=== PATIENT | male | born 1970 | race Caucasian/White ===

== ENCOUNTER 2018-03-23 19:41 | Emergency (ER) | payer OTHER ==
[~2018-03-23] VITALS: Ht 157.5 cm; Wt 49.9 kg
[2018-03-23 19:44] VITALS: BP 151/110
--- NOTE | 2018-03-23 20:01 | NUR ---
PT BIB WHEELCHAIR TO ER BED 9
--- NOTE | 2018-03-23 20:27 | NUR ---
PT TAKEN TO CT SCAN VIA WHEELCHAIR.
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
--- NOTE | 2018-03-23 20:48 | NUR ---
PT BACK FROM CT SCAN AT THIS TIME W/O INCIDENT.
--- NOTE | 2018-03-23 20:57 | NUR ---
PT TAKEN TO THE RESTROOM W/C ACCOMPANIED BY MYSELF, LUPE HUSSEIN. URINE SAMPLE COLLECTED. PT TAKEN BACK TO BED AT THIS TIME VIA W/C W/O INCIDENT. SAFETY PRECAUTIONS IN PLACE. VSS. PT NEEDS MET. WILL CONTINUE TO MONITOR.
--- NOTE | 2018-03-23 21:17 | NUR ---
PT RESTING COMFORTABLY IN [facility] AT THIS TIME WITH VSS. MOTHER AT BEDSIDE. RR EVEN AND UNLABORED. PT NEEDS MET. SAFETY PRECAUTIONS IN PLACE. WILL CONTINUE TO MONITOR.
[2018-03-23] MEDS ORDERED: BACITRACIN OINT 500 UNITS/GM PKT TP ONE (22:12)
--- NOTE | 2018-03-23 22:40 | NUR ---
PT TAKEN TO BATHROOM VIA WHEELCHAIR, PT ABLE TO WALK AND STAND TO TOILET BY HIMSELF.
[2018-03-23] MEDS ORDERED: ONDANSETRON 4 MG ODT PO ONE (23:10)
[2018-03-23 23:35] VITALS: BP 195/109
--- NOTE | 2018-03-23 23:35 | NUR ---
dr. pate made aware of patients bp on discharge.
--- NOTE | 2018-03-23 23:35 | NUR ---
Patient discharged with v/s stable. Written and verbal after care instructions given and explained. Patient verbalized understanding. Wheel Chair Assisted with to car. All questions addressed prior to discharge. Advised to follow up with PMD.
== END 2018-03-23 23:35 | disposition home or self-care (01) ==
LOC: MED 19:41
DX: S01.01XA Laceration without foreign body of scalp, initial encounter (principal); I10 Essential (primary) hypertension; W18.09XA Striking against other object with subsequent fall, initial encounter; Y93.89 Activity, other specified; Y92.89 Other specified places as the place of occurrence of the external cause; Y99.8 Other external cause status
CPT/HCPCS: 12002; 70450; 72125; 99284; S0119

== ENCOUNTER 2018-06-16 12:06 | Emergency (ER) | payer OTHER ==
[~2018-06-16] VITALS: Ht 157.5 cm; Wt 47.8 kg
[2018-06-16 12:17] VITALS: BP 132/93
--- NOTE | 2018-06-16 12:27 | NUR ---
PT AMB TO BED 3. REPORT GIVEN TO VI ANDRADE. Addendum: 06/16/18 at 1229 by [email or web address] AMB WITH WALKER
--- NOTE | 2018-06-16 12:30 | NUR ---
PT. CAME INTO THE ED DUE TO HEAD LAC X THIS MORNING. PT. STATES " THIS MORNING I WAS ABOUT TO WASH UP AND MY LEGS GAVE OUT AND I FELL AND HIT MY HEAD IN THE BOTTOM OF THE SHOWER". PT. IS AAOX4 , RR EVEN AND UNLABORED. PERLLA BILT. 3MM BRISK. PT. DENIES ANY N/V/D. DENIES ANY VISION CHANGES OR DIZZYNESS. 5/10 SHARP PAIN IN BACK OF HEAD. 1 INCH LACERATION NOTED TO BACK OF HEAD, BLEEDING CONTROLLED AT THIS TIME. ER MD NOTIFIED. WILL CONTINUE TO MONITOR. SAFETY PRECAUTIONS IMPLEMENTED.
[2018-06-16] MEDS ORDERED: NEOMYCIN/POLYMYXIN/BACITRACIN 0.9 GM/1 PKT TP ONE (13:15)
--- NOTE | 2018-06-16 14:00 | NUR ---
Patient discharged with v/s stable. Written and verbal after care instructions given and explained. Patient verbalized understanding. Ambulatory with steady gait. All questions addressed prior to discharge. Advised to follow up with PMD.
[2018-06-16 14:18] VITALS: BP 130/86
== END 2018-06-16 14:00 | disposition home or self-care (01) ==
LOC: MED 12:06
DX: S01.01XA Laceration without foreign body of scalp, initial encounter (principal); G71.0 Muscular dystrophy; R26.2 Difficulty in walking, not elsewhere classified; I10 Essential (primary) hypertension; W19.XXXA Unspecified fall, initial encounter; Y93.89 Activity, other specified; Y92.89 Other specified places as the place of occurrence of the external cause; Y99.8 Other external cause status
CPT/HCPCS: 99283

== ENCOUNTER 2019-04-09 12:00 | Emergency (ER) | payer OTHER ==
[~2019-04-09] VITALS: Ht 157.5 cm; Wt 48.5 kg
--- NOTE | 2019-04-09 12:20 | NUR ---
Patient ambulated to bed 8. RN evaluating patient at bedside.
[2019-04-09 12:24] VITALS: BP 155/110
--- NOTE | 2019-04-09 12:30 | NUR ---
Pt presents to ED with complaints of right rib pain s/p fall a week ago. Pt was seen at urgent care and was sent here for further evaluation. Patient states he was not evaluated s/p fall. Patient also c/o abdominal distention. Abdomen soft, tender with palpation, active bowel sounds x4 quadrants. AOX4, ambulates with front wheel walker, hx of muscular dystrophy.
--- NOTE | 2019-04-09 12:33 | NUR ---
Dr. Shahid evaluating patient at bedside.
[2019-04-09] MEDS ORDERED: HYDROcodone/APAP 5/325 MG 1 TAB TAB PO ONE (12:40)
[2019-04-09] MEDS ORDERED: KETOROLAC 60 MG/2 ML VIAL IM ONE (12:40)
--- NOTE | 2019-04-09 12:58 | NUR ---
Patient taken to XRAY via wheelchair by tech.
--- NOTE | 2019-04-09 13:16 | NUR ---
Patient returned from XRAY. RN re-evaluating patient at bedside.
[2019-04-09 13:59] VITALS: BP 149/92
--- NOTE | 2019-04-09 13:59 | NUR ---
Patient discharged with v/s stable. Written and verbal after care instructions given and explained. Patient alert, oriented and verbalized understanding of instructions. Ambulatory with steady gait with walker. All questions addressed prior to discharge. ID band removed. Patient advised to follow up with PMD. Rx of NORCO 5MG-325MG given. Patient educated on indication of medication including possible reaction and side effects. Opportunity to ask questions provided and answered.
== END 2019-04-09 13:59 | disposition home or self-care (01) ==
LOC: MED 12:00
DX: S22.41XA Multiple fractures of ribs, right side, initial encounter for closed fracture (principal); I10 Essential (primary) hypertension; W01.0XXA Fall on same level from slipping, tripping and stumbling without subsequent striking against object, initial encounter; Y93.89 Activity, other specified; Y92.89 Other specified places as the place of occurrence of the external cause; Y99.8 Other external cause status
CPT/HCPCS: 71101; 96372; 99283; J1885

== ENCOUNTER 2019-09-06 14:59 | Emergency (ER) | payer OTHER ==
[~2019-09-06] VITALS: Ht 157.5 cm; Wt 49.9 kg
[2019-09-06 15:15] VITALS: BP 140/98
[2019-09-06 16:23] LABS: BASOPHILS % (AUTO) 0.5 % (0.0-2.0); EOSINOPHILS # (AUTO) 0.2 K/uL (0-0.4); EOSINOPHILS % (AUTO) 1.8 % (0.0-4.0); HEMATOCRIT 47.1 % (36-52); HEMOGLOBIN 15.5 g/dL (12.0-18.0); LYMPHOCYTES # (AUTO) 1.7 K/uL (2.0-11.5); MEAN CORPUSCULAR HEMOGLOBIN 30 pg (27-31); MEAN CORPUSCULAR HGB CONC 33 g/dL (33-37); MEAN CORPUSCULAR VOLUME 89.7 fL (80-94); MONOCYTES # (AUTO) 0.6 K/uL (0.8-1.0); MONOCYTES % (AUTO) 6.3 % (1.7-9.3); NEUTROPHILS # (AUTO) 6.6 K/uL (1.8-7.7); NEUTROPHILS % (AUTO) 72.4 % (42.2-75.2); PLATELET COUNT (AUTO) 251 K/uL (140-450); RED BLOOD CELL COUNT(AUTO) 5.25 MIL/uL (4.20-6.10); RED CELL DISTRIBUTION WIDTH 13.5 % (11.6-13.7); WHITE BLOOD COUNT (AUTO) 9.1 K/uL (4.8-10.8)
[2019-09-06 16:57] LABS: ANION GAP 16.2 (8-16); CARBON DIOXIDE 30.4 mmol/L (21-32); CREATININE 0.6 mg/dL (0.7-1.3); POTASSIUM 4.6 mmol/L (3.5-5.1)
[2019-09-06 17:12] LABS: ALBUMIN 3.8 g/dL (3.4-5.0); THYROID STIMULATING HORMONE 1.79 uIU/mL (0.34-3.74)
[2019-09-06 17:31] LABS: TOTAL BILIRUBIN 0.3 mg/dL (0.0-1.0)
[2019-09-06 17:52] VITALS: BP 133/96
== END 2019-09-06 17:52 | disposition home or self-care (01) ==
LOC: MED 14:59
DX: R00.2 Palpitations (principal); I10 Essential (primary) hypertension
CPT/HCPCS: 36415; 71045; 80053; 84443; 84484; 85025; 85379; 93005; 99284; Q0092

== ENCOUNTER 2019-10-13 20:56 | Emergency (ER) | payer OTHER ==
[~2019-10-13] VITALS: Ht 157.5 cm; Wt 48.1 kg
[2019-10-13 21:00] VITALS: BP 150/83
--- NOTE | 2019-10-13 21:00 | NUR ---
TO BED # 02 VIA WHEEL CHAIR
--- NOTE | 2019-10-13 21:53 | NUR ---
49 YEAR OLD MALE COMPLAINS OF FALL EARLIER TODAY. PATIENT STATES THAT HE WAS MOVING ONTO HIS WHEELCHAIR AND THEN FELL AND HIT HIS HEAD. VISIBLE OPEN WOUND ON BACK OF HEAD, NO DISCHARGE, NO LONGER BLEEDING. PATIENT STATES HE FEELS DIZZY, PAIN 5/10 THROBBING. PATIENT DENIES LOC, AND NO NAUSEA/VOMITTING. PATIENT AOX4, BREATHING EVEN AND UNLABORED, SKIN WARM AND DRY. BED IN LOWEST POSITION, LOCKED, BED RAIL UPX1. PMH - MUSCULAR DYSTROPHY, HTN MEDICATIONS - METOPROLOL, FLUTICASONE ALLERGIES - NKA
--- NOTE | 2019-10-13 22:53 | NUR ---
PT RETURNED FROM CT
--- NOTE | 2019-10-13 23:00 | NUR ---
PATIENT ALERT AND ORIENTED, BREATHING EVEN AND UNLABORED
[2019-10-14 00:38] VITALS: BP 145/82
--- NOTE | 2019-10-14 00:38 | NUR ---
Patient discharged with v/s stable. Written and verbal after care instructions ABOUT HEAD INJURY given and explained. Patient verbalized understanding. Wheel Chair Assisted, to be picked up by family. All questions addressed prior to discharge. Advised to follow up with PMD.
== END 2019-10-14 00:38 | disposition home or self-care (01) ==
LOC: MED 20:56
DX: S06.0X0A Concussion without loss of consciousness, initial encounter (principal); S00.03XA Contusion of scalp, initial encounter; I10 Essential (primary) hypertension; W05.0XXA Fall from non-moving wheelchair, initial encounter; Y92.89 Other specified places as the place of occurrence of the external cause; Y93.89 Activity, other specified; Y99.8 Other external cause status
CPT/HCPCS: 70450; 99284

== ENCOUNTER 2020-01-10 11:59 | Emergency (ER) | payer OTHER, SELFPAY ==
[~2020-01-10] VITALS: Ht 165.1 cm; Wt 59.0 kg
[2020-01-10 11:59] VITALS: BP 160/104
[2020-01-10] MEDS ORDERED: PROPOFOL 1000 MG/100 ML PREMIX 100 ML IV ONE (12:08)
[2020-01-10] MEDS ORDERED: LORazepam 2 MG/ML VIAL ONE (12:09)
[2020-01-10] MEDS ORDERED: NACL 0.9% 500 ML IV ONE (12:20)
[2020-01-10] MEDS ORDERED: PANTOPRAZOLE 40 MG INJ VIAL IVP ONE (12:25)
[2020-01-10] MEDS ORDERED: ETOMIDATE 20 MG/10 ML VIAL IVP ONE (12:30)
[2020-01-10] MEDS ORDERED: ROCURONIUM 50 MG/5 ML VIAL IV ONE (12:30)
[2020-01-10] MEDS ORDERED: SUCCINYLCHOLINE CHLORIDE 200 MG/10 ML VIAL IVP ONE (12:30)
[2020-01-10] MEDS ORDERED: LORazepam 2 MG/ML VIAL IVP ONE (12:30)
[2020-01-10 13:35] LABS: BASOPHILS % (AUTO) 0.2 % (0.0-2.0); HEMATOCRIT 46.5 % (36-52); HEMOGLOBIN 15.1 g/dL (12.0-18.0); LYMPHOCYTES # (AUTO) 0.3 K/uL (2.0-11.5); LYMPHOCYTES % (AUTO) 2.9 % (20.5-51.1); MEAN CORPUSCULAR HEMOGLOBIN 30 pg (27-31); MEAN CORPUSCULAR HGB CONC 33 g/dL (33-37); MEAN CORPUSCULAR VOLUME 91.1 fL (80-94); MONOCYTES # (AUTO) 0.7 K/uL (0.8-1.0); MONOCYTES % (AUTO) 6.1 % (1.7-9.3); NEUTROPHILS # (AUTO) 10.3 K/uL (1.8-7.7); NEUTROPHILS % (AUTO) 90.8 % (42.2-75.2); PLATELET COUNT (AUTO) 235 K/uL (140-450); RED BLOOD CELL COUNT(AUTO) 5.11 MIL/uL (4.20-6.10); RED CELL DISTRIBUTION WIDTH 13.8 % (11.6-13.7); WHITE BLOOD COUNT (AUTO) 11.4 K/uL (4.8-10.8)
[2020-01-10 13:43] LABS: C-REACTIVE PROTEIN QUANT 1.2 mg/dL (0.0-0.9)
[2020-01-10] MEDS: fentaNYL 1 MG in NACL 0.9% 80 ML IV PRN ×2 (13:44→15:08)
[2020-01-10 13:49] LABS: ALBUMIN 3.5 g/dL (3.4-5.0); ANION GAP 15.7 (8-16); CARBON DIOXIDE 32.4 mmol/L (21-32); CREATININE 0.7 mg/dL (0.6-1.3); POTASSIUM 5.1 mmol/L (3.5-5.1); TOTAL BILIRUBIN 0.6 mg/dL (0.0-1.0)
[2020-01-10 13:52] LABS: ACETAMINOPHEN < 0.5 ug/ml (10-30); SALICYLATE < 2.8 mg/dL (2.8-20.0)
[2020-01-10 13:53] LABS: LACTATE DEHYDROGENASE 216 U/L (85-227)
[2020-01-10 13:54] LABS: PROTHROMBIN TIME 9.6 secs (10.8-13.4)
[2020-01-10 14:00] LABS: RSV NEGATIVE (NEGATIVE)
[2020-01-10 15:08] VITALS: BP 141/70
== END 2020-01-10 14:20 ==
LOC: EEVIPCON 11:59 → MED 11:59
DX: I21.9 Acute myocardial infarction, unspecified (principal); Z20.828 Contact with and (suspected) exposure to other viral communicable diseases; R41.82 Altered mental status, unspecified; J96.90 Respiratory failure, unspecified, unspecified whether with hypoxia or hypercapnia; I10 Essential (primary) hypertension
CPT/HCPCS: 31500; 36415; 71045; 80053; 82550; 82728; 83605; 83615; 83880; 84484; 85025; 85379; 85384; 85610; 85730; 86140; 87040; 87420; 87635; 87804; 96365; 96375; 99291; C9113; G0480; G0482; J2060; J2704; J3010; J3490; J7030; Q0092

== ENCOUNTER 2021-05-27 14:44 | Inpatient (IN) | payer OTHER, SELFPAY ==
[~2021-05-27] VITALS: Ht 165.1 cm; Wt 63.5 kg
[2021-05-27 15:09] VITALS: BP 157/137
[2021-05-27] MEDS ORDERED: LEVALBUTEROL 1.25 MG/0.5 ML NEBU INH ONE (15:10)
--- NOTE | 2021-05-27 15:18 | NUR ---
EKG PERFORMED AT BEDSIDE. EKG READS SINUS TACHYCARDIA @ 126
[2021-05-27 15:20] VITALS: BP 157/137
--- NOTE | 2021-05-27 15:35 | NUR ---
[facility] STATES HX GIVEN UPON INITIAL REPORT WAS INCORRECT, BUT WAS NOT ABLE TO PROVIDE UPDATED HX.
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
--- NOTE | 2021-05-27 15:46 | NUR ---
X-Ray at bedside.
--- NOTE | 2021-05-27 16:00 | NUR ---
FAMILY STATES HX IS ONLY HYPOTENSION AND MUSCULAR DYSTROPHY. [facility] GAVE WRONG MED HX.
[2021-05-27 16:04] LABS: BASOPHILS % (AUTO) 0.1 % (0.0-2.0); HEMATOCRIT 52.8 % (36-52); HEMOGLOBIN 16.8 g/dL (12.0-18.0); LYMPHOCYTES # (AUTO) 0.3 K/uL (2.0-11.5); LYMPHOCYTES % (AUTO) 2.2 % (20.5-51.1); MEAN CORPUSCULAR HEMOGLOBIN 29 pg (27-31); MEAN CORPUSCULAR HGB CONC 32 g/dL (33-37); MEAN CORPUSCULAR VOLUME 92.3 fL (80-94); MONOCYTES # (AUTO) 0.6 K/uL (0.8-1.0); MONOCYTES % (AUTO) 4.2 % (1.7-9.3); NEUTROPHILS # (AUTO) 13.8 K/uL (1.8-7.7); NEUTROPHILS % (AUTO) 93.5 % (42.2-75.2); PLATELET COUNT (AUTO) 238 K/uL (140-450); RED BLOOD CELL COUNT(AUTO) 5.72 MIL/uL (4.20-6.10); RED CELL DISTRIBUTION WIDTH 13.9 % (11.6-13.7); WHITE BLOOD COUNT (AUTO) 14.7 K/uL (4.8-10.8)
[2021-05-27] MEDS ORDERED: PIPERACILLIN/TAZOBACTAM 4.5 GM in DEXTROSE 5% 100 ML IV ONE (16:15)
[2021-05-27 16:24] LABS: ANION GAP 5.9 (8-16); CREATININE 0.4 mg/dL (0.6-1.3); TOTAL BILIRUBIN 0.3 mg/dL (0.0-1.0)
[2021-05-27 16:26] LABS: CARBON DIOXIDE 43.1 mmol/L (21-32)
[2021-05-27 16:27] LABS: CREATINE KINASE MB 2.7 ng/mL (0-3.6)
--- NOTE | 2021-05-27 16:45 | NUR ---
DECREASED FIO2 TO 40%
[2021-05-27] MEDS ORDERED: PIPERACILLIN/TAZOBACTAM 4.5 GM VIAL IV ONE (16:48)
--- NOTE | 2021-05-27 17:00 | NUR ---
DECREASED FIO2 TO 30%
--- NOTE | 2021-05-27 17:02 | NUR ---
CATIE WAS SWABBED AND GIVEN TO LAB
--- NOTE | 2021-05-27 18:04 | NUR ---
DECREASED FIO2 TO 28% SPO2 98%
--- NOTE | 2021-05-27 18:38 | NUR ---
NOVEL SWABBED AND LEFT WITH LAB
[2021-05-27] MEDS ORDERED: MAG SULF 2000 MG/WATER PREMIX 50 ML IV PRN (18:50)
[2021-05-27] MEDS ORDERED: MAGNESIUM OXIDE 400 MG TAB PO PRN (18:50)
[2021-05-27] MEDS ORDERED: HYDROcodone/APAP 5/325 MG 1 TAB TAB PO PRN (18:50)
[2021-05-27] MEDS ORDERED: POTASSIUM CHLORIDE 10 MEQ TABER PO PRN (18:50)
[2021-05-27] MEDS ORDERED: MORPHINE SULFATE 4 MG/ML SYR IVP PRN (18:50)
[2021-05-27] MEDS ORDERED: ONDANSETRON 4 MG/2 ML VIAL IVP PRN (18:50)
[2021-05-27] MEDS ORDERED: NACL 0.9% 1,000 ML IV ONE (19:00)
--- NOTE | 2021-05-27 19:15 | NUR ---
REPORT RECIEVED FROM LUPE ZAMORA FOR CONTINUITY OF CARE.
--- NOTE | 2021-05-27 19:18 | NUR ---
IV TO LAC PATENT. PT RESTING IN BED, EYES OPEN, RESPONSIVE TO VERBAL STIMULI AND TRACKING WITH EYES. REMAINS ON MONITOR. WILL CONTINUE TO MONITOR.
[2021-05-27] MEDS ORDERED: NOREPINEPHRINE 8 MG in DEXTROSE 5% 250 ML IV PRN (19:45)
--- NOTE | 2021-05-27 20:00 | NUR ---
O2 SAT NOTED 92%. PT REQUESTING SUCTIONING. SUCTIONED X 2 WITH RELIEF, O2 SAT NOW 99%.
[2021-05-27 20:08] VITALS: BP 102/69
--- NOTE | 2021-05-27 20:20 | NUR ---
RT AT BEDSIDE ASSESSING PT.
--- NOTE | 2021-05-27 21:15 | NUR ---
Patient appears to be resting comfortably in bed, EYES CLOSED. Vital Signs within normal limits. Respirations even and unlabored. REMAINS ON VENT. NO SIGNS OF DISTRESS AT THIS TIME. WILL CONTINUE TO MONITOR.
--- NOTE | 2021-05-27 21:40 | NUR ---
SPOKE WITH PTS MOTHER LISTED ON FILE. UPDATED REGARDING PT STATUS. ALL QUESTIONS ANSWERED.
--- NOTE | 2021-05-27 22:54 | NUR ---
Patient will be admitted to care of MD HEATHER. Admited to ICU. Will go to room 1. Belongings list completed. Report to LUPE PEREZ.
--- NOTE | 2021-05-27 23:05 | NUR ---
PROVIDED SUCTIONING X 2 PER PT REQUEST. O2 SAT REMAINS 96-97%. PT REPORTS RELIEF WITH HEAD NOD. RT AT BEDSIDE.
--- NOTE | 2021-05-27 23:10 | NUR ---
PT TAKEN VIA GURNEY TO ICU BED 1. TAKEN BY TL ANDRADE, SHAYNE EMT AND RD RT.
--- NOTE | 2021-05-27 23:10 | NUR ---
ADMITTED THIE 50 YEAR OLD MALE PATIENT FROM ER PER [facility] WITH THE ADMITTED DIAGNOSIS OF CHRONIC HYPOXIC RESPIRATORY FAILURE. PATIENT IS ON TRACH TO VENT AT 24% FI02; AWAKE, ALERT, FOLLOWS ONE STEP COMMANDS;CAN COMMUNICATE THRU GESTURES AND WHISPERS. CARDIACSCOPE SHOWS ON SINUS TACHY HR 107/MIN NO ARRHYTHMIAS SEEN. WITH SALINE LOCK IN PLACE TO RIGHT AC. ABDOMEN IS SOFT, ACTIVE BOWEL SOUNDS.
[2021-05-27 23:52] VITALS: BP 109/72
[2021-05-28] VITALS (19 sets, daily range): BP systolic 89–154; BP diastolic 43–107
[2021-05-28] MEDS ORDERED: PIPERACILLIN/TAZOBACTAM 3.375 GM VIAL IV ONE ×2 (00:32→06:03)
[2021-05-28] MEDS: PIPERACILLIN/TAZOBACTAM 3.375 GM in DEXTROSE 5% 50 ML IV SCH ×4 (00:45→18:32)
--- NOTE | 2021-05-28 04:00 | NUR ---
ABLE TO SLEEP WELL IN THE NIGHT.V/S WITHIN ACEPTABLE RANGE.
[2021-05-28 06:30] LABS: BASOPHILS % (AUTO) 0.4 % (0.0-2.0); EOSINOPHILS % (AUTO) 0.6 % (0.0-4.0); HEMATOCRIT 43.3 % (36-52); LYMPHOCYTES # (AUTO) 1.2 K/uL (2.0-11.5); LYMPHOCYTES % (AUTO) 14.4 % (20.5-51.1); MEAN CORPUSCULAR HEMOGLOBIN 29 pg (27-31); MEAN CORPUSCULAR HGB CONC 32 g/dL (33-37); MEAN CORPUSCULAR VOLUME 90.8 fL (80-94); MONOCYTES # (AUTO) 0.5 K/uL (0.8-1.0); MONOCYTES % (AUTO) 5.7 % (1.7-9.3); NEUTROPHILS # (AUTO) 6.7 K/uL (1.8-7.7); NEUTROPHILS % (AUTO) 78.9 % (42.2-75.2); PLATELET COUNT (AUTO) 207 K/uL (140-450); RED BLOOD CELL COUNT(AUTO) 4.76 MIL/uL (4.20-6.10); RED CELL DISTRIBUTION WIDTH 13.7 % (11.6-13.7); WHITE BLOOD COUNT (AUTO) 8.4 K/uL (4.8-10.8)
[2021-05-28 07:03] LABS: ALBUMIN 2.8 g/dL (3.4-5.0); ANION GAP 13.2 (8-16); CARBON DIOXIDE 28.9 mmol/L (21-32); CREATININE 0.4 mg/dL (0.6-1.3); POTASSIUM 4.1 mmol/L (3.5-5.1); TOTAL BILIRUBIN 1.1 mg/dL (0.0-1.0)
--- NOTE | 2021-05-28 07:30 | NUR ---
RECEIVED REPORT FROM TILE MECHANIC HELPER NURSE. PT ASLEEP IN BED WITH HOB ELEVATED. PT ALERT AND ABLE TO MAKE NEEDS KNOWN. FLACC 0, TRACH TO VENT AC/VC FIO2 24%, TV 400, R 16, PEEP 5. WITH LAC PERIPHERAL LINE RUNNING NS AT TKO. SKIN INTACT. SAFETY AND ISOLATION PRECAUTIONS IN PLACE. WILL CONTINUE TO MONITOR
--- NOTE | 2021-05-28 07:34 | NUR ---
FOUND PT ON THE FOLLOWING SETTINGS AC 16, VT 400, PEEP 5, FIO2 24%. WILL CONTINUE TO MONITOR.
--- NOTE | 2021-05-28 08:40 | NUR ---
PATIENT HAS BEEN SCREENED AND CATEGORIZED HIGH NUTRITION RISK. PATIENT WILL BE SEEN WITHIN 1-2 DAYS OF ADMISSION. 05/28/21-05/29/[address]
[2021-05-28] MEDS: DOCUSATE SODIUM 100 MG GELCAP PO SCH (09:00)
--- NOTE | 2021-05-28 09:30 | NUR ---
DUE MORNING MEDS GIVEN. TOLERATED PO MEDS AND THIN LIQUIDS WELL,
[2021-05-28] MEDS ORDERED: MAG SULF 2000 MG/WATER PREMIX 50 ML IV SCH (11:00)
--- NOTE | 2021-05-28 11:02 | NUR ---
LARGE LOOSE BM X1, DIAPER CHANGED, PERICARE DONE, PT ABLE TO TURN SIDE TO SIDE WITH SOME ASSIST.
--- NOTE | 2021-05-28 11:50 | NUR ---
PT TAKEN TO CT FOR CTA CHEST WITH RN AND RT
--- NOTE | 2021-05-28 12:30 | NUR ---
REPORT GIVEN TO LAILA ANDRADE, PT TAKEN TO 128B TELE PER TRANSFER ORDER.
--- NOTE | 2021-05-28 12:35 | NUR ---
PT ARRIVED ON UNIT VIA BED. PT ASSESSED. ALL SAFETY MEASURE SIN BED. PT ORIENTED TO ROOM AN DCALL LIGHTS PT NODDED AND MOUTHED UNDERSTANDING.
--- NOTE | 2021-05-28 12:42 | NUR ---
PHONE CALL MADE TO ARMEN RIVERA TO NOTIFY OF TRANSFER TO TELE 128B.
--- NOTE | 2021-05-28 14:20 | NUR ---
PT CHANGED AND REPOSITIONED. CALL LIGHT WITHIN REACH ALL SAFETY MEASURES ARE IN PLACE
--- NOTE | 2021-05-28 14:46 | NUR ---
05/28/21 RD INITIAL ASSESSMENT COMPLETED PLEASE REFER TO NUTRITION ASSESSMENT UNDER CARE ACTIVITY FOR ESTIMATED NUTRITIONAL NEEDS. 1. CONTINUE CLEAR LIQUIDS DIET MEDICALLY APPROPRIATE 2. ADVANCE TO REGULAR DIET FOLLOWED AT HOME 3. PROVIDE ASSISTANCE IF NEEDED 4. IF PO INTAKE <75% CONSIDER ENSURE BID 5. RD TO FOLLOW-UP 2-3 DAYS, HIGH RISK TL BEARD RD
--- NOTE | 2021-05-28 15:46 | NUR ---
PT SUCTIONED AND CHANGED. ALL SAFETY MEASURES ARE IN PLACE
--- NOTE | 2021-05-28 16:30 | NUR ---
RECEIVED CALL FROM LAB FOR ELEVATED LEVEL OF 31.2 LACTIC ACID. WILL NOTIFY
--- NOTE | 2021-05-28 17:48 | NUR ---
PT CHANGED REPOSITIONED ALL LINEN AND GOWN CHANGED, PT SUCTIONED. ALL SAFETY MEASURES ARE IN PLACE. CALL LIGHT WITHIN REACH
--- NOTE | 2021-05-28 18:53 | NUR ---
PT ROUNDED ON 02% 93 NO S/SX OF DISTRESS. PT FED AND REPOSITIONED
--- NOTE | 2021-05-28 19:10 | NUR ---
PT RESTING IN BED NO S/SX OF DISTRESS WILL ENDORSE TO VOCAL MUSIC TEACHER NURSE FOR CONTINUITY OF CARE
--- NOTE | 2021-05-28 19:25 | NUR ---
PT ENDORSED TO AUTOMATIC SPINNING LATHE SETTER RN, FOR CONTINUITY OF CARE .
--- NOTE | 2021-05-28 19:25 | NUR ---
RECEIVED PATIENT FROM AM SHIFT NURSE FOR CONTINUITY OF CARE. ALERT AND ABLE TO MAKE NEEDS KNOWN. TRACH TO VENT. RESPIRATIONS EVEN, UNLABORED. NO S/S RESPIRATORY DISTRESS. O2SAT 93%. NO C/O PAIN. SKIN WARM, DRY. SALINE LOCK TO LEFT AC 20G PATENT/INTACT. ABDOMEN SOFT, NONTENDER, NONDISTENDED. BOWEL SOUNDS ACTIVE x4 QUADRANTS. PATIENT IS INCONTINENT OF B/B. PLAN OF CARE DISCUSSED. CALL LIGHT IN REACH. SAFETY PRECAUTIONS IN PLACE. ISOLATION PRECAUTIONS OBSERVED BY ALL STAFF.
[2021-05-28] MEDS: FAMOTIDINE 20 MG/2 ML VIAL IV SCH (20:40)
--- NOTE | 2021-05-28 21:30 | NUR ---
DUE MEDS GIVEN. PATIENT RESTING COMFORTABLY IN BED. NO S/S RESPIRATORY DISTRESS. NO C/O PAIN. PATIENT IS CLEAN/DRY. CALL LIGHT IN REACH. SAFETY PRECAUTIONS IN PLACE. ISOLATION PRECAUTIONS OBSERVED BY ALL STAFF.
--- NOTE | 2021-05-28 23:00 | NUR ---
MADE ROUNDS. PATIENT RESTING COMFORTABLY IN BED. NO S/S RESPIRATORY DISTRESS. NO C/O PAIN. PATIENT IS CLEAN/DRY. CALL LIGHT IN REACH. SAFETY PRECAUTIONS IN PLACE. ISOLATION PRECAUTIONS OBSERVED BY ALL STAFF.
[2021-05-29] VITALS: BP 147/89
[2021-05-29] MEDS: PIPERACILLIN/TAZOBACTAM 3.375 GM in DEXTROSE 5% 50 ML IV SCH ×5 (00:14→23:43)
--- NOTE | 2021-05-29 01:31 | NUR ---
INCONTINENT CARE RENDERED WITH ENGROSSER AT BEDSIDE. NO S/S RESPIRATORY DISTRESS. NO C/O PAIN. CALL LIGHT IN REACH. SAFETY PRECAUTIONS IN PLACE. ISOLATION PRECAUTIONS OBSERVED BY ALL STAFF.
--- NOTE | 2021-05-29 03:49 | NUR ---
VAP ORAL CARE RENDERED.
[2021-05-29 04:00] VITALS: BP 144/95
--- NOTE | 2021-05-29 05:03 | NUR ---
PATIENT RESTING COMFORTABLY IN BED. NO S/S RESPIRATORY DISTRESS. NO C/O PAIN. PATIENT IS CLEAN/DRY. CALL LIGHT IN REACH. SAFETY PRECAUTIONS IN PLACE. ISOLATION PRECAUTIONS OBSERVED BY ALL STAFF.
[2021-05-29 05:59] LABS: BASOPHILS % (AUTO) 0.2 % (0.0-2.0); EOSINOPHILS % (AUTO) 0.1 % (0.0-4.0); HEMATOCRIT 45.7 % (36-52); HEMOGLOBIN 15.3 g/dL (12.0-18.0); LYMPHOCYTES % (AUTO) 8.2 % (20.5-51.1); MEAN CORPUSCULAR HEMOGLOBIN 29 pg (27-31); MEAN CORPUSCULAR HGB CONC 33 g/dL (33-37); MEAN CORPUSCULAR VOLUME 87.6 fL (80-94); MONOCYTES # (AUTO) 0.6 K/uL (0.8-1.0); MONOCYTES % (AUTO) 5.4 % (1.7-9.3); NEUTROPHILS # (AUTO) 10.1 K/uL (1.8-7.7); NEUTROPHILS % (AUTO) 86.1 % (42.2-75.2); PLATELET COUNT (AUTO) 226 K/uL (140-450); RED BLOOD CELL COUNT(AUTO) 5.22 MIL/uL (4.20-6.10); RED CELL DISTRIBUTION WIDTH 13.8 % (11.6-13.7); WHITE BLOOD COUNT (AUTO) 11.7 K/uL (4.8-10.8)
[2021-05-29 06:13] LABS: ANION GAP 11.7 (8-16); CARBON DIOXIDE 26.2 mmol/L (21-32); CREATININE 0.4 mg/dL (0.6-1.3); MAGNESIUM 2.1 mg/dL (1.8-2.4); TOTAL BILIRUBIN 1.2 mg/dL (0.0-1.0)
[2021-05-29 06:41] LABS: POTASSIUM 2.9 mmol/L (3.5-5.1)
[2021-05-29] MEDS: KCL 20 MEQ/WATER INJ PREMIX 200 ML IV PRN (06:44)
--- NOTE | 2021-05-29 07:33 | NUR ---
ENDORSED TO AM SHIFT NURSE FOR CONTINUITY OF CARE.
--- NOTE | 2021-05-29 07:35 | NUR ---
RECEIVED PATIENT FROM REPLENISHER NURSE FOR CONTINUITY OF CARE. ALERT AND ABLE TO MAKE NEEDS KNOWN. TRACH TO VENT. RESPIRATIONS EVEN, UNLABORED. NO S/S RESPIRATORY DISTRESS. O2SAT 93%. NO C/O PAIN. SKIN WARM, DRY. SALINE LOCK TO LEFT AC 20G PATENT/INTACT. ABDOMEN SOFT, NONTENDER, NONDISTENDED. BOWEL SOUNDS ACTIVE x4 QUADRANTS. PATIENT IS INCONTINENT OF B/B. PLAN OF CARE DISCUSSED. CALL LIGHT IN REACH. SAFETY PRECAUTIONS IN PLACE. ISOLATION PRECAUTIONS OBSERVED BY ALL STAFF.
[2021-05-29 08:00] VITALS: BP 148/105
--- NOTE | 2021-05-29 08:00 | NUR ---
RECEIVED ON A Evermind R860 VENTILATOR PLUGGED INTO RED OUTLET TOLERATING WELL WITHOUT ADVERSE REACTIONS NOTED TO A PORTEX #8 AIRWAY SECURED WITH A SHON TRACH TIE CUFF PRESSURE CHECKED NOTED AMBU BAG NOTED AT BEDSIDE EQUAL CHEST RISE DEEP TRACHEAL SUCTION FOR SMALL SEMI THICK YELLOW/GREEN SECRETIONS AIRWAY PATENT
[2021-05-29] MEDS ORDERED: ENOXAPARIN 40 MG/0.4 ML SYR SUBQ SCH (09:00)
[2021-05-29] MEDS: FAMOTIDINE 20 MG/2 ML VIAL IV SCH ×2 (09:34→21:23)
[2021-05-29] MEDS: DOCUSATE SODIUM 100 MG GELCAP PO SCH (09:35)
--- NOTE | 2021-05-29 10:40 | NUR ---
PATIENT'S MOTHER CALLED TO CHECK IN ON HIM. UPDATED HER WITH HIS CONDITION AND STATUS. SHE SAID SHE WILL BE IN TO SEE HIM THROUGH THE WINDOW LATER.
[2021-05-29 12:30] VITALS: BP 140/108
--- NOTE | 2021-05-29 13:40 | NUR ---
ORDER FOR UDS, URINE SAMPLE OBTAINED VIA CLEAN CATCH. URINE HART COLOR. URINE SAMPLE DROPPED OF TO LAB. INFORMED DR. ROMERO OF [facility]. DR. ROMERO ORDER UA AND CX WELL TO HOLD LOVENOX. CALLED LAB TO VERIFY IF URINE SAMPLE WAS ENOUGH. THEY STATED YES. PCR RESULTS CAME BACK, PATIENT NEGATIVE FOR COVID. CALLED PT'S MOTHER TO INFORM HER THAT PT IS NEGATIVE. WILL CONTINUE TO MONITOR PATIENT.
[2021-05-29 13:43] LABS: BARBITURATE, URINE NEGATIVE ng/ml (NEG <=200); BENZODIAZEPINE, URINE NEGATIVE ng/mL (NEG <=200); CANNABINOID, URINE NEGATIVE ng/mL (NEG <=50); COCAINE, URINE NEGATIVE ng/mL (NEG <=300); OPIATE, URINE NEGATIVE ng/mL (NEG <=2000); PHENCYCLIDINE SCREEN,URINE NEGATIVE ng/mL (NEG <=25)
--- NOTE | 2021-05-29 14:48 | NUR ---
NO DISTRESS NOTED GOOD CHEST RISE AND AERATION THROUGHOUT BILATERAL LUNG FERMIN AIRWAY PATENT
[2021-05-29 16:00] VITALS: BP 146/106
--- NOTE | 2021-05-29 17:58 | NUR ---
STABLE GOOD CHEST RISE AND AERATION THROUGHOUT BILATERAL LUNG FERMIN AIRWAY PATENT KY/RN AT BEDSIDE FOR ORAL HYGIENE
--- NOTE | 2021-05-29 19:35 | NUR ---
REPORT GIVEN TON FURNACE ERECTOR NURSE AT BEDSIDE FOR CONTINUITY OF CARE. PATIENT IN STABLE CONDITION.
--- NOTE | 2021-05-29 19:45 | NUR ---
RECEIVED BEDSIDE ENDORSEMENT FROM AM SHIFT RN. PATIENT IS TRACH TO VENT- BIPAP, SETTINGS: A/C VC FIO2 28%, RR 16MIN, PEEP 5, TV 400, LAC 20G, SKIN IS INTACT, SAFETY MEASURES IN PLACE, NO SIGNS OF DISTRESS, WILL CONTINUE TO MONITOR.
[2021-05-29 20:00] VITALS: BP 142/105
[2021-05-29] MEDS: ALBUTEROL SULFATE/IPRATROPIU 3 ML SOL IH PRN (20:04)
[2021-05-29] MEDS: ACETYLCYSTEINE 10% (100 MG/ML) 100 MG/ML VIAL INH PRN (20:04)
--- NOTE | 2021-05-29 21:23 | NUR ---
ADMINISTERED 2100 MEDICATION ORDERED.
[2021-05-30] VITALS: BP 134/98
--- NOTE | 2021-05-30 02:00 | NUR ---
PATIENT IS ASLEEP. NO SOB NOTED. CALL LIGHT WITHIN REACH.
[2021-05-30 04:00] VITALS: BP 146/112
[2021-05-30] MEDS: PIPERACILLIN/TAZOBACTAM 3.375 GM in DEXTROSE 5% 50 ML IV SCH ×3 (05:33→18:00)
--- NOTE | 2021-05-30 05:35 | NUR ---
ZOSYN GIVEN ORDERED
[2021-05-30 06:21] LABS: BASOPHILS % (AUTO) 0.2 % (0.0-2.0); EOSINOPHILS # (AUTO) 0.2 K/uL (0-0.4); EOSINOPHILS % (AUTO) 1.3 % (0.0-4.0); HEMOGLOBIN 15.2 g/dL (12.0-18.0); LYMPHOCYTES # (AUTO) 0.9 K/uL (2.0-11.5); LYMPHOCYTES % (AUTO) 6.8 % (20.5-51.1); MEAN CORPUSCULAR HEMOGLOBIN 29 pg (27-31); MEAN CORPUSCULAR HGB CONC 33 g/dL (33-37); MEAN CORPUSCULAR VOLUME 88.5 fL (80-94); MONOCYTES # (AUTO) 0.7 K/uL (0.8-1.0); MONOCYTES % (AUTO) 5.4 % (1.7-9.3); NEUTROPHILS # (AUTO) 11.2 K/uL (1.8-7.7); NEUTROPHILS % (AUTO) 86.3 % (42.2-75.2); PLATELET COUNT (AUTO) 251 K/uL (140-450); RED CELL DISTRIBUTION WIDTH 14.2 % (11.6-13.7)
[2021-05-30 06:43] LABS: ALBUMIN 2.8 g/dL (3.4-5.0); ANION GAP 14.9 (8-16); CARBON DIOXIDE 26.5 mmol/L (21-32); CREATININE 0.6 mg/dL (0.6-1.3); MAGNESIUM 2.1 mg/dL (1.8-2.4); POTASSIUM 3.4 mmol/L (3.5-5.1); TOTAL BILIRUBIN 1.1 mg/dL (0.0-1.0)
--- NOTE | 2021-05-30 07:49 | NUR ---
PASSED ON ENDORSEMENT TO AM SHIFT RN.
--- NOTE | 2021-05-30 08:00 | NUR ---
NURSE REPORT REPORT OBTAINED FROM NIGHT NURSE CRICKET TO ASSUME CARE OF PATIENT. SBAR GIVEN AND ALL QUESTIONS ANSWERED. ZOSYN HAD RUN OVER 1 HR AT 100 ML/HR. THEN IV NS AT 5 ML/HR.
--- NOTE | 2021-05-30 08:10 | NUR ---
NURSE NOTES VSS. AFEB. TELE ST 104. ON THE VENTILATOR WITH 30% TRACH TO VENT. TIDAL VOLUME- 400. IV NS AT TKO 5 ML/HR.
[2021-05-30 08:42] VITALS: BP 158/119
[2021-05-30] MEDS: FAMOTIDINE 20 MG/2 ML VIAL IV SCH ×2 (09:00→21:13)
[2021-05-30] MEDS: DOCUSATE SODIUM 100 MG GELCAP PO SCH (09:00)
--- NOTE | 2021-05-30 11:10 | NUR ---
RESTING WELL GOOD CHEST RISE DEEP TRACHEAL SUCTION FOR SMALL THIN PALE YELLOW SECRETIONS AIRWAY PATENT
--- NOTE | 2021-05-30 12:00 | NUR ---
NURSE NOTES VSS. AFEB. SUCTIONED PRN FROM TRACH. NO C/O PAIN. ON ZOSYN 3.375 Q6H. TELE- SINUS TACHY 109.
--- NOTE | 2021-05-30 14:15 | NUR ---
AWAKE AND ALERT "MOUTHING WORDS" NO SOB NOTED EQUAL CHEST RISE AIRWAY
--- NOTE | 2021-05-30 16:18 | NUR ---
NURSE NOTES VSS. AFEB. TELE SINUS TACHY 108. NO C/O PAIN OR DISCOMFORT.
--- NOTE | 2021-05-30 19:35 | NUR ---
NURSE NOTES AND ENDORSEMENT ' REPORT GIVEN TO NIGHT NURSE CRICKET TO ASSUME CQRE OF PATIENT. SBAR GIVEN AND ALL QUESTIONS ANSWERED. JHON WEBER
--- NOTE | 2021-05-30 19:35 | NUR ---
RECEIVED PATIENT FROM AM NURSE IN SEMI WHITE'S WITH TRACH TO VENT. NO S/S OF RESPIRATORY DISTRESS. BREATHING REGULAR NON LABORED. ALL SAFETY MEASURES ARE IN PLACE. CALL LIGHT WITHIN REACH. WILL CONTINUE TO MONITOR.
[2021-05-30 20:00] VITALS: BP 137/92
--- NOTE | 2021-05-30 21:13 | NUR ---
SCHEDULED MEDS GIVEN PER MD ORDERED.
[2021-05-31] VITALS (7 sets, daily range): BP systolic 124–140; BP diastolic 85–103
[2021-05-31] MEDS: PIPERACILLIN/TAZOBACTAM 3.375 GM in DEXTROSE 5% 50 ML IV SCH ×4 (01:02→17:13)
--- NOTE | 2021-05-31 02:25 | NUR ---
PATIENT IS SLEEPING. NO SIGNS OF DISTRESS NOTED. CALL LIGHT WITHIN REACH. ALL SAFETY PRECAUTIONS ARE IN PLACE.
--- NOTE | 2021-05-31 03:20 | NUR ---
SUCTIONED PATIENT. KEPT CLEAN AND DRY. AFEBRILE. CALL LIGHT WITHIN REACH. SAFETY MEASURES IN PLACE.
[2021-05-31 07:03] LABS: BASOPHILS % (AUTO) 0.2 % (0.0-2.0); EOSINOPHILS # (AUTO) 0.3 K/uL (0-0.4); HEMATOCRIT 44.6 % (36-52); HEMOGLOBIN 14.7 g/dL (12.0-18.0); LYMPHOCYTES % (AUTO) 9.5 % (20.5-51.1); MEAN CORPUSCULAR HEMOGLOBIN 29 pg (27-31); MEAN CORPUSCULAR HGB CONC 33 g/dL (33-37); MEAN CORPUSCULAR VOLUME 88.9 fL (80-94); MONOCYTES # (AUTO) 0.5 K/uL (0.8-1.0); MONOCYTES % (AUTO) 4.9 % (1.7-9.3); NEUTROPHILS # (AUTO) 8.6 K/uL (1.8-7.7); NEUTROPHILS % (AUTO) 82.4 % (42.2-75.2); PLATELET COUNT (AUTO) 251 K/uL (140-450); RED BLOOD CELL COUNT(AUTO) 5.02 MIL/uL (4.20-6.10); RED CELL DISTRIBUTION WIDTH 13.7 % (11.6-13.7); WHITE BLOOD COUNT (AUTO) 10.5 K/uL (4.8-10.8)
--- NOTE | 2021-05-31 07:25 | NUR ---
ENDORSED TO AM NURSE FOR CONTINUITY OF CARE. PATIENT IS STABLE.
[2021-05-31 07:30] LABS: ALBUMIN 2.8 g/dL (3.4-5.0); ANION GAP 14.3 (8-16); CARBON DIOXIDE 26.4 mmol/L (21-32); CREATININE 0.5 mg/dL (0.6-1.3)
[2021-05-31] MEDS: ALBUTEROL SULFATE/IPRATROPIU 3 ML SOL IH PRN ×2 (07:33→17:18)
[2021-05-31] MEDS: ACETYLCYSTEINE 10% (100 MG/ML) 100 MG/ML VIAL INH PRN ×2 (07:34→17:18)
--- NOTE | 2021-05-31 07:35 | NUR ---
RECEIVED ON A [employer] R860 VENTILATOR PLUGGED INTO RED OUTLET TOLERATING WELL WITHOUT ADVERSE REACTIONS NOTED TO A PORTEX DCT #8 AIRWAY SECURED WITH A SHON TRACH TIE CUFF PRESSURE CHECKED NOTED AMBU BAG NOTED AT BEDSIDE LOC AWAKE AND ALERT GOOD CHEST RISE REVIEWED CHEST/THORAX IMPRESSION DATED 05/28/21 HHN PRN THERAPY GIVEN WITH RESPIRATORY DRUGS ORDERED PLUS CPT DEEP TRACHEAL SUCTION SMALL THIN SCATTERED YELLOW SECRETIONS AIRWAY PATENT
--- NOTE | 2021-05-31 08:00 | NUR ---
NURSE REPORT REPORT OBTAINED FROM NIGHT NURSE CRICKET AND THIS NURSE ASSUMED CARE OF PATIENT. VS TAKEN. TEMP 99.4 F. ON VENTILATOR TO TRACH. KCL GIVEN BY NIGHT NURSE. NO C/O PAIN OR DISTRESS. TELE MONITOR ST 101. IV NS AT 5 ML/HR AFTER ZOSYN GIVEN BY NIGHT NURSE.
[2021-05-31 08:11] LABS: POTASSIUM 2.7 mmol/L (3.5-5.1)
[2021-05-31] MEDS: DOCUSATE SODIUM 100 MG GELCAP PO SCH ×2 (09:00→09:49)
[2021-05-31] MEDS: FAMOTIDINE 20 MG/2 ML VIAL IV SCH ×2 (09:46→21:01)
[2021-05-31] MEDS: KCL 20 MEQ/WATER INJ PREMIX 200 ML IV PRN (10:12)
--- NOTE | 2021-05-31 11:31 | NUR ---
DC PLANNIN YRS OLD MALE PATIENT WAS ADMITTED FROM HOME WITH A DX OF ACUTE ON CHRONIC HYPOXIC RESP FAILURE. PATIENT HAS A HX OF CHRONIC RESP FAILURE S/P TRACH G-TUBE , PT LIVES WITH GAMILY WITH T PIECE. ADMITTED TO ICU ON VENT FIO2 50% CXR SHOWED LEFT LOWER LOBE CONSOLIDATIONS , CT CHEST SHOWED NO PE. COVID TEST NEGATIVE. ADMINISTERED IVF, IV ABX MEROPENEM CONSULTED WITH PULMO AND ID . DC PLAN PER PATIENT RESPOND TO THE TREATMENT. CM TO FOLLOW Addendum: 06/07/21 at 1149 by Priti Edwards RN DC PLANNING: PATIENT IS STILL ON T-VENT FIO2 40% UNABLE TO WEAN OFF FROM VENT, CONTINUE MEROPENEM FOR ESBL OF THE SPUTUM. DC PLAN TO WEAN OF FROM VENT. CM TO FOLLOW Addendum: 06/07/21 at 1150 by Priti Edawrds RN DC PLANNING: PATIENT HAS AN ORDER FOR [facility], FAXED TO [facility]. CM TO FOLLOW Addendum: 06/07/21 at 1546 by Priti Edwards RN DC PLANNING: SPOKE WITH PT'S MOTHER MIGUEL STATED NO FOR LTAC AND REQUESTED TO DISCUSS WITH HOSPICE. THE PLAN IS TO TAKE HIM HOME WITH HOSPICE PER MIGUEL PT HAS A VENT AT HOME. [facility] FROM [facility] WILL FOLLOW UP. CM TO FOLLOW Addendum: 06/09/21 at 1627 by Priti Edwards RN DC PLANNING: PATIENT HAS DC ORDER TO GO HOME WITH VENT. PER MOTHER SHE HAS A VENT AT HOME AND TRAINED TO TAKE CARE OF IT AND REQUESTED TO RESUME THE CARE WITH [facility]. CALLED [facility] [phone] ,FAXED ALL PAPER WORK TO [facility]. [facility]ANGE TRANSPORT WITH [facility]-RT CARE TO HOME , AVNI FROM [facility] WILL CLARIFY WITH PT'S MOTHER MIGUEL. PER MIGUEL WILL BE HOME . BUSINESS PROJECT MANAGER TIME 1800 NOTIFIED LIZBETH CHARGE NURSE.
--- NOTE | 2021-05-31 12:00 | NUR ---
NURSE NOTES VSS. AFER. TELE MONITOR ST 106. TRACH TO VENTILATOR AT FIo2 30%. 400 ML TIDAL VOLUME. SUCTIONED PRN FROM TRACH AND MOUTH. TAKING LIQUID DIET WELL. MOTHER AT BEDSIDE.
--- NOTE | 2021-05-31 14:05 | NUR ---
DR. ROMERO APPROVED ST EVAL ORDER.
--- NOTE | 2021-05-31 14:38 | NUR ---
STABLE GOOD CHEST RISE DEEP TRACHEAL SUCTION FOR COPIOUS THIN PALE YELLOW SECRETIONS AIRWAY PATENT SATURATIONS 89% ON FIO2 OF 30% PEEP 5cmH2O INCREASED FIO2 TO 40% JHON/RN NOTIFIED
--- NOTE | 2021-05-31 15:07 | NUR ---
05/31/21 RD FOLLOW UP COMPLETED PLEASE REFER TO NUTRITION ASSESSMENT UNDER CARE ACTIVITY FOR ESTIMATED NUTRITIONAL NEEDS. 1. CONTINUE CLEAR LIQUIDS DIET MEDICALLY APPROPRIATE 2. ENSURE CLEAR TID WILL BE ADDED 3. RECOMMENDED A SWALLOW EVALUATION 4. IF PT FAILS SWALLOW EVAL, CONSIDER ENTERAL NUTRITION, CONSULT RD 5. RD TO FOLLOW-UP 2-3 DAYS, HIGH RISK TL BEARD, RD
--- NOTE | 2021-05-31 16:00 | NUR ---
NURSE NOTES VSS. AFEB. TELE MONITOR 131 , BUT VS IN ROOM HAS HR 68. NO C/O PAIN OR DISCOMFORT. MOM AT BEDSIDE. ON IVPB ZOSYN 3.375 GIVEN Q6H. CALL LIGHT WITHIN REACH. BED IN LOW POSITION.
--- NOTE | 2021-05-31 17:12 | NUR ---
STABLE NO DISTRESS NOTED GOOD CHEST RISE DEEP TRACHEAL SUCTION FOR MODERATE THIN YELLOW SECRETIONS AIRWAY PATENT
--- NOTE | 2021-05-31 19:30 | NUR ---
RECEIVED PATIENT FROM AM SHIFT NURSE FOR CONTINUITY OF CARE. ALERT, ABLE TO MAKE NEEDS KNOWN. TRACH TO VENT. RESPIRATIONS EVEN, UNLABORED. NO S/S RESPIRATORY DISTRESS. O2 SAT 97%. S1/S2 AUSCULTATED. TELE MONITORING. DENIES PAIN. SKIN WARM, DRY. SALINE LOCK TO LEFT AC 20G PATENT/INTACT. ABDOMEN SOFT, NONTENDER, NONDISTENDED. BOWEL SOUNDS ACTIVE x4 QUADRANTS. PATIENT IS INCONTINENT OF B/B. CALL LIGHT IN REACH. PLAN OF CARE DISCUSSED. ISOLATION PRECAUTIONS OBSERVED. SAFETY PRECAUTIONS IN PLACE.
--- NOTE | 2021-05-31 19:40 | NUR ---
NURSE REPORT AND ENDORSEMENT NIGHT NURSE CONSTANTIN HAD THE PATIENT LAST NIGHT. GIVEN SBAR AND ALL QUESTIONS ANSWERED.
[2021-05-31] MEDS ORDERED: MEROPENEM 1,000 MG VIAL IV ONE (20:44)
[2021-05-31] MEDS: MEROPENEM 1,000 MG in NACL 0.9% 100 ML IV SCH (21:03)
--- NOTE | 2021-05-31 21:30 | NUR ---
DUE MEDS GIVEN. NO S/S RESPIRATORY DISTRESS. NO C/O PAIN. PATIENT IS CLEAN/DRY. CALL LIGHT IN REACH. ISOLATION PRECAUTIONS OBSERVED. SAFETY PRECAUTIONS IN PLACE.
--- NOTE | 2021-05-31 23:29 | NUR ---
PATIENT RESTING COMFORTABLY IN BED. NO S/S RESPIRATORY DISTRESS. NO C/O PAIN. PATIENT IS CLEAN/DRY. CALL LIGHT IN REACH. ISOLATION PRECAUTIONS OBSERVED. SAFETY PRECAUTIONS IN PLACE.
[2021-06-01] VITALS (7 sets, daily range): BP systolic 110–139; BP diastolic 69–91
--- NOTE | 2021-06-01 01:06 | NUR ---
MADE ROUNDS. PATIENT IS ASLEEP. NO S/S RESPIRATORY DISTRESS. PATIENT IS CLEAN/DRY. CALL LIGHT IN REACH. ISOLATION PRECAUTIONS OBSERVED. SAFETY PRECAUTIONS IN PLACE.
--- NOTE | 2021-06-01 03:11 | NUR ---
PATIENT IS ASLEEP. NO S/S RESPIRATORY DISTRESS. PATIENT IS CLEAN/DRY. CALL LIGHT IN REACH. SAFETY PRECAUTIONS IN PLACE. ISOLATION PRECAUTIONS OBSERVED BY ALL STAFF.
[2021-06-01] MEDS ORDERED: MEROPENEM 1,000 MG VIAL IV ONE (03:49)
[2021-06-01] MEDS: MEROPENEM 1,000 MG in NACL 0.9% 100 ML IV SCH ×3 (04:17→20:59)
--- NOTE | 2021-06-01 05:05 | NUR ---
DUE MEDS GIVEN. NO S/S RESPIRATORY DISTRESS. NO C/O PAIN. PATIENT IS CLEAN/DRY. CALL LIGHT IN REACH. SAFETY PRECAUTIONS IN PLACE. ISOLATION PRECAUTIONS OBSERVED BY ALL STAFF.
[2021-06-01 06:43] LABS: BASOPHILS % (AUTO) 0.2 % (0.0-2.0); EOSINOPHILS # (AUTO) 0.2 K/uL (0-0.4); EOSINOPHILS % (AUTO) 1.7 % (0.0-4.0); HEMATOCRIT 41.1 % (36-52); HEMOGLOBIN 13.6 g/dL (12.0-18.0); LYMPHOCYTES % (AUTO) 7.3 % (20.5-51.1); MEAN CORPUSCULAR HEMOGLOBIN 29 pg (27-31); MEAN CORPUSCULAR HGB CONC 33 g/dL (33-37); MEAN CORPUSCULAR VOLUME 88.3 fL (80-94); MONOCYTES # (AUTO) 0.7 K/uL (0.8-1.0); MONOCYTES % (AUTO) 4.9 % (1.7-9.3); NEUTROPHILS # (AUTO) 12.2 K/uL (1.8-7.7); NEUTROPHILS % (AUTO) 85.9 % (42.2-75.2); PLATELET COUNT (AUTO) 238 K/uL (140-450); RED BLOOD CELL COUNT(AUTO) 4.65 MIL/uL (4.20-6.10); RED CELL DISTRIBUTION WIDTH 13.8 % (11.6-13.7); WHITE BLOOD COUNT (AUTO) 14.2 K/uL (4.8-10.8)
[2021-06-01] MEDS: ACETYLCYSTEINE 10% (100 MG/ML) 100 MG/ML VIAL INH PRN (07:05)
[2021-06-01] MEDS: ALBUTEROL SULFATE/IPRATROPIU 3 ML SOL IH PRN (07:05)
[2021-06-01 07:20] LABS: ALBUMIN 2.6 g/dL (3.4-5.0); ANION GAP 11.1 (8-16); CARBON DIOXIDE 27.3 mmol/L (21-32); CREATININE 0.5 mg/dL (0.6-1.3); MAGNESIUM 1.8 mg/dL (1.8-2.4); TOTAL BILIRUBIN 0.8 mg/dL (0.0-1.0)
--- NOTE | 2021-06-01 08:00 | NUR ---
NURSE REPORT REPORT OBTAINED FROM ARNOLDO NURSE CONSTANTIN AT 0715 AND THIS NURSE ASSUMED CARE OF PATIENT. RECEIVED PATIENT ASLEEP WITHOUT ANY SXS OF PAIN OR DISTRESS. IV NS AT 5 ML/HR INTO LEFT AC. ON TRACH TO VENTILATOR WITH FIO2 AT 40% AND TIDAL VOLUME OF 400 ML. VSS. AFEB. TELE MONITOR SHOWS SR 94.
--- NOTE | 2021-06-01 08:35 | NUR ---
DR. LESLIE GARCIA AT BEDSIDE REVIEWED ABG RESULTS NO CHANGES TO VENTILATOR SETTINGS STATES WHEN PATIENT IS STABLE PO2 GREATER THAN 60mmHg SATURATION GREATER THAN 88% CAN WEAN FIO2 BUT KEEP PEEP AT [id number]
[2021-06-01] MEDS: FAMOTIDINE 20 MG/2 ML VIAL IV SCH ×2 (09:00→20:59)
--- NOTE | 2021-06-01 09:05 | NUR ---
LATE ENTRY- ZOSYN DISCONTIUED AT 2310. NS 0.9% DISCONTINUED AT 2310.
[2021-06-01 10:18] LABS: POTASSIUM 2.4 mmol/L (3.5-5.1)
--- NOTE | 2021-06-01 10:27 | NUR ---
RESTING COMFORTABLY GOOD CHEST RISE AIRWAY PATENT
[2021-06-01] MEDS: DOCUSATE SODIUM 100 MG GELCAP PO SCH (10:42)
[2021-06-01] MEDS: KCL 20 MEQ/WATER INJ PREMIX 200 ML IV PRN (10:45)
--- NOTE | 2021-06-01 10:45 | NUR ---
NURSE NOTES K 2.4 AND GIVEN KCL 20 MeQ IVPB AT 1045.
--- NOTE | 2021-06-01 13:00 | NUR ---
NURSE NOTES VS TAKEN. TEMP 100.2. TO BE GIVEN TYLENOL 650 MG. BEING TESTED FOR SWALLOW EVAL. SPEECH THERAPIST STATED OKAY TO ADVANCE TO PUREED DIET. TELE MONITOR ST 126. STARTED ON IVPB MERREM.
[2021-06-01] MEDS: ACETAMINOPHEN 325 MG TAB PO PRN (13:21)
--- NOTE | 2021-06-01 13:36 | NUR ---
PT WAS SEEN FOR DYSPHAGIA. PT WAS ABLE TO SAFELY SWALLOW PUREE DIET WITH THIN LIQUID WITHOUT S/S OF ASPIRATION.BLUE DYE TEST WAS DONE. RECOMMENDATION PUREE DIET WITH THIN LIQUID
--- NOTE | 2021-06-01 14:22 | NUR ---
RESTING COMFORTABLY EQUAL CHEST RISE DEEP TRACHEAL SUCTIO FOR SMALL THIN PALE YELLOW SECRETIONS AIRWAY PATENT
--- NOTE | 2021-06-01 16:00 | NUR ---
NURSE CARE VSS. TEMP 99. TELE MONITOR ST 108.
--- NOTE | 2021-06-01 16:25 | NUR ---
ST CYDNEYAL WAS COMPLETED, NOTIFIED DR. KELLY TO [facility]ANCE DIET [place] [facility] [place]. KELLY APPROVED FOR DIET ORDER.
--- NOTE | 2021-06-01 18:00 | NUR ---
NURSE NOTES ON PUREED DIET AND MOTHER GAVE HIM MASK POTATOES. TOELRATED IT WELL. RT HAS BEEN MAKING ROUNDS THROUGHOUT THE DAY.
--- NOTE | 2021-06-01 19:15 | NUR ---
NURSE REPORT REPORT GIVEN TO NIGHT NURSE RICARDO TO ASSUME CARE. SBAR GIVEN AND ALL QUESTIONS ANSWERED.
--- NOTE | 2021-06-01 21:45 | NUR ---
RECEIVED PATIENT FROM COMPUTER TYPESETTER KEYLINER NURSE DUE TO CHANGE ASSIGNMENT. PATIENT IS A/A/O X4. ON TRACH TO VENT, VENT SETTING: VT 400, FIO2 40, PEEP 5, RATE 16, O2 SAT 95%. NO SIGN OF DISTRESS NOTED. SKIN WARM, DRY, NON DIAPHORETIC. IV ON LEFT AC 20G, INTACT AND PATENT, TKO. PATIENT IS INCONTINENT BOWEL AND BLADDER. DENIES ANY PAIN OR DISCOMFORT. ABLE TO MAKE NEED KNOWN. PLAN OF CARE DISCUSSED. PRECAUTION IN PLACE. CALL LIGHT WITHIN REACH. WILL CONTINUE TO MONITOR.
--- NOTE | 2021-06-01 21:45 | NUR ---
HANDOFF WITH LUPE BERTRAND. RICARDO TREVIZO RN
[2021-06-02] VITALS: BP 123/84
--- NOTE | 2021-06-02 | NUR ---
VITAL SIGNS WITHIN NORMAL LIMIT. ORAL SUCTION PROVIDED. PATIENT TOLERATED WELL. NO SIGN OF DISTRESS NOTED. PRECAUTION IN PLACE. CALL LIGHT WITHIN REACH. WILL CONTINUE TO MONITOR.
--- NOTE | 2021-06-02 02:00 | NUR ---
ROUND CHECK. PATIENT IS SLEEPING, CHEST RISE AND FALL, O2 SAT 98%, RR 16. NO SIGN OF DISTRESS NOTED. PRECAUTION IN PLACE. CALL LIGHT WITHIN REACH. WILL CONTINUE TO MONITOR.
[2021-06-02 04:00] VITALS: BP 138/97
--- NOTE | 2021-06-02 04:00 | NUR ---
VITAL SIGN WITHIN NORMAL LIMIT. CLEAN AND CHANGE PATIENT'S GOWN AND BED SHEETS. PATIENT TOLERATED WELL. NO SIGN OF RESPIRATORY DISTRESS NOTED. PRECAUTION IN PLACE. CALL LIGHT WITHIN REACH. WILL CONTINUE TO MONITOR.
[2021-06-02] MEDS: MEROPENEM 1,000 MG in NACL 0.9% 100 ML IV SCH ×3 (04:44→21:47)
--- NOTE | 2021-06-02 06:00 | NUR ---
ROUND CHECK. PATIENT IS SLEEPING, CHEST RISE AND FALL, NO SIGN OF RESPIRATORY DISTRESS NOTED. PRECAUTION IN PLACE. CALL LIGHT WITHIN REACH. WILL CONTINUE TO MONITOR.
--- NOTE | 2021-06-02 07:35 | NUR ---
ENDORSED PATIENT TO AM NURSE FOR CONTINUITY OF CARE. PATIENT IS STABLE.
--- NOTE | 2021-06-02 08:13 | NUR ---
RECEIVED PT FROM PM RN. PT RESTING IN BED, ASLEEP, LOOKS COMFORTABLE. NO SIGNS OF RESP DISTRESS NOTICED. CHEST RISING SYMMETRICALLY. BED AT LOWEST, CALL LIGHT AT REACH, NS @ KVO. WILL CONT MONITORING
[2021-06-02 08:20] VITALS: BP 149/104
[2021-06-02] MEDS: KCL 20 MEQ/WATER INJ PREMIX 200 ML IV PRN ×2 (10:00→14:50)
[2021-06-02] MEDS: DOCUSATE SODIUM 100 MG GELCAP PO SCH (10:00)
[2021-06-02] MEDS: FAMOTIDINE 20 MG/2 ML VIAL IV SCH ×2 (10:01→21:48)
--- NOTE | 2021-06-02 11:10 | NUR ---
SBT TRIAL STARTED ON CPAP 5 PS 12, WILL CONTINUE TO MONITOR.
[2021-06-02 12:00] VITALS: BP 129/91
--- NOTE | 2021-06-02 15:19 | NUR ---
06/02/21 RD FOLLOW UP COMPLETED PLEASE REFER TO NUTRITION ASSESSMENT UNDER CARE ACTIVITY FOR ESTIMATED NUTRITIONAL NEEDS. 1. CONTINUE PUREE DIET 2. CONTINUE ENSURE TID 3. RECOMMENDED A REPEAT SWALLOW EVALUATION WHEN PT IS OFF VENTILATOR 4. RD TO FOLLOW-UP 3-5 DAYS, MODERATE RISK TL BEARD, RD
[2021-06-02 16:20] VITALS: BP 129/91
--- NOTE | 2021-06-02 17:25 | NUR ---
FOUND VENT SETTINGS CHANGED TO PS 15. PT STATED HE WAS TIRED AND WOULD LIKE A BREAK FROM CPAP. PLACED BACK ON AC MODE, NO RESPIRATORY DISTRESS NOTED. TOLERATED SBT TRIAL WELL.
--- NOTE | 2021-06-02 19:12 | NUR ---
PT REMAINED STABLE THROUGH SHIFT, ONLY SIGNIFICANT CHANGES WAS POTASSIUM 2.4 GAVE PATIENT 2 BAGS OF K RIDER PRN. NO OTHER COMPLAINTS. PT HEART RATE DOES GO UP WHEN HE IS GETTING SUCTIONED, BUT GOES BACK DOWN. ALL NEEDS MET FOR TODAY. WILL ENDORSE REPORT TO PM RN.
[2021-06-02 20:00] VITALS: BP 129/93
[2021-06-03] VITALS: BP 126/101
[2021-06-03 04:00] VITALS: BP 134/100
[2021-06-03] MEDS: MEROPENEM 1,000 MG in NACL 0.9% 100 ML IV SCH ×3 (05:22→21:05)
--- NOTE | 2021-06-03 07:22 | NUR ---
HANDOFF WITH LUPE MOONEY. RICARDO TREVIZO RN
--- NOTE | 2021-06-03 07:23 | NUR ---
Received report from pm nurse Tony. Pt resting in bed, awake, no signs of distress, respirations even & nonlabored on trach to vent (AC/VC FiO2 40%). Call light within reach.
[2021-06-03 08:00] VITALS: BP 130/60
[2021-06-03] MEDS: FAMOTIDINE 20 MG/2 ML VIAL IV SCH ×2 (08:42→21:18)
--- NOTE | 2021-06-03 09:30 | NUR ---
STARTED SBT TRIAL ON CPAP 5 PS 12, TOLERATING WELL. WILL CONTINUE TO MONITOR.
--- NOTE | 2021-06-03 10:00 | NUR ---
Patient's mother at bedside visiting patient. Visitor wearing PPE: gown and gloves. Patient resting in bed, respirations even & nonlabored with trach to vent.
[2021-06-03 12:00] VITALS: BP 142/85
[2021-06-03 16:00] VITALS: BP 130/92
--- NOTE | 2021-06-03 16:25 | NUR ---
SBT TRIAL ENDED, ABLE TO WEAN TO A PS 10. PT TOLERATED WELL BUT BEGAN TO TIRE OUT AND BECOME SLIGHTLY LABORED. GESTURED HE WAS FEELING TIRED AND WAS READY TO BE PLACED BACK ON AC MODE. NO FURTHER RESPIRATORY DISTRESS NOTED.
[2021-06-03 20:00] VITALS: BP 121/80
[2021-06-03] MEDS: ACETAMINOPHEN 325 MG TAB PO PRN (21:18)
[2021-06-04] VITALS: BP 128/93
[2021-06-04 04:00] VITALS: BP 136/95
[2021-06-04] MEDS: MEROPENEM 1,000 MG in NACL 0.9% 100 ML IV SCH ×3 (05:28→21:06)
[2021-06-04] MEDS: ACETAMINOPHEN 325 MG TAB PO PRN (07:05)
--- NOTE | 2021-06-04 07:26 | NUR ---
HANDOFF WITH LUPE BENAVIDEZ. RICARDO TREVIZO RN
--- NOTE | 2021-06-04 07:30 | NUR ---
RECEIVED PATIENT FROM ENGINE PILOT NURSE FOR CONTINUITY OF CARE. PATIENT IS A/A/O X4. ON TRACH TO VENT. O2 SAT 98%. NO SIGN OF DISTRESS NOTED. SKIN WARM, DRY, NON DIAPHORETIC. IV SITE ON RFA 22G, INTACT AND PATENT, TKO. DENIES ANY PAIN OR DISCOMFORT. ABLE TO MAKE NEED KNOWN. PLAN OF CARE DISCUSSED. SAFETY PRECAUTION IN PLACE. CALL LIGHT WITHIN REACH. WILL CONTINUE TO MONITOR.
[2021-06-04 08:00] VITALS: BP 128/84
[2021-06-04] MEDS: DOCUSATE SODIUM 100 MG GELCAP PO SCH ×2 (09:00→09:07)
[2021-06-04] MEDS: FAMOTIDINE 20 MG/2 ML VIAL IV SCH ×2 (09:07→21:06)
--- NOTE | 2021-06-04 09:10 | NUR ---
SBT TRIAL STARTED ON CPAP 5 PS 10, TOLERATING WELL. WILL CONTINUE TO MONITOR.
--- NOTE | 2021-06-04 09:21 | NUR ---
ALL SCHEDULED MEDS GIVEN. PT IS STABLE. NO RESPIRATORY DISTRESS NOTED. WILL CONTINUE TO MONITOR.
--- NOTE | 2021-06-04 09:45 | NUR ---
ALL SCHEDULED MEDS GIVEN. PT IS STABLE. NO DISTRESS NOTED. WILL CONTINUE TO MONITOR.
--- NOTE | 2021-06-04 10:00 | NUR ---
TITRATED TO PS 8, WILL COLLECT BLOOD GAS IN AN HOUR AND ATTEMPT TO TAKE PT OFF THE VENT AND PLACE ON T-BAR.
--- NOTE | 2021-06-04 11:30 | NUR ---
STARTED PT ON T-BAR TRIAL 40%, PER DR ALVARADO'S ORDER. TOLERATING WELL, GESTURES HE IS IN NO RESPIRATORY DISTRESS AND IS COMFORTABLE. SPO2 93%, RN NOTIFIED.
--- NOTE | 2021-06-04 11:32 | NUR ---
NOTIFIED BY RT THAT PATIENT IS NOW ON TBAR. PATIENT O2 SATURATION AT 95%. NO DISTRESS NOTED. WILL CONTINUE TO MONITOR.
[2021-06-04 12:00] VITALS: BP 123/89
--- NOTE | 2021-06-04 13:10 | NUR ---
ALL SCHEDULED MEDS GIVEN. PT IS STABLE. NO DISTRESS NOTED. WILL CONTINUE TO MONITOR.
--- NOTE | 2021-06-04 15:55 | NUR ---
PATIENT REQUESTED TO BE SUCTIONED. ADMINISTERED 100% O2 AND SUCTIONED PATIENT. PT TOLERATED PROCEDURE WELL. NO S/S OF DISTRESS NOTED. WILL CONTINUE TO MONITOR.
[2021-06-04 16:00] VITALS: BP 133/89
--- NOTE | 2021-06-04 17:25 | NUR ---
CHECKED ON PATIENT. PATIENT IS STABLE. NO DISTRESS NOTED. WILL CONTINUE TO MONITOR.
--- NOTE | 2021-06-04 19:25 | NUR ---
ENDORSED TO DRYWALL STRIPPER HELPER NURSE FOR CONTINUITY OF CARE. PT IS STABLE.
[2021-06-04 20:00] VITALS: BP 138/96
[2021-06-05] VITALS (7 sets, daily range): BP systolic 83–161; BP diastolic 51–108
[2021-06-05] MEDS: MEROPENEM 1,000 MG in NACL 0.9% 100 ML IV SCH ×3 (04:33→22:29)
--- NOTE | 2021-06-05 07:36 | NUR ---
RECEIVED PATIENT FROM FUNDRAISER NURSE FOR CONTINUITY OF CARE. PATIENT IS A/A/O X4, UNABLE TO VERBALIZE NEEDS BUT CAN POINT THEM OUT. TRACH TO T BAR 40% FIO2. NO SIGN OF DISTRESS NOTED. SKIN WARM, DRY, NON DIAPHORETIC. IV SITE ON RFA 22G, INTACT AND PATENT, TKO. DENIES ANY PAIN OR DISCOMFORT. PLAN OF CARE DISCUSSED. SAFETY PRECAUTION IN PLACE. CALL LIGHT WITHIN REACH. WILL CONTINUE TO MONITOR.
--- NOTE | 2021-06-05 07:37 | NUR ---
HANDOFF WITH LUPE BENAVIDEZ. RICARDO TREVIZO RN
--- NOTE | 2021-06-05 08:25 | NUR ---
ENDORSED TO LUPE LIPSCOMB FOR CONTINUITY OF CARE. PT IS STABLE.
--- NOTE | 2021-06-05 08:30 | NUR ---
pt resting. no SOB noted, with trach to T-bar with 40 L oxygen, o2 sats at 92%. no signs of pain at this time. call light within reach. will reposition pt every 2Hrs.
[2021-06-05] MEDS: DOCUSATE SODIUM 100 MG GELCAP PO SCH (09:00)
[2021-06-05] MEDS: FAMOTIDINE 20 MG/2 ML VIAL IV SCH ×2 (09:45→22:30)
--- NOTE | 2021-06-05 10:00 | NUR ---
RESPIRATORY THERAPIST TITRATED OXYGEN DOWN TO 30 LITERS, PT'S O2 SATURATION IS AT 96%. WILL CONTINUE TO MONITOR PT.
--- NOTE | 2021-06-05 11:00 | NUR ---
PT STILL DROWSY BUT AROUSABLE, V/S STABLE. PT'S MOTHER AT THE BEDSIDE, STATED THAT PT WAS NOT LIKE THIS YESTERDAY AND WAS MORE ALERT. DR. HUGO AND DR. JEAN NOTIFIED OF PT'S CHANGE OF CONDITION AND WENT TO PT'S BEDSIDE TO ASSESS PT. BOTH DOCTORS EXPLAINED TO PT'S MOTHER THE PT'S CONDITION AND THE PLAN TO GO TO [facility] ([facility]),PT'S MOTHER MIGUEL VERBALIZED UNDERSTANDING.
--- NOTE | 2021-06-05 12:00 | NUR ---
RECEIVED REPORT FROM RN NURSE RUEL PT IS ON 35LPM T BAR AT 97% , INTACT IV ON THE RIGHT FOREARM TKO AND SKIN INTACT. ON PUREE DIET. CONTACT PRECAUTION FOR MDRO SPUTUM. SAFETY MEASURES IN PLACE AND CALL LIGHT WITHIN REACH. WILL CONTINUE TO MONITOR.
--- NOTE | 2021-06-05 12:16 | NUR ---
ADMINISTERED SCHEDULED MEDICATION MEROPENEM 1000 MG AT 200 MLS/HR INFUSING WELL NO SOB NOTED. WILL CONTINUE TO MONITOR.
[2021-06-05] MEDS ORDERED: MERO1PIG IV (12:27)
[2021-06-05] MEDS ORDERED: ALBU3SOL83 IH (12:27)
[2021-06-05] MEDS ORDERED: ACET-1182 PO (12:27)
[2021-06-05] MEDS ORDERED: DOCU-299 PO (12:27)
[2021-06-05] MEDS ORDERED: MUC104 INH (12:27)
[2021-06-05] MEDS ORDERED: ONDA2SOL45 IVP (12:27)
[2021-06-05] MEDS ORDERED: PEP20I IV (12:27)
--- NOTE | 2021-06-05 12:49 | NUR ---
RECIEVED PT ON T-BAR 40% WITH SPO2 OF 98% NO RESP DISTRESS NOTED. PT REMAINED ON T-BAR. RN AWARE
--- NOTE | 2021-06-05 15:00 | NUR ---
MADE ROUNDS AT THIS TIME PATIENT IS ON TRACH TO T BAR AT 40% SATURATING AT 98%. PATIENT IS RESTING.
--- NOTE | 2021-06-05 16:50 | NUR ---
PATIENT DESATURATED FROM 55-68% AND CALLED RAPID RESPONSE. PATIENT WAS PLACE ON TRACH TO VENT. BP 88/49 NJ 137 FIO2 100% SATURATING AT 76%.
--- NOTE | 2021-06-05 17:00 | NUR ---
PATIENT TRACH TO VENT FIO2 100% SATURATING AT 96% BP 102/73 IL 128.
--- NOTE | 2021-06-05 17:10 | NUR ---
PATIENT STILL ON TRACH TO VENT AC/PC FIO2 80%, PEEP 5 RATE 16 PINSP 25 OXYGEN SATURATION 96% AND PATIENT IS STABLE. CARL HILLIARD MADE AWARE AND MOM AT THE BEDSIDE.
--- NOTE | 2021-06-05 19:15 | NUR ---
ENDORSED TO NIGHT NURSE FOR CONTINUITY OF CARE. PT IS STABLE.
--- NOTE | 2021-06-05 20:51 | NUR ---
Assumed care. He is sleeping and in no acute distress respiratory or otherwise. He is on trach to vent. Earlier he was on T bar. Secondary to respiratory decline, he was then placed on Vent. Mother Paulette has been given an update. She is aware that he was placed on the ventilator. He was on an ICU bed. That has been changed out. He tolerated the move without an issue. Will continue to monitor.
--- NOTE | 2021-06-05 23:43 | NUR ---
2039 Dr. Mack contacted. Current BP = 83/51, MAP = 81, HR = 99; O2 sat = 95%. Awaiting call return.
[2021-06-06] VITALS (7 sets, daily range): BP systolic 100–153; BP diastolic 67–99
--- NOTE | 2021-06-06 00:01 | NUR ---
BP = 83/51 MAP = 61, HR 99, O2 sat = 95%. Dr. Mahan contacted via the exchange. Awaiting call return.
--- NOTE | 2021-06-06 00:16 | NUR ---
Received a call return from Dr. Mahan. Received new orders,. Albumin 25% 100 ml q 8 hours x 3 doses.
[2021-06-06] MEDS ORDERED: ALBUMIN HUMAN 25% 100 ML IV ONE (00:36)
[2021-06-06] MEDS: ALBUMIN HUMAN 25% 100 ML IV SCH ×4 (00:44→20:49)
[2021-06-06] MEDS: MEROPENEM 1,000 MG in NACL 0.9% 100 ML IV SCH ×3 (05:30→20:50)
[2021-06-06 06:44] LABS: BASOPHILS % (AUTO) 0.2 % (0.0-2.0); EOSINOPHILS % (AUTO) 0.3 % (0.0-4.0); HEMOGLOBIN 11.8 g/dL (12.0-18.0); LYMPHOCYTES # (AUTO) 0.9 K/uL (2.0-11.5); MEAN CORPUSCULAR HEMOGLOBIN 29 pg (27-31); MEAN CORPUSCULAR HGB CONC 33 g/dL (33-37); MEAN CORPUSCULAR VOLUME 89.3 fL (80-94); MONOCYTES # (AUTO) 0.7 K/uL (0.8-1.0); MONOCYTES % (AUTO) 6.6 % (1.7-9.3); NEUTROPHILS # (AUTO) 8.4 K/uL (1.8-7.7); PLATELET COUNT (AUTO) 316 K/uL (140-450); RED BLOOD CELL COUNT(AUTO) 4.03 MIL/uL (4.20-6.10); RED CELL DISTRIBUTION WIDTH 13.9 % (11.6-13.7)
[2021-06-06 06:49] LABS: ALBUMIN 2.9 g/dL (3.4-5.0); ANION GAP 16.9 (8-16); CARBON DIOXIDE 24.5 mmol/L (21-32); CREATININE 0.7 mg/dL (0.6-1.3); TOTAL BILIRUBIN 0.7 mg/dL (0.0-1.0)
--- NOTE | 2021-06-06 07:11 | NUR ---
At 2330 BP = 83/[address] Ashutosh Gibbs was contacted. Received new orders. Albumin 25% q8 hrs x 3 dose. SBP is currently above 100. Bed bath given. He is incontinent of bowels and bladder. Care has been endorsed to AM RN. Recommended getting some cream for the redness in the groin area 2/2 incontinence.
--- NOTE | 2021-06-06 07:18 | NUR ---
RECEIVED REPORT FROM NIGHT NURSE PATIENT IS TRACH TO VENT AC/PC FIO2 70, PEEP 5 RATE 16 P.INSP 22 SATURATING AT 94%. WITH 2X BOWEL MOVEMENT,IV INTACT ON RIGHT FA TKO. SAFETY MEASURES IN PLACE AND CALL LIGHT WITHIN REACH. WILL CONTINUE TO MONITOR.
[2021-06-06 07:26] LABS: POTASSIUM 2.4 mmol/L (3.5-5.1)
[2021-06-06] MEDS: FAMOTIDINE 20 MG/2 ML VIAL IV SCH ×2 (08:23→20:49)
[2021-06-06] MEDS: KCL 20 MEQ/WATER INJ PREMIX 200 ML IV PRN (08:25)
[2021-06-06 08:28] LABS: NEUTROPHILS % (AUTO) 84.4 % (42.2-75.2)
[2021-06-06 08:29] LABS: LYMPHOCYTES % (AUTO) 8.5 % (20.5-51.1)
[2021-06-06] MEDS: DOCUSATE SODIUM 100 MG GELCAP PO SCH (08:44)
--- NOTE | 2021-06-06 08:45 | NUR ---
ADMINISTERED SCHEDULED MEDICATION, CHECK VITAL SIGNS BP 117/76 VA 96 AND OXYGEN SATURATION AT 97%. TRACH TO VENT FIO2 50 P.INSP 18 PEEP 5 RATE 16. DOCUSATE SODIUM HELD PATIENT IS TRACH TO VENT. POTASSIUM CHLORIDE 20 MEQ PREMIX GIVEN PT POTASSIUM 2.4 DR WHELAN AWARE. WILL CONTINUE TO MONITOR.
--- NOTE | 2021-06-06 10:50 | NUR ---
ADMINISTERED ADDITIONAL 40 MEQ POTASSIUM CHLORIDE PER DOCTORS ORDER.DR WHELAN AWARE
[2021-06-06] MEDS ORDERED: POTASSIUM CHLORIDE 40 MEQ, LIDOCAINE MPF 1% 25 MG in NACL 0.9% 250 ML IV SCH (11:00)
[2021-06-06] MEDS: DEXT 5% / NACL 0.45% 1,000 ML IV SCH (11:38)
--- NOTE | 2021-06-06 11:44 | NUR ---
IV FLUIDS 54 1/2 NS AT 75 MLS/HR STARTED PER DR ORDER INFUSING WELL AND PATIENT ON NPO DON NOT FEED PT UNTIL SPEECH THERAPIST SEEN HIM PT IS FOR SWALLOW EVAL.
--- NOTE | 2021-06-06 13:12 | NUR ---
IV ANTIBIOTIC MEROPENEM 1000 MG AT 200 MLS/HR GIVEN INFUSING WELL. PT IS AWAKE AND CALM.NO DISTRESS NOTED. SUCTION DONE NEEDED
--- NOTE | 2021-06-06 14:00 | NUR ---
PATIENT ON CPAP AT THIE TIME FIO2 40 PRESSURE SUPPORT 12 AND SATURATING AT 90%.PT IS ALERT AND AWAKE NO DISTRESS NOTED.
--- NOTE | 2021-06-06 14:17 | NUR ---
ADMINISTERED SCHEDULED MEDICATION INFUSING WELL PT STILL ON CPAP.
[2021-06-06] MEDS ORDERED: Z-GUARD PASTE TP PRN (16:55)
--- NOTE | 2021-06-06 17:00 | NUR ---
Z GUARD APPLIED ON THE SACRAL AND PERINEAL AREA DUE TO INCONTINENT DERMATITIS.
[2021-06-06 17:58] LABS: ANION GAP 15.2 (8-16); CARBON DIOXIDE 25.6 mmol/L (21-32); CREATININE 0.6 mg/dL (0.6-1.3)
[2021-06-06 18:01] LABS: POTASSIUM 2.8 mmol/L (3.5-5.1)
[2021-06-06] MEDS ORDERED: KCL 20 MEQ/WATER INJ PREMIX 100 ML IV SCH (18:35)
--- NOTE | 2021-06-06 18:35 | NUR ---
RECEIVED CRITICAL VALUE FROM LAB PATIENT POTASSIUM 2.[address] WHELAN AWARE AND ORDERED 60 MEQ POTASSIUM CHLORIDE.
--- NOTE | 2021-06-06 18:55 | NUR ---
K RIDER 20 MEQ GIVEN INFUSING WELL.
--- NOTE | 2021-06-06 19:20 | NUR ---
ENDORSED TO NIGHT NURSE FOR CONTINUITY OF CARE. PT STABLE
[2021-06-06] MEDS ORDERED: KCL 20 MEQ/WATER INJ PREMIX 200 ML IV SCH (20:35)
[2021-06-07] VITALS: BP 132/85
[2021-06-07 04:00] VITALS: BP 107/74
[2021-06-07] MEDS: MEROPENEM 1,000 MG in NACL 0.9% 100 ML IV SCH ×3 (05:07→22:08)
[2021-06-07] MEDS: DEXT 5% / NACL 0.45% 1,000 ML IV SCH ×2 (06:22→14:09)
--- NOTE | 2021-06-07 07:30 | NUR ---
RECEIVED REPORT FROM NIGHT NURSE. PT IS AOX4. PATIENT IS TRACH TO VENT AC/PC FIO2 40, PEEP 5 RATE 16 P. O2 SATURATING AT 96%. SKIN IS WARM, DRY, AND INTACT. IV INTACT ON RIGHT FA 22 G INFUSING FLUIDS WELL. CURRENTLY NPO AND WAITING FOR SWALLOW EVAL TO BE DONE. PLAN OF CARE DISCUSSED. SAFETY MEASURES IN PLACE AND CALL LIGHT WITHIN REACH. WILL CONTINUE TO MONITOR.
[2021-06-07 08:00] VITALS: BP 130/93
[2021-06-07] MEDS: FAMOTIDINE 20 MG/2 ML VIAL IV SCH ×2 (08:11→22:06)
[2021-06-07] MEDS: DOCUSATE SODIUM 100 MG GELCAP PO SCH (08:12)
--- NOTE | 2021-06-07 09:00 | NUR ---
ALL SCHEDULED MEDS GIVEN. PT IS STABLE. NO DISTRESS NOTED. WILL CONTINUE TO MONITOR.
[2021-06-07 12:00] VITALS: BP 132/93
--- NOTE | 2021-06-07 12:40 | NUR ---
DR. HUGO AT PATIENT'S BEDSIDE. MD PLACED PATIENT ON CPAP TRIALS. FIO2% IS AT 40 WITH O2 SATURATION AT 96%
--- NOTE | 2021-06-07 13:00 | NUR ---
Received call that had placed PT on CPAP PS 15, PEEP 5, FIO2 40%. Will monitor pt during weaning trial.
--- NOTE | 2021-06-07 13:23 | NUR ---
SPOKE TO LISSETTE ANTONIO. NEEDED INFORMATION ON PATIENT SINCE THEY ARE TRYING TO FIND A FACILITY FOR THE PATIENT. HE WILL SPEAK TO THE TRANSPORT RN TO INFORM THEM REGARDING PLACEMENT.
--- NOTE | 2021-06-07 14:51 | NUR ---
SWALLOW EVAL COMPLETED. SPEECH THERAPIST RECOMMENDED NPO TO REDUCE ASPIRATION RISK.
--- NOTE | 2021-06-07 14:59 | NUR ---
ST EVALUATION WAS DONE. PT WAS ASPIRATING DURING THE BLUE DYE TEST. HIGH RISK OF ASPIRATION. RECOMMENDATION NOTHING BY MOUTH
[2021-06-07] MEDS: KCL 20 MEQ/WATER INJ PREMIX 200 ML IV PRN (15:03)
[2021-06-07 16:00] VITALS: BP 127/96
--- NOTE | 2021-06-07 17:08 | NUR ---
CHECKED ON PATIENT. PT IS STABLE. NO S/S OF DISTRESS NOTED. WILL CONTINUE TO MONITOR.
--- NOTE | 2021-06-07 19:40 | NUR ---
ENDORSED TO PEBBLE MILL OPERATOR NURSE FOR CONTINUITY OF CARE. PT IS STABLE.
[2021-06-07 20:00] VITALS: BP 124/93
[2021-06-08] VITALS: BP 128/96
[2021-06-08 04:00] VITALS: BP 124/93
[2021-06-08] MEDS: DEXT 5% / NACL 0.45% 1,000 ML IV SCH ×2 (06:00→16:40)
[2021-06-08] MEDS: MEROPENEM 1,000 MG in NACL 0.9% 100 ML IV SCH ×3 (06:12→20:34)
--- NOTE | 2021-06-08 07:51 | NUR ---
RECEIVED REPORT FROM NIGHT NURSE PT IS TRACH TO VENT, FIO2 40%. NPO, PT FAILED SWALLOW TEST. ALERT ORIENTED X 4 SINUS RHYTHM. IV ACCESS ON RIGHT FOREARM 22 GAUGE. POTASSIUM WAS LOW LAST NIGHT REPLACED VIA IV. PT IS IN THE BED AT THE MOMENT DENIES PAIN AND DISCOMFORT.POC DISCUSSED WILL CONTINUE TO FOLLOW.
[2021-06-08 08:00] VITALS: BP 136/95
--- NOTE | 2021-06-08 08:05 | NUR ---
RECEIVED ON A PhiltroSCAPE R860 VENTILATOR PLUGGED INTO RED OUTLET TOLERATING WELL WITHOUT ADVERSE REACTIONS NOTED TO A PORTEX DCT #8 AIRWAY SECURED WITH A SHON TRACH TIE CUFF PRESSURE CHECKED NOTED AMBU BAG NOTED AT BEDSIDE RESTING COMFORTABLY NO APPARENT DISTRESS NOTED GOOD CHEST RISE DEEP TRACHEAL SUCTION GOR MODERATE THICK GREEN SECRETIONS AIRWAY PATENT
[2021-06-08] MEDS: FAMOTIDINE 20 MG/2 ML VIAL IV SCH ×2 (08:38→20:34)
[2021-06-08] MEDS: DOCUSATE SODIUM 100 MG GELCAP PO SCH (08:44)
--- NOTE | 2021-06-08 08:44 | NUR ---
ADMINISTERED IV MEDICATIONS HELD PO MEDS PT IS NPO. SUCTIONED PT, NO SOB NOTED.
--- NOTE | 2021-06-08 10:00 | NUR ---
PT IS IN THE BED NO SOB NOTED, PT IS SLEEPING
--- NOTE | 2021-06-08 10:10 | NUR ---
NO DISTRESS NOTED EQUAL CHEST RISE DEEP TRACHEAL SUCTION FOR LARGE SEMI THICK YELLOW/GREEN SECRETIONS AIRWAY PATENT
[2021-06-08 12:00] VITALS: BP 124/69
--- NOTE | 2021-06-08 13:55 | NUR ---
STABLE NO SOB NOTED GOOD CHEST RISE DEEP TRACHEAL SUCTION FIR LARGE SEMI THICK YELLOW SECRETIONS AIRWAY PATENT
--- NOTE | 2021-06-08 14:00 | NUR ---
HOURLY ROUNDS DONE, PT IS IN THE BED, ORAL CARE GIVEN AND SUCTIONED THE PT. HOB IS ELEVATED, CALL LIGHT IS IN REACH, ALL SAFETY MEASURES ARE IN PLACED. WILL CONTINUE TO MONITOR PT.
[2021-06-08 16:00] VITALS: BP 129/98
[2021-06-08 20:30] VITALS: BP 132/85
[2021-06-09 00:15] VITALS: BP 135/87
[2021-06-09 04:20] VITALS: BP 132/75
[2021-06-09] MEDS: DEXT 5% / NACL 0.45% 1,000 ML IV SCH (05:37)
[2021-06-09] MEDS: MEROPENEM 1,000 MG in NACL 0.9% 100 ML IV SCH ×2 (05:37→13:52)
--- NOTE | 2021-06-09 07:15 | NUR ---
REPORT TO AM RN. PT SLEPT WELL MOST OF SHIFT AFTER 12 MIDNIGHT. ON ROUNDS AND VS ASSESSMENT, PT VS WNL. ALL SHIFT RESP REG NON-LABORED, PO2 THIS AM WAS 93%. RR 16 W/O DISTRESS. PT SPOUSE CALLED INFORMED HER OF PT STABLE STATUS.
[2021-06-09 08:00] VITALS: BP 138/90
--- NOTE | 2021-06-09 08:05 | NUR ---
RECEIVED REPORT FROM POWDER GUARD NURSE. PATIENT SUPINE IN BED, HOB 30DEGREES, AWAKE AND ALERT, ABLE TO MAKE NEEDS KNOWN BY MOUTHING AND POINTING. BREATHING EVEN AND UNLABORED NO SIGNS OF ACUTE DISTRESS TRACH TO VENT ACVC 35% FIO2, VT 400, RR 16, PEEP 5, SPO2 93%. RFA 22 G INFUSING D5 0.45NS @ 75ML/HR. BED IN LOW POSITION, CALL LIGHT WITHIN REACH, SAFETY MEASURES IN PLACE.
[2021-06-09] MEDS: ACETYLCYSTEINE 10% (100 MG/ML) 100 MG/ML VIAL INH PRN (08:06)
[2021-06-09] MEDS: ALBUTEROL SULFATE/IPRATROPIU 3 ML SOL IH PRN (08:06)
[2021-06-09 08:08] VITALS: BP 138/96
--- NOTE | 2021-06-09 08:08 | NUR ---
RECEIVED ON A G.I. JavaSCAPE R860 VENTILATOR PLUGGED INTO RED OUTLET TOLERATING WELL WITHOUT ADVERSE REACTIONS NOTED TO A PORTEX DCT #8 AIRWAY SECURED WITH A SHON TRACH TIE CUFF PRESSURE CHECKED NOTED AMBU BAG NOTED AT BEDSIDE LOC RESTING COMFORTABLY GOOD CHEST RISE DEEP TRACHEAL SUCTION FOR MODERATE THICK YELLOW/GREEN SECRETIONS AIRWAY PATENT HHN PRN THERAPY GIVEN NOTED
[2021-06-09] MEDS: FAMOTIDINE 20 MG/2 ML VIAL IV SCH (09:46)
[2021-06-09] MEDS: DOCUSATE SODIUM 100 MG GELCAP PO SCH (09:46)
--- NOTE | 2021-06-09 11:27 | NUR ---
STABLE EQUAL CHEST RISE DEEP TRACHEAL SUCTION FOR MODERATE THIN PALE YELLOW WITH GREEN TINGE SECRETIONS AIRWAY PATENT
[2021-06-09 12:00] VITALS: BP 132/85
[2021-06-09 12:50] LABS: BASOPHILS # (AUTO) 0.1 K/uL (0.00-0.22); BASOPHILS % (AUTO) 0.5 % (0.0-2.0); EOSINOPHILS # (AUTO) 0.1 K/uL (0-0.4); HEMATOCRIT 40.3 % (36-52); HEMOGLOBIN 13.2 g/dL (12.0-18.0); LYMPHOCYTES # (AUTO) 0.9 K/uL (2.0-11.5); LYMPHOCYTES % (AUTO) 6.4 % (20.5-51.1); MEAN CORPUSCULAR HEMOGLOBIN 29 pg (27-31); MEAN CORPUSCULAR HGB CONC 33 g/dL (33-37); MEAN CORPUSCULAR VOLUME 87.6 fL (80-94); MONOCYTES # (AUTO) 0.8 K/uL (0.8-1.0); MONOCYTES % (AUTO) 5.5 % (1.7-9.3); NEUTROPHILS # (AUTO) 11.9 K/uL (1.8-7.7); NEUTROPHILS % (AUTO) 86.6 % (42.2-75.2); PLATELET COUNT (AUTO) 327 K/uL (140-450); RED CELL DISTRIBUTION WIDTH 13.9 % (11.6-13.7); WHITE BLOOD COUNT (AUTO) 13.7 K/uL (4.8-10.8)
[2021-06-09 13:32] LABS: ANION GAP 14.3 (8-16); CREATININE 0.7 mg/dL (0.6-1.3)
--- NOTE | 2021-06-09 13:53 | NUR ---
ADMINISTERED SCHEDULED MERREM DOSE PER MD ORDER. MED EDUCATION PROVIDED, PATIENT VERBALIZES UNDERSTANDING. PATIENT AWAKE AND ALERT, BREATHING EVEN AND UNLABORED, NO SIGNS OF ACUTE DISTRESS NOTED ON DOCUMENTED VENT SETTINGS. PATIENT MOTHER AT BEDSIDE WITH PATIENT AT THIS TIME, ALL QUESTIONS ANSWERED.
[2021-06-09 13:55] LABS: POTASSIUM 2.3 mmol/L (3.5-5.1)
--- NOTE | 2021-06-09 14:18 | NUR ---
STABLE GOOD CHEST RISE DEEP TRACHEAL SUCTION FOR MODERATE THIN YELLOW/GREEN SECRETIONS AIRWAY PATENT
[2021-06-09] MEDS: KCL 20 MEQ/WATER INJ PREMIX 200 ML IV PRN (14:43)
[2021-06-09 16:00] VITALS: BP 128/98
--- NOTE | 2021-06-09 18:23 | NUR ---
REPORT GIVEN TO Rosa LIRIANO. PATIENT DC AT THIS TIME, ALL VITALS STABLE, PATIENT STABLE, RELEASED WITH IV SL FOR AT HOME IV MEDICATIONS. SKIN INTACT.
== END 2021-06-09 19:48 | disposition home health service (06) | DRG 870 ==
LOC: MED 14:44 → EEVIPCON 18:52 → MMU 18:52 → MIC 21:20 → MMU 05-28 12:00
PROVIDERS: ADMIT Internal Medicine; ATTEND Internal Medicine
PROC: 5A1955Z Respiratory Ventilation, Greater than 96 Consecutive Hours (ICD-10-PCS; principal; 2021-05-27)
DX: A41.9 Sepsis, unspecified organism (principal); J96.21 Acute and chronic respiratory failure with hypoxia; J15.6 Pneumonia due to other Gram-negative bacteria; E87.3 Alkalosis; E44.0 Moderate protein-calorie malnutrition; Z16.12 Extended spectrum beta lactamase (ESBL) resistance; G71.00 Muscular dystrophy, unspecified; I10 Essential (primary) hypertension; R65.20 Severe sepsis without septic shock; R13.10 Dysphagia, unspecified; Z20.822 Contact with and (suspected) exposure to COVID-19; Z93.1 Gastrostomy status; Z93.0 Tracheostomy status; Z68.23 Body mass index [BMI] 23.0-23.9, adult
CPT/HCPCS: 36415; 71045; 71275; 80048; 80053; 80305; 82550; 82553; 83036; 83605; 83735; 83880; 84484; 85025; 85379; 87040; 87070; 87081; 87086; 87205; 89220; 92610; 93005; 94002; 94003; 94640; 94667; 96361; 96365; 99291; J1650; J2001; J2185; J2405; J2543; J3475; J3480; J3490; J7030; J7060; J7612; P9046; Q0092; Q9967; U0003

== ENCOUNTER 2021-12-26 11:02 | Inpatient (IN) | payer OTHER, SELFPAY ==
[~2021-12-26] VITALS: Ht 154.9 cm; Wt 45.4 kg
[2021-12-26] VITALS (10 sets, daily range): BP systolic 100–143; BP diastolic 46–98
--- NOTE | 2021-12-26 07:30 | NUR ---
REPORT GIVEN TO RESAW TAILER FOR CONTINUITY OF CARE Addendum: 12/26/21 at 1927 by David Moreira RN TIME 1929
[~2021-12-26 11:02] MED LIST: ACET-1182 PO; ALBU3SOL83 IH; DOCU-299 PO; MERO1PIG IV; MUC104 INH; ONDA2SOL45 IVP; PEP20I IV
--- NOTE | 2021-12-26 11:22 | NUR ---
PT W/C TO BED 4.
--- NOTE | 2021-12-26 11:52 | NUR ---
51 Y/O MALE BIB MOTHER C/O GENERAIZED WEAKNESS X 1WK. O2 SAT 85% RA. MOTHER STATED HE HAD ALOC ALL NIGHT. O2 CURRENTLY 99% ON 2 LITERS NASAL CANULA. ACCORDING TO MOTHER HE IS MORE LETHARIC THAN USUAL. PMH: TRAECHEOSTOMY , O2 NC 2 LMP AT HOME, MUSCLE DYSTROPHY
--- NOTE | 2021-12-26 12:16 | NUR ---
BLOOD WALKED OVER TO LAB AND HANDED TO JERONIMO
--- NOTE | 2021-12-26 12:30 | NUR ---
RT BEDSIDE COLLECTING ABG
--- NOTE | 2021-12-26 12:38 | NUR ---
DR. AVENDANO BEDSIDE EVALUATING PT
[2021-12-26] MEDS ORDERED: NACL 0.9% 1,000 ML IV ONE (12:40)
--- NOTE | 2021-12-26 12:40 | NUR ---
XRAY AT BEDSIDE
--- NOTE | 2021-12-26 12:49 | NUR ---
ARMEN, MIGUEL BEDSIDE WITH PATIENT
--- NOTE | 2021-12-26 12:55 | NUR ---
RT BEDSIDE PLACING PATIENT BACK ON VENTILATOR
--- NOTE | 2021-12-26 12:58 | NUR ---
AYESHA HADDAD COLLECTED AND HANDED TO CUSTOMER SOLUTIONS REPRESENTATIVE BEDSIDE
--- NOTE | 2021-12-26 13:15 | NUR ---
RECEIVED REPORT FROM SOL ANDRADE
--- NOTE | 2021-12-26 13:20 | NUR ---
Pt report given to LUPE SANFORD. Transfer of care at this time.
[2021-12-26 13:29] LABS: BASOPHILS # (AUTO) 0.1 K/uL (0.00-0.22); BASOPHILS % (AUTO) 0.4 % (0.0-2.0); EOSINOPHILS % (AUTO) 0.1 % (0.0-4.0); HEMATOCRIT 49.3 % (36-52); LYMPHOCYTES # (AUTO) 0.9 K/uL (2.0-11.5); MEAN CORPUSCULAR HEMOGLOBIN 29 pg (27-31); MEAN CORPUSCULAR HGB CONC 33 g/dL (33-37); MEAN CORPUSCULAR VOLUME 90.7 fL (80-94); MONOCYTES # (AUTO) 0.7 K/uL (0.8-1.0); MONOCYTES % (AUTO) 6.3 % (1.7-9.3); NEUTROPHILS # (AUTO) 9.8 K/uL (1.8-7.7); NEUTROPHILS % (AUTO) 85.2 % (42.2-75.2); PLATELET COUNT (AUTO) 219 K/uL (140-450); RED BLOOD CELL COUNT(AUTO) 5.43 MIL/uL (4.20-6.10); RED CELL DISTRIBUTION WIDTH 15.2 % (11.6-13.7); WHITE BLOOD COUNT (AUTO) 11.5 K/uL (4.8-10.8)
--- NOTE | 2021-12-26 13:30 | NUR ---
BROUGHT PT TO RADIOLOGY FOR HEAD CT
[2021-12-26] MEDS ORDERED: CEFEPIME 2,000 MG in DEXTROSE 5% 100 ML IV ONE (13:35)
--- NOTE | 2021-12-26 13:35 | NUR ---
Patient will be admitted to care of DR. MENEZES. Admited to ICU. Will go to room ICU 1. Belongings list completed. Report to LUPE SANFORD.
[2021-12-26] MEDS ORDERED: POTASSIUM CHLORIDE 10 MEQ TABER PO PRN (13:40)
[2021-12-26] MEDS ORDERED: guaiFENesin DM 200/20 MG-10 ML 10 ML UDC PO PRN (13:40)
[2021-12-26] MEDS ORDERED: HYDROcodone/APAP 7.5/325 MG 1 TAB PO PRN (13:40)
[2021-12-26] MEDS ORDERED: ZOLPIDEM 5 MG TAB PO PRN (13:40)
[2021-12-26] MEDS ORDERED: ACETAMINOPHEN 325 MG TAB PO PRN (13:40)
[2021-12-26] MEDS ORDERED: DOCUSATE SODIUM 100 MG GELCAP PO PRN (13:40)
--- NOTE | 2021-12-26 13:45 | NUR ---
TRANSFERRED PT TO ICU BED 1
--- NOTE | 2021-12-26 13:45 | NUR ---
TRANSPORTED PT FROM ED TO CT TO ICU W RNS PRESENT. BAGGED TO CT - PLACED ON VENT IN CT - BAGGED TO ICU - PLACED BACK ON VENT FROM ED. NO DISTRESS NOTED
--- NOTE | 2021-12-26 13:46 | NUR ---
PT TAKEN TO ICU VIA JIM WITH CLARIBEL RN, MELINA RN AND RT
--- NOTE | 2021-12-26 13:50 | NUR ---
RECIEVED PT ALERT AND ORIENTED TO PERSON. ABLE TO NOD TO ANSWER YES AND NO QUESTIONS. DENIES OF ANY PAIN. TRACH TO VENT. RHONCHI HEARD THROUGHOUT LUNG FERMIN. HOB ELEVATED. BOWEL SOUNDS ACTIVE X4 QUADS. ORIENTED PT TO STAFF AND ROOM. CALL LIGHT WITHIN REACH. WILL CONTINUE TO MONITOR.
[2021-12-26 14:17] LABS: PROTHROMBIN TIME 9.5 secs (10.8-13.4)
[2021-12-26] MEDS: DEXT 5% /NACL 0.9% 1,000 ML IV SCH ×2 (14:18→23:53)
[2021-12-26 14:30] LABS: MAGNESIUM 1.7 mg/dL (1.8-2.4); PHOSPHORUS 3.5 mg/dL (2.5-4.9); THYROID STIMULATING HORMONE 0.65 uIU/mL (0.34-3.74)
[2021-12-26 14:58] LABS: ANION GAP 19.7 (8-16); CARBON DIOXIDE 21.8 mmol/L (21-32); CHLORIDE 102 mmol/L (98-107); GLUCOSE 100 mg/dL (74-106); POTASSIUM 3.5 mmol/L (3.5-5.1); SODIUM SERUM 140 mmol/L (136-145); UREA NITROGEN, BLOOD 11 mg/dL (7-18)
[2021-12-26 14:59] LABS: ALBUMIN 3.8 g/dL (3.4-5.0); ASPARTATE AMINOTRANSFERASE 68 U/L (15-37); CREATININE 0.8 mg/dL (0.6-1.3); GFR ARICAN-AMERICAN 132 mL/min (>90); TOTAL BILIRUBIN 0.6 mg/dL (0.0-1.0)
[2021-12-26] MEDS ORDERED: NACL 0.9% 2,000 ML IV SCH (15:15)
--- NOTE | 2021-12-26 15:15 | NUR ---
NOTIFIED DR MENEZES ABOUT PT'S SBP 70-80, LACTIC ACID 5.3, ORDERED 2L NS BOLUS, INCREASE IVF TO D5 NS 120ML/HR, CONSULT DR FRANKLIN, CONSULT DR GALLARDO
--- NOTE | 2021-12-26 15:20 | NUR ---
DR BANGURA AND DR GARCIA NOTIFIED ABOUT CONSULT, DR GARCIA ORDERED REPEAT ABG
[2021-12-26] MEDS: NOREPINEPHRINE 4 MG in DEXTROSE 5% 250 ML IV PRN ×2 (16:04→16:05)
--- NOTE | 2021-12-26 16:04 | NUR ---
BLOOD PRESSURE 72/33. LEVOPHED STARTED AT 4MCG/MIN. WILL CONTINUE TO MONITOR BLOOD PRESSURE CLOSELY.
--- NOTE | 2021-12-26 16:11 | NUR ---
SEEN AND EXAMINED BY DR. BANGURA. NEW ORDER FOR PICC LINE. CONSENT SIGNED.
[2021-12-26 17:22] LABS: APPEARANCE,URINE CLEAR (CLEAR); BILIRUBIN,URINE NEGATIVE (NEGATIVE); BLOOD, URINE 1+ (NEGATIVE); COLOR,URINE YELLOW (YELLOW); LEUKOCYTE ESTERASE ,URINE NEGATIVE (NEGATIVE); NITRITE, URINE NEGATIVE (NEGATIVE); UGLUCOSE NEGATIVE (NEGATIVE)
[2021-12-26 17:50] LABS: RBC,URINE 11-20 (MOD) /HPF (0-5); WBC,URINE 0-5 /HPF (0-5)
[2021-12-26] MEDS: PIPERACILLIN/TAZOBACTAM 3.375 GM in DEXTROSE 5% 50 ML IV SCH (18:02)
--- NOTE | 2021-12-26 19:27 | NUR ---
REPORT GIVEN TO SENIOR QUALITY ASSURANCE ANALYST FOR CONTINUITY OF CARE
--- NOTE | 2021-12-26 19:30 | NUR ---
ASSUMED CARE OF PT.INITIAL ASSESSMENT COMPLETED.PT ASLEEP;EASILY AROUSABLE.ABLE TO FOLLOW SIMPLE COMMANDS LIKE OPENING OF MOUTH, SHAKES/NODS HEAD TO QUESTIONS.SR ON MONITOR.TRACH TO VENT FIO2 30% TV400 RATE 28 PEEP 5.SECRETIONS SUCTIONED NEEDED.W/PERIPHERAL IV TO RT AC G18 INTACT INFUSING ORDERED IVF AND RT HAND G24.SALINE LOCK.MAINTAINED ON NPO.W/CONDOM CATHETER ALREADY IN PLACE,NO URINE OUTPUT NOTED IN THE DRAINAGE BAG AT THIS TIME.SKIN INTACT.W/GENERALIZED WEAKNESS TO ALL EXTREMITIES.DENIES PAIN WHEN ASKED.CALL LIGHT WITHIN REACH.BED IN LOW POSITIONED.SCD TO BLE ALSO NOTED.WILL CONTINUE TO CLOSELY MONITOR PT
--- NOTE | 2021-12-26 20:00 | NUR ---
ORAL CARE USING VAP KIT RENDERED.PT ON PROTONIX FOR GI PROPHYLAXIS AND SCD TO BLE FOR DVT PROPHYLAXIS,REPOSITIONED FOR COMFORT
--- NOTE | 2021-12-26 23:51 | NUR ---
AVITIA CATHETER DRAINAGE BAG STILL NO URINE OUTPUT NOTED, BLADDER DISTENDED, BLADDER SCAN DONE 400ML NOTED; AVITIA CATHETER INSERTED 400ML CLEAR URINE NOTED.
[2021-12-27] VITALS (24 sets, daily range): BP systolic 131–169; BP diastolic 71–110
[2021-12-27] MEDS: PIPERACILLIN/TAZOBACTAM 3.375 GM in DEXTROSE 5% 50 ML IV SCH ×4 (00:12→18:53)
--- NOTE | 2021-12-27 04:15 | NUR ---
AM CARE, CYN CARE, AND ORAL CARE PROVIDED. PT TURNED AND REPOSITIONED.
[2021-12-27 06:02] LABS: BASOPHILS # (AUTO) 0.1 K/uL (0.00-0.22); BASOPHILS % (AUTO) 0.7 % (0.0-2.0); EOSINOPHILS # (AUTO) 0.3 K/uL (0-0.4); EOSINOPHILS % (AUTO) 2.4 % (0.0-4.0); HEMATOCRIT 40.5 % (36-52); HEMOGLOBIN 13.6 g/dL (12.0-18.0); LYMPHOCYTES # (AUTO) 1.2 K/uL (2.0-11.5); LYMPHOCYTES % (AUTO) 11.1 % (20.5-51.1); MEAN CORPUSCULAR HEMOGLOBIN 30 pg (27-31); MEAN CORPUSCULAR HGB CONC 34 g/dL (33-37); MEAN CORPUSCULAR VOLUME 89.3 fL (80-94); MONOCYTES # (AUTO) 0.7 K/uL (0.8-1.0); MONOCYTES % (AUTO) 6.5 % (1.7-9.3); NEUTROPHILS # (AUTO) 8.4 K/uL (1.8-7.7); NEUTROPHILS % (AUTO) 79.3 % (42.2-75.2); PLATELET COUNT (AUTO) 264 K/uL (140-450); RED BLOOD CELL COUNT(AUTO) 4.53 MIL/uL (4.20-6.10); RED CELL DISTRIBUTION WIDTH 14.5 % (11.6-13.7); WHITE BLOOD COUNT (AUTO) 10.6 K/uL (4.8-10.8)
[2021-12-27 06:10] LABS: ANION GAP 15.1 (8-16); CARBON DIOXIDE 24.1 mmol/L (21-32); CREATININE 0.6 mg/dL (0.6-1.3); POTASSIUM 3.2 mmol/L (3.5-5.1)
--- NOTE | 2021-12-27 07:05 | NUR ---
RECEIVED BEDSIDE REPORT FROM DEEPTHI MCLAUGHLIN RN FOR CONTINUITY OF CARE. PT IS SUPINE IN THE BED, AAOX4, EYES OPEN, PERRLA. TRACH TO VENT ACPRVC, FIO2 30%, VT 400, R 28, PEEP 5. SR ON THE MONITOR. BOWEL SOUNDS ACTIVE. F/C IN PLACE DRAINING TO GRAVITY. RAC 20G IN PLACE INFUSING D5NS @ 120 ML/HR. R HAND 24G IV IN PLACE. GENERALIZED WEAKNESS. SKIN INTACT. STANDARD PRECAUTIONS IN PLACE. SAFETY PRECAUTIONS MET. INITIAL ASSESSMENT COMPLETE, WILL CONTINUE TO CLOSELY MONITOR. Addendum: 12/27/21 at 0923 by Nimisha Diallo RN RECEIVED BEDSIDE REPORT FROM DEEPTHI MCLAUGHLIN RN FOR CONTINUITY OF CARE. PT IS SUPINE IN THE BED, AAOX4, EYES OPEN, PERRLA. TRACH TO VENT ACPRVC, FIO2 30%, VT 400, R 28, PEEP 5. SR ON THE MONITOR. BOWEL SOUNDS ACTIVE. F/C IN PLACE DRAINING TO GRAVITY. RAC 18G IN PLACE INFUSING D5NS @ 120 ML/HR. R HAND 24G IV IN PLACE. GENERALIZED WEAKNESS. SKIN INTACT. STANDARD PRECAUTIONS IN PLACE. SAFETY PRECAUTIONS MET. INITIAL ASSESSMENT COMPLETE, WILL CONTINUE TO CLOSELY MONITOR.
[2021-12-27 07:07] LABS: T4 (THYROXINE) 7.1 ug/dL (4.5-12.0)
[2021-12-27] MEDS: PANTOPRAZOLE 40 MG INJ VIAL IVP SCH (08:19)
--- NOTE | 2021-12-27 08:44 | NUR ---
MOTHER AT BEDSIDE. UPDATED REGARDING PT CONDITION. ALL QUESTIONS ANSWERED AT THIS TIME.
--- NOTE | 2021-12-27 08:53 | NUR ---
PT. WITH LOW CHANDNI SCALE AT HIGH RISK, CONTINUE TO FOLLOW PRESSURE INJURY PREVENTION INTERVENTIONS. -POSITIONING: TURN AND REPOSITION PATIENT Q 2H OR SOONER USE PILLOWS TO KEEP BONY PROMINENCES FROM DIRECT CONTACT WITH SURFACES USE REPOSITIONING WEDGES TO PROVIDE 30-DEGREE ANGLE FOR SIDE LYING POSITIONS OFFLOADING OR FOAM DRESSING TO ALL TUBING TO PREVENT MEDICAL DEVICES RELATED PRESSURE INJURY -RE-EVALUATING AND MANAGING INCONTINENCE MONITOR SKIN CONDITION DURING POSITION CHANGE DO NOT MASSAGE REDNESS, BONY PROMINENCES, DO NOT USE DONUT-TYPE DEVICES FREQUENT CYN-CARE AND PROVIDE BARRIER CREAMS PRN IF SOILING MOISTURE CONTROL BY OFFER BED LATHAM/URINAL /ABSORBENT PAD TO WICK AND HOLD MOISTURE KEEP SKIN DRY AND PROTECT FROM FRICTION -MANAGE FRICTION/SHEAR/MOBILITY KEEP HOB AT THE LOWEST LEVEL OF ELEVATION NO MORE THAN 30 DEGREE UNLESS OTHERWISE CONTRAINDICATED USE LIFT SHEET OR TRANSFER DEVICE TO MOVE PATIENT AND PREVENT LATERAL SHEER. PROTECT HEELS, ELBOWS BONY PROMINENCES WITH SKIN BERRIES OR FOAM DRESSING IF EXPOSED TO FRICTION OFFLOAD BILATERAL HEELS BY PLACING PILLOWS UNDER CALVES AT ALL TIMES, UNLESS OTHERWISE CONTRAINDICATED -PRESSURE REDISTRIBUTION SURFACE THERAPY -NUTRITION: PLEASE FOLLOW RD RECOMMENDATIONS AND OFFER NUTRITION SUPPLEMENTS IF ORDERED. PLEASE CONTACT WOUND CARE NURSE FOR ANY QUESTION AND CHANGE OF WOUND CONDITION.
[2021-12-27] MEDS ORDERED: PANTOPRAZOLE 40 MG TABEC PO SCH (09:00)
[2021-12-27] MEDS: DEXT 5% /NACL 0.9% 1,000 ML IV SCH ×2 (09:54→15:13)
--- NOTE | 2021-12-27 10:05 | NUR ---
PATIENT HAS BEEN SCREENED AND CATEGORIZED HIGH NUTRITION RISK. PATIENT WILL BE SEEN WITHIN 1-2 DAYS OF ADMISSION. /02/13 RECEIVED CONSULT AND REFERRAL FOR CHANDNI LOWER THAN 12 AND DYSPHAGIA [address]ONICA ALVAR[address]
[2021-12-27] MEDS ORDERED: MAGNESIUM OXIDE 400 MG TAB PO SCH (10:55)
--- NOTE | 2021-12-27 11:38 | NUR ---
DC PLANNIN YRS OLD MALE PATIENT WAS ADMITTED FROM HOME WITH A DX OF RESPIRATORY ACIDOSIS. PATIENT HAS A HX OF DEGENERATIVE MUSCLE DYSTROPY, ON T-BAR . PT IN ON TRACH TO VENT FIO2 30%. CXR SHOWED PNEUMONIA RAPID COVID TEST (-) CT HEAD NEGATIVE. ADMINISTERED IVF, AND ZOSYN. LEVO DRIP ON HOLD. CONSULTED WITH PULMO AND CARDIO. DC PLAN PER PATIENT RESPOND TO THE TREATMENT. CM TO FOLLOW
[2021-12-27] MEDS ORDERED: MAG SULF 2000 MG/WATER PREMIX 50 ML IV SCH (12:00)
--- NOTE | 2021-12-27 13:28 | NUR ---
[facility] ST AND [place] RT AT BEDSIDE. UNABLE TO DO SWALLOW EVALUATION DUE TO RISK FOR ASPIRATION. PT NOT READY FOR SWALLOW EVALUATION.
--- NOTE | 2021-12-27 13:35 | NUR ---
SEEN AND EXAMINED BY DR FRANKLIN
--- NOTE | 2021-12-27 13:40 | NUR ---
SEEN AND EXAMINED BY DR MENEZES.
--- NOTE | 2021-12-27 13:55 | NUR ---
SEEN AND EXAMINED BY DR GARCIA.
--- NOTE | 2021-12-27 14:01 | NUR ---
PER PT TO BE PLACED ON SBT CPAP 5 PS 10 AND MONITOR VENTILATION, OBTAIN ABG WITHING 30MIN-1 HOUR IF PT TOLERATES TRIAL.
--- NOTE | 2021-12-27 14:11 | NUR ---
PT RETURNED TO A/C PRVC DUE TO LOW VT AND INCREASED RR. EXPLAINED PT STATUS TO , PHYSICIAN STATES TO LEAVE PT ON PRVC AND TRY AGAIN TOMORROW. WILL CONTINUE TO MONITOR.
--- NOTE | 2021-12-27 14:36 | NUR ---
12/27/21 RD INITIAL ASSESSMENT COMPLETED PLEASE REFER TO NUTRITION ASSESSMENT UNDER CARE ACTIVITY FOR ESTIMATED NUTRITIONAL NEEDS. 1. WHEN/IF MEDICALLY APPROPRIATE, RECOMMEND NUTRITION SUPPORT TO PROVIDE ENERGY 2. CONSULT RD PRN 3. RD TO FOLLOW-UP 2-3 DAYS, HIGH RISK VERONICA ALVARADO RD
[2021-12-27] MEDS: POTASSIUM CHLORIDE 40 MEQ, LIDOCAINE MPF 1% 25 MG in NACL 0.9% 250 ML IV PRN (15:15)
--- NOTE | 2021-12-27 16:30 | NUR ---
AT BEDSIDE. UPDATED REGARDING PT CONDITION. ALL QUESTIONS ANSWERED AT THIS TIME.
[2021-12-27] MEDS: ONDANSETRON 4 MG/2 ML VIAL IM/IVP PRN ×2 (16:34→21:25)
--- NOTE | 2021-12-27 18:00 | NUR ---
PT CLEANED AND REPOSITIONED. NO STOOL NOTED. TOLERATED WELL. WILL CONTINUE TO MONITOR.
--- NOTE | 2021-12-27 19:00 | NUR ---
RECEIVED PT TRACH TO VENT WITH A PORTEX 8 ON A StudyAppsAPE R860 VENTILATOR SETTINGS AC VT400, RR28, PEEP+5, FIO2 30%. NO SIGNS OF RESPIRATORY DISTRESS NOTED AT THIS TIME PT'S CURRENT SATURATION IS 97%. ANTERIOR AUSCULTATION REVEALED BS COARSE CRACKLES THROUGHOUT ALL LUNG FERMIN, SXN SMALL PALE/YELLOW THICK SECRETIONS. HOB ELEVATED, ORAL CARE DONE, AMBU BAG AT BEDSIDE, VENT PLUGGED INTO RED OUTLET, ALARMS ARE ON AND AUDIBLE. WILL CONTINUE TO MONITOR. Addendum: 12/27/21 at 2009 by Marino Bajwa RT CORRECTION VENTILATOR MODE IS PRVC.
--- NOTE | 2021-12-27 19:20 | NUR ---
ENDORSED BEDSIDE REPORT TO ANA NIGHT RN FOR CONTINUITY OF CARE.
--- NOTE | 2021-12-27 19:20 | NUR ---
RECEIVED PATIENT ON BED ON HIGH FOWLERS POSITION; AWAKE, ALERT, ABLE TO VERBALIZED HIS NEEDS THRU WHISPERS AND GESTURES.. ON TRACH TO VENT AT 30% FIO2, S02 98%. CARDIACSCOPE SHOWS ON SINUS TACHY HR 117/MIN NO ARRHYTHMIAS SEEN. COMMENCING ON IV D5 NS AT 120 ML/HR VIA G 18 IV CANNULA ON RIGHT AC; PATENT AND INTACT. ABDOMEN IS SOFT,ACTIVE BOWEL SOUNDS; KEPT STILL NPO. WITH AVITIA CATH IN SITU TO GRAVITY DRAINAGE BAG DRAINING TO CLEAR YELLOW URINE OUTPUT; INTACT.
--- NOTE | 2021-12-27 21:25 | NUR ---
COMPLAINED OF NAUSEA AND VOMITING; IV ZOFRAN GIVEN.
[2021-12-27] MEDS ORDERED: hydrALAZINE 20 MG/ML VIAL IVP PRN (21:35)
--- NOTE | 2021-12-27 21:35 | NUR ---
NOTIFIED DR. MENEZES IF OKAY TO DOWNGRADE OR TRANSFER PATIENT TO TELEMETRY, HE SAID OKAY TO TRANSFER PATIENT. INFORMED HIM TOO THAT PATIENT'S DIASTOLIC BP IS MOST OF THE TIME OVER 100 AND SBP RANGING FROM 140 TO MORE THAN 150 , HE SAID IT'S OKAY AND HE SAID HE'LL JUST SEE TOMORROW.
--- NOTE | 2021-12-27 22:30 | NUR ---
PT WAS TRANSFERRED TO TELE ROOM 124B FROM ICU ROOM 1 ON VENTILATOR WITH NO COMPLICATIONS NO SIGNS OF RESPIRATORY DISTRESS NOTED AT THIS TIME. HOB ELEVATED, VENTILATOR IS PLUGGED INTO RED OUTLET, SUCTION EQUIPMENT IS SET UP, ALARMS ARE ON AN AUDIBLE
--- NOTE | 2021-12-27 22:50 | NUR ---
FOR TRANSFER TO TELEMETRY, REPORT GIVEN TO LUPE GOODWIN.
--- NOTE | 2021-12-27 23:30 | NUR ---
TRANSFERRED TO TELE ROOM 124B PER BED IN FAIR CONDITION. ENDORSED TO LUPE GOODWIN FOR CONTINUITY OF CARE.
[2021-12-28] VITALS (7 sets, daily range): BP systolic 120–132; BP diastolic 60–94
--- NOTE | 2021-12-28 | NUR ---
received from ICU via bed. alert awake. trach to vent accompanied by RT and RN .made pt comfortable hob>30 degrees.plan of care reviewed with patient. call correa within reach.
[2021-12-28] MEDS: DEXT 5% /NACL 0.9% 1,000 ML IV SCH ×3 (00:12→16:22)
[2021-12-28] MEDS: PIPERACILLIN/TAZOBACTAM 3.375 GM in DEXTROSE 5% 50 ML IV SCH ×4 (00:12→17:46)
[2021-12-28] MEDS: ONDANSETRON 4 MG/2 ML VIAL IM/IVP PRN ×3 (02:10→18:20)
--- NOTE | 2021-12-28 06:00 | NUR ---
PATIENT'S MOTHER MIGUEL NOTIFIED/INFORMED BY TELEPHONE THAT HER SON ALREADY TRANSFERRED TO TELEMETRY ROOM 124B.
[2021-12-28 06:02] LABS: BASOPHILS % (AUTO) 0.2 % (0.0-2.0); EOSINOPHILS % (AUTO) 0.2 % (0.0-4.0); HEMATOCRIT 42.6 % (36-52); HEMOGLOBIN 14.3 g/dL (12.0-18.0); LYMPHOCYTES % (AUTO) 9.8 % (20.5-51.1); MEAN CORPUSCULAR HEMOGLOBIN 29 pg (27-31); MEAN CORPUSCULAR HGB CONC 33 g/dL (33-37); MEAN CORPUSCULAR VOLUME 87.8 fL (80-94); MONOCYTES # (AUTO) 0.5 K/uL (0.8-1.0); MONOCYTES % (AUTO) 4.3 % (1.7-9.3); NEUTROPHILS # (AUTO) 8.9 K/uL (1.8-7.7); NEUTROPHILS % (AUTO) 85.5 % (42.2-75.2); PLATELET COUNT (AUTO) 180 K/uL (140-450); RED BLOOD CELL COUNT(AUTO) 4.85 MIL/uL (4.20-6.10); RED CELL DISTRIBUTION WIDTH 14.7 % (11.6-13.7)
[2021-12-28 06:13] LABS: WHITE BLOOD COUNT (AUTO) 10.5 K/uL (4.8-10.8)
[2021-12-28 06:14] LABS: ANION GAP 14.7 (8-16); CARBON DIOXIDE 21.8 mmol/L (21-32); CREATININE 0.4 mg/dL (0.6-1.3); POTASSIUM 3.5 mmol/L (3.5-5.1)
--- NOTE | 2021-12-28 07:43 | NUR ---
RECEIVED ON A RiseSCAPE R860 VENTILATOR WITH COMPRESSOR ON PLUGGED INTO RED OUTLET TOLERATING WELL WITHOUT ADVERSE REACTIONS NOTED TO A PORTEX DCT #8 AIRWAY SECURED WITH A SHON TRACH TIE CUFF PRESSURE CHECKED NOTED LOC AWAKE AND ALERT "MOUTHING WORDS" EQUAL CHEST RISE DEEP TRACHEAL SUCTION FOR SMALL THI WHITE SECRETINS AIRWAY PATENT
--- NOTE | 2021-12-28 07:50 | NUR ---
ROUTINE ABG COMPLETED POST PROCEDURE DEEP TRACHEAL SUCTION FOR SMALL THIN WHITE SECRETIONS AIRWAY PATENT
--- NOTE | 2021-12-28 08:00 | NUR ---
RECEIVED ENDORSEMENT FROM PM SHIFT NURSE; PT STABLE W/ PIV AT RAC 22 IV INFUSING, SALINE LOCK AT R. FOREARM PATENT. WILL CONTINUE TO MONITOR
--- NOTE | 2021-12-28 08:06 | NUR ---
CALLED DR. LESLIE GARCIA AT [facility] TO REVIEW ROUTINE ABG SAMPLE REPORT ERICK/MARVA TO PAGE FOREMENTIONED MD CALL BACK NUMBER AND PATIENT INFORMATION GIVEN
--- NOTE | 2021-12-28 09:25 | NUR ---
GASATERIA ATTENDANT'S REVIEWED ABG SAMPLE REPORT CONSENSUS FEEDBACK DECREASED MECHANICAL RATE TO 24 BPM GOOD CHEST RISE DEEP TRACHEAL SUCTION FOR SMALL THIN YELLOW SECRETIONS AIRWAY PATENT
[2021-12-28] MEDS: PANTOPRAZOLE 40 MG INJ VIAL IVP SCH (09:26)
--- NOTE | 2021-12-28 11:40 | NUR ---
PT'S SIGNIFICANT OTHER AT BEDSIDE WHEN DR. MENEZES IS HERE. WHEN ASK PCP REGARDING TO USING PICC FOR TPN SINCE PT FAIL SWALLOW EVALUATION. PCP SUGGESTING USING G-TUB FEEDING INSTEAD TPN SINCE PT'S GI SYSTEM FUNCTION NORMAL.
--- NOTE | 2021-12-28 12:15 | NUR ---
DC PLANNING: THE PATIENT PRESENTED FROM HOME WITH C/O ALOC AND LETHARGY. PATIENT HAS A H/O MUSCULAR DYSTROPHY WITH TRACHEOSTOMY. LACTIC ACID 5.3 ON ADMISSION, PH VIA ABG'S 7.148, PO2 15.9, O2 SAT 31.2. PATIENT PLACED ON VENTILATOR AT 30% FIO2, PANCULTURES ORDERED. STARTED ON A LEVOPHED GTT, GIVEN MG+ AND K+ RIDERS, STARTED ON ZOSYN. CXR SHOWS EVOLVING PNA AND POSSIBLE EDEMA, CT OF HEAD NEGATIVE FOR ACUTE FINDINGS. CONSULTS WITH CARDIOLOGY AND PULMONOLOGY ORDERED. CM SPOKE WITH THE PATIENTS MOTHER MIGUEL BY PHONE AND CONFIRMED THE PATIENTS ADDRESS AND PHONE NUMBER. HE LIVES IN A SINGLE STORY HOUSE WITH HIS MOTHER AND BROTHER RAMILA. HIS MOTHER IS HIS [facility] WORKER AND PRIMARY CAREGIVER. THE PATIENT IS TOTAL CARE AND IS ON SERVICE WITH [facility] ([phone]). HE IS SEEN BY RT AND AN RN WEEKLY. HE IS ABLE TO FEED HIMSELF AND IS NORMALLY ALERT AND VERBAL. HE HAS BEEN AT [facility] ABOUT 2 YEARS AGO. HE HAS DME OF A NEBULIZER MACHINE, SUCTION MACHINE, VENTILATOR, O2 CONCENTRATOR, HOSPITAL BED, 3 IN 1 COMMODE. HE SEES HIS PCP DR HENDRIX AT [facility] AND IS TAKEN TO APPOINTMENTS BY HIS MOTHER WHO HAS A WC VAN. ATHE PATIENT HAS HAD A PEG IN THE PAST BUT DID NOT WANT TO CONTINUE WITH FEEDINGS THIS WAY RELATED TO PERSISTENT ISSUES AND HAS BEEN TAKING PO'S AT HOME. THE PATIENT WAS EVALUATED BY [facility] WHO RECOMMENDS THAT THE PATIENT BE NPO. REGINE ENDORSED THIS TO THE PATIENTS MOTHER WHO STATES THAT IT IS THE PATIENTS DECISION NOT TO HAVE A PEG ALTHOUGH HIS MOTHER IS HIS DPOA IF HE IS UNABLE TO MAKE DECISIONS. REGINE CONFIRMED THAT THE PATIENT WANTS TO REMAIN FULL CODE. CM ALSO SPOKE WITH [facility] AND CONFIRMED THAT THE PATIENT IS ON SERVICE, CLINICAL NOTES WERE FAXED TO THEM PER THEIR REQUEST. WHEN PATIENT IS CLINICALLY STABLE FOR DC HOME TRANSPORT WILL EITHER BE ARRANGED WITH [facility] OR [facility] CAN ASSIST. REGINE WILL FOLLOW. Addendum: 12/28/21 at 1246 by Christa Vaca CM Amended: Links added. Addendum: 12/31/21 at 1547 by Christa Vaca CM DC PLANNING: PATIENT REMAINS TRACH TO VENT WITH FIO2 OF 30%. PATIENT CONTINUES TO REFUSE G-TUBE PLACEMENT BUT AGREED TO AN NGT FOR FEEDINGS. REPEAT CXR SHOWS INCREASED OPACITIES SUGGESTIVE OF INCREASED PULMONARY EDEMA. K+ 2.9, K+ RIDER X 1 GIVEN. MG+ 1.5, MG+ RIDER X 1 ALSO GIVEN. REMAINS ON ZOSYN IV, CM WILL FOLLOW. Addendum: 01/03/22 at 1642 by Christa Vaca CM DC PLANNING: CM MET WITH THE PATIENT AND HIS MOTHER MIGUEL AT BEDSIDE TO DISCUSS THE DC PLAN. THE PATIENT IS CURRENTLY UNDERGOING CPAP TRIALS WITH PMV, TOLERATING 3 HRS, ON VENTILATOR IN SIMV MODE. THE PATIENT'S NGT WAS DC'D YESTERDAY IT WAS MIGRATING UP, PATIENT CURRENTLY ON GENTAMYCIN IV FOR ASPIRATION PNA. REGINE ALSO SPOKE WITH ST [facility] WHO STATES THAT THE PATIENT SHOULD BE ABLE TO EAT IN ABOUT [address] TREATMENTS AND IF HIS RESPIRATORY STATUS IMPROVES. CM DISCUSSED THE POTENTIAL NEED FOR CONTINUED IV ABX AT HOME WELL THE LACK OF NUTRITION SOURCE AND THE PATIENTS CONTINUED NEED FOR VENTILATOR SUPPORT. THE PATIENTS MOTHER HAS SPOKEN WITH THE HOSPICE COMPANY AND THEIR RT WILL MEET THE PATIENT AT HOME WHEN HE'S DC'D TO SET UP THE VENT AND PUT HIM ON IT. THE MOTHER STATES THAT SHE IS COMFORTABLE WITH MANAGING THE PATIENT ON A VENTILATOR AND HAS DONE THIS IN THE PAST. CM ENDORSED THAT IF THE PATIENT DC'S ON IV ABX THAT HIS MOTHER MIGHT NEED TO ADMINISTER THEM DEPENDING ON THE FREQUENCY, THE MOM STATES SHE WILL DO THIS. THE PATIENT CONTINUES TO REFUSE G-TUBE PLACEMENT AND DOES NOT WANT THE NGT. HE IS ALSO REFUSING SNF PLACEMENT HE HAD A BAD EXPERIENCE AT ONE IN THE PAST. REGINE WILL SPEAK WITH THE PATIENTS HOSPICE AGENCY TO SEE WHAT KIND OF SUPPORT THEY CAN PROVIDE FOR IV ABX ADMINISTRATION, SPEECH THERAPY AND VENTILATOR WEANING. REGINE WILL FOLLOW. Addendum: 01/05/22 at 1510 by Christa Vaca CM DC PLANNING: REGINE SPOKE WITH THE PATIENT AND HIS MOTHER AT BEDSIDE. THE PATIENT HAS AN ORDER FOR GI CONSULT FOR PEG PLACEMENT. THE PATIENT REMAINS ON THE VENT BUT CONTINUES WITH VENT WEANING. CM DISCUSSED THE HOME PLAN FOR POTENTIAL CONTINUATION OF VENT WEANING, SPEECH THERAPY AND PEG FEEDINGS. REGINE SPOKE WITH TAMRA AT [facility] TO ASK ABOUT THE PATIENT CONTINUING ON SPEECH THERAPY AND VENT WEANING WELL PEG FEEDS. [facility] CAN CONTINUE THE SPEECH THERAPY AND VENT WEANING. CM WILL SEND ORDERS FOR PEG FEEDINGS VIA [employer] ONCE THE RECOMMENDATIONS ARE MADE AND ORDERS ARE ENTERED. REGINE WILL FOLLOW. Addendum: 01/07/22 at 1128 by Christa Vaca CM DC PLANNING: REGINE SPOKE WITH LUCI AT [facility], CLINICAL PACKET AND ORDERS FAXED TO THEM. HOSPICE WILL MAKE THE ARRANGEMENTS FOR TRANSPORT ONCE THEY'VE ARRANGED FOR G-TUBE SUPPLIES, [place] TORRES SPOKE WITH THE HOSPICE RT ERIBERTO VOGEL TO ENDORSE THE PATIENTS VENT SETTINGS AND NEEDS. REGINE THEN SPOKE WITH THE PATIENT AT BEDSIDE TO ENDORSE THE DC ARRANGEMENTS AND SPOKE WITH HIS MOTHER MIGUEL. MIGUEL WOULD PREFER BOLUS FEEDINGS, CM ASKED HER TO CALL [facility] REGARDING THIS. REGINE THEN SPOKE WITH [facility] AGAIN, NEW ORDERS NEEDED FOR BOLUS FEEDINGS. CM WITH THE [facility] [employer] WHO WILL MAKE HER RECOMMENDATIONS AND LET CM KNOW SO THAT A NEW ORDER CAN BE ENTERED AND SENT. REGINE WILL FOLLOW. Addendum: 01/07/22 at 1153 by Christa Vaca CM DC PLANNING: PATIENT TO BE PICKED UP BY [facility] AT 1400, PLAN ENDORSED TO THE CHARGE NURSE MYKE. CM WILL FOLLOW. Addendum: 01/07/22 at 1331 by Christa Vaca CM DC PLANNING: NEW ORDERS FOR ENTERAL FEEDINGS SENT TO [facility]. ORDERS FOR PATIENT TO CONTINUE ON GENTAMICIN IV TID X 5 DAYS, [facility] UNABLE TO ADMINISTER IV ABX BECAUSE OF THE FREQUENCY, STAFFING AND MOM WOULD BE OVERWHELMED IF THIS IS ADDED TO MANAGING THE PATIENTS VENT AND G-TUBE. ATTENDING MD MADE AWARE THAT GENT IV WILL NOT BE GIVEN AT HOME, ASKED FOR OTHER MEDICATION/ROUTE/FREQUENCY. CM WILL FOLLOW. Addendum: 01/07/22 at 1351 by Christa Vaca CM DC PLANNING: REGINE SPOKE WITH THE ATTENDING MD, ORDER GIVEN FOR GENTAMICIN 200 MG IM QD X 5 DAYS. ORDER FAXED TO [facility]. CM WILL FOLLOW.
--- NOTE | 2021-12-28 15:30 | NUR ---
RECEIVED REPORT FROM AJ ANDRADE
--- NOTE | 2021-12-28 15:58 | NUR ---
STABLE EQUAL CHEST RISE GOOD AERATION THROUGHOUT BILATERAL LUNG FERMIN AIRWAY PATENT
--- NOTE | 2021-12-28 16:03 | NUR ---
PAT/PRINTING MACHINE OPERATOR TO SPEAK WITH PATIENT TURN SUPERVISOR ASSIST/STANDBY OROPHARYNGEAL SUCTION FOR LARGE THIN PALE YELLOW SECRETIONS AIRWAY PATENT DEFLATED TRACHEOSTOMY TUBE CUFF TO FACILITATE PRESSURE THROUGH VOCAL CHORDS TOLERATED CUFF DEFLATION ALONG CONVERSION WITH PRINTING MACHINE OPERATOR REINFLATED TRACHEOSTOMY TUBE CUFF VENTILATOR CHECKED
--- NOTE | 2021-12-28 16:15 | NUR ---
CM AT BEDSIDE TO GO OVER PLAN OF CARE AND OPTIONS FOR PT
--- NOTE | 2021-12-28 18:41 | NUR ---
PT AWAKE IN BED, NO SOB, WITH C/O NAUSEA, ZOFRAN GIVEN ORDERED
[2021-12-29] VITALS: BP 125/65
--- NOTE | 2021-12-29 | NUR ---
ROUNDS , -O2 SAT 97 5 , NO COMPLAIN MADE . CALL LIGHT WITHIN REACH , ON TELE MONITOR .
[2021-12-29] MEDS: DEXT 5% /NACL 0.9% 1,000 ML IV SCH ×2 (00:29→16:19)
[2021-12-29] MEDS: PIPERACILLIN/TAZOBACTAM 3.375 GM in DEXTROSE 5% 50 ML IV SCH ×5 (01:00→23:11)
--- NOTE | 2021-12-29 02:00 | NUR ---
SLEEPING - O2 SAT 97 5. CALL LIGHT WITHIN REACH , ON TELE MONITOR .
[2021-12-29 04:00] VITALS: BP 126/66
--- NOTE | 2021-12-29 04:00 | NUR ---
ROUNDS , AWAKE - NO COMPLAIN MADE , O2 SAT WNL . ON TELE MONITOR ., CALL LIGHT WITHIN REACH .
[2021-12-29 05:40] LABS: BASOPHILS % (AUTO) 0.3 % (0.0-2.0); EOSINOPHILS % (AUTO) 0.3 % (0.0-4.0); HEMATOCRIT 39.6 % (36-52); HEMOGLOBIN 13.4 g/dL (12.0-18.0); LYMPHOCYTES # (AUTO) 1.3 K/uL (2.0-11.5); LYMPHOCYTES % (AUTO) 13.1 % (20.5-51.1); MEAN CORPUSCULAR HEMOGLOBIN 29 pg (27-31); MEAN CORPUSCULAR HGB CONC 34 g/dL (33-37); MONOCYTES # (AUTO) 0.4 K/uL (0.8-1.0); MONOCYTES % (AUTO) 4.6 % (1.7-9.3); NEUTROPHILS # (AUTO) 7.8 K/uL (1.8-7.7); NEUTROPHILS % (AUTO) 81.7 % (42.2-75.2); PLATELET COUNT (AUTO) 171 K/uL (140-450); RED BLOOD CELL COUNT(AUTO) 4.56 MIL/uL (4.20-6.10); WHITE BLOOD COUNT (AUTO) 9.6 K/uL (4.8-10.8)
--- NOTE | 2021-12-29 06:00 | NUR ---
AWAKE , O2 SAT 97 % - WILL CONT. TO MONITOR .
[2021-12-29 06:16] LABS: ANION GAP 15.7 (8-16); CARBON DIOXIDE 20.7 mmol/L (21-32); CREATININE 0.4 mg/dL (0.6-1.3)
--- NOTE | 2021-12-29 06:30 | NUR ---
SERUM K + LOW - ENDORSE TO GEN ANDRADE - THERE IS STANDING K RIDER ALREADY IN THE EMAR - BUT HE HAVE TO COORDINATE TO PHARMACIST IN HOUSE FOR [employer] .- INFORMED DR. DE LUNA
[2021-12-29 06:50] LABS: POTASSIUM 2.4 mmol/L (3.5-5.1)
--- NOTE | 2021-12-29 07:30 | NUR ---
ENDORSED- STABLE . AWAKE .
--- NOTE | 2021-12-29 07:31 | NUR ---
RECEIVED REPORT FROM GENERAL SURGEON NURSE. PATIENT LYING DOWN IN BED. ON TRACH TO VENT, AWAKE, ALERT, VENTILATED SPEECH, RESPONDS TO VOICE, NO DISTRESS NOTED. IV SITES INTACT, PATENT, AND INFUSING IVF PER MD ORDERS. SKIN INTACT, AVITIA CATHETER IN PLACE. REVIEWED PLAN OF CARE WITH PATIENT. VERBALIZED UNDERSTANDING. REINFORCEMENT NEEDED. SAFETY MEASURES IN PLACE, CALL LIGHT WITHIN REACH. WILL CONTINUE TO MONITOR.
[2021-12-29 08:00] VITALS: BP 121/79
[2021-12-29] MEDS: POTASSIUM CHLORIDE 40 MEQ, LIDOCAINE MPF 1% 25 MG in NACL 0.9% 250 ML IV PRN (08:32)
[2021-12-29] MEDS: PANTOPRAZOLE 40 MG INJ VIAL IVP SCH (08:32)
--- NOTE | 2021-12-29 08:40 | NUR ---
SCHEDULED MEDICATIONS DUE GIVEN. KCL 40 MEQ IN LIDOCAINE GIVEN PER PRN ORDERS.
--- NOTE | 2021-12-29 11:40 | NUR ---
SCHEDULED MEDICATIONS DUE GIVEN. WILL CONTINUE TO MONITOR.
[2021-12-29 12:00] VITALS: BP 116/78
--- NOTE | 2021-12-29 13:34 | NUR ---
PATIENT LYING DOWN IN BED, PERFORMED ORAL SUCTIONING. WILL CONTINUE TO MONITOR.
[2021-12-29 16:00] VITALS: BP 106/76
[2021-12-29] MEDS ORDERED: POLYVINYL ALCOHOL 1.4% OP 15 ML SOL OP PRN (16:05)
--- NOTE | 2021-12-29 16:39 | NUR ---
PER PT PLACED ON SBT, CPAP 5 PS 12 FIO2 30%. ALARMS ON AND FUNCTIONING. WILL CONTINUE TO MONITOR.
--- NOTE | 2021-12-29 17:30 | NUR ---
PATIENT LYING DOWN IN BED, AT BEDSIDE. NO DISTRESS NOTED. DENIES PAIN. WILL CONTINUE TO MONITOR.
--- NOTE | 2021-12-29 18:00 | NUR ---
PT REMAINS ON SBT CPAP 5 PS 12 FIO2 30% TOLERATING WELL. VT RANGING FROM 330-360ml. ALARMS REMAIN ON AND FUNCTIONING.
--- NOTE | 2021-12-29 19:20 | NUR ---
RECEIVED BEDSIDE REPORT FROM DAY RN. PT IS AAOX4. PT OBSERVED LAYING IN BED IN HIGH FOWLERS WATCHING TV. RESPIRATIONS ARE EQUAL AND UNLABORED ON TRACH TO VENT. VENT SETTINGS: A/C PRVC 30% VT 400 RR 24 +5 RR 24 SAT 93% 113BPM. PER REPORT PT FAILED ST EVAL CAN TOLERATED THICKEN FLUIDS AND ICE CHIPS. AVITIA CATH IS IN PLACE. IV ON RAC 18G INFUSING D5NS AT 80ML/H. AND RHA 24G SL. SKIN IS INTACT. POC DISCUSSED WITH PT. CALL LIGHT IS WITHIN REACH. WILL CONTINUE TO MONITOR.
--- NOTE | 2021-12-29 19:35 | NUR ---
GAVE REPORT TO CATCHER PLUG NURSE. PATIENT IN STABLE. CONDITION.
[2021-12-29 20:00] VITALS: BP 109/66
--- NOTE | 2021-12-29 20:07 | NUR ---
RECEIVED PT TRACH TO VENT WITH A PORTEX 8 ON A GE CARESCAPE R860 VENTILATOR SETTINGS PRVC VT400, RR24, PEEP+5, FIO2 30%. PT PRESENTS AWAKE, ALERT, AND COOPERATIVE, NO SIGNS OF RESPIRATORY DISTRESS NOTED AT THIS TIME CURRENTLY SATING 93%. ANTERIOR AUSCULTATION REVEALED BS COARSE CRACKLES THROUGHOUT ALL LUNG FERMIN, SXN MODERATE PALE/YELLOW THICK SECRETIONS. HOB ELEVATED, AMBU BAG AT BEDSIDE, VENT PLUGGED INTO RED OUTLET, ALARMS ARE ON AND AUDIBLE. WILL CONTINUE TO MONITOR.
--- NOTE | 2021-12-29 20:37 | NUR ---
ORAL CARE PROVIDED PT ABLE TO ASSIST AND FOLLOW COMMANDS. WATER GIVEN PER REQUEST. ALL NEEDS MET. CALL LIGHT IS WITHIN REACH. WILL CONTINUE TO MONITOR.
--- NOTE | 2021-12-29 22:00 | NUR ---
ROUNDS MADE. PT OBSERVED LAYING IN BED WATCHING TV. DENIES ANT DISTRESS. CALL LIGHT IS WITHIN REACH. WILL CONTINUE TO MONITOR.
[2021-12-30] VITALS: BP 99/60
--- NOTE | 2021-12-30 00:17 | NUR ---
VITAL SIGNS ARE WITHIN NORMAL LIMITS. ALL SAFETY MEASURES ARE IN PLACE. WILL CONTINUE TO MONITOR.
--- NOTE | 2021-12-30 02:42 | NUR ---
ROUNDS MADE PT OBSERVED LAYING IN BED WITH EYES CLOSED APPEARS TO BE ASLEEP.CHEST RISE AND FALL NOTED.
[2021-12-30] MEDS: DEXT 5% /NACL 0.9% 1,000 ML IV SCH ×2 (03:54→17:09)
[2021-12-30 04:00] VITALS: BP 101/58
--- NOTE | 2021-12-30 04:00 | NUR ---
VITAL SIGNS ARE WITHIN NORMAL LIMITS. ORAL CARE PROVIDED. ALL SAFETY MEASURES ARE IN PLACE. WILL CONTINUE TO MONITOR
[2021-12-30] MEDS: PIPERACILLIN/TAZOBACTAM 3.375 GM in DEXTROSE 5% 50 ML IV SCH ×3 (05:14→17:47)
[2021-12-30 06:36] LABS: ANION GAP 12.7 (8-16); CARBON DIOXIDE 21.3 mmol/L (21-32); CREATININE 0.3 mg/dL (0.6-1.3)
[2021-12-30 07:01] LABS: BASOPHILS % (AUTO) 0.2 % (0.0-2.0); EOSINOPHILS % (AUTO) 0.2 % (0.0-4.0); HEMATOCRIT 36.7 % (36-52); HEMOGLOBIN 12.3 g/dL (12.0-18.0); LYMPHOCYTES # (AUTO) 1.3 K/uL (2.0-11.5); LYMPHOCYTES % (AUTO) 14.1 % (20.5-51.1); MEAN CORPUSCULAR HEMOGLOBIN 29 pg (27-31); MEAN CORPUSCULAR HGB CONC 34 g/dL (33-37); MEAN CORPUSCULAR VOLUME 87.3 fL (80-94); MONOCYTES # (AUTO) 0.5 K/uL (0.8-1.0); MONOCYTES % (AUTO) 5.9 % (1.7-9.3); NEUTROPHILS # (AUTO) 7.2 K/uL (1.8-7.7); NEUTROPHILS % (AUTO) 79.6 % (42.2-75.2); PLATELET COUNT (AUTO) 156 K/uL (140-450); RED CELL DISTRIBUTION WIDTH 14.5 % (11.6-13.7); WHITE BLOOD COUNT (AUTO) 9.1 K/uL (4.8-10.8)
--- NOTE | 2021-12-30 07:19 | NUR ---
WILL ENDORSE TO DAY RN. PT IS STABLE.
--- NOTE | 2021-12-30 07:22 | NUR ---
RECEIVED BEDSIDE REPORT FROM WEB OFFSET PRESS FEEDER NURSE FOR CONTINUITY OF CARE. PT A/O X1. NOT ABLE TO MAKE NEEDS KNOWN. ON TRACH TO VENT. PT IS RESTING. PT BREATHING IS EVEN AND UNLABORED. NO SIGNS OR SYMPTOMS OF DISTRESS. SAFETY MEASURES IN PLACE. PT IS STABLE.
[2021-12-30 08:00] VITALS: BP 108/73
[2021-12-30] MEDS: PANTOPRAZOLE 40 MG INJ VIAL IVP SCH (09:57)
--- NOTE | 2021-12-30 10:58 | NUR ---
MOTHER AT BEDSIDE ASKING ABOUT WHEN PATIENT CAN BE OFF THE VENT AGAIN - ASKED IF HIS NUMBERS HAD IMPROVED FROM WHEN HE WAS ADMITTED - INFORMED MOTHER THAT WE WOULD ATTEMPT CPAP TRIALS AGAIN - MOTHER INSISTED THAT HE WANTS TO WEAR HIS PASSY NICOLASA VALVE (SPEAKING VALVE) AGAIN. PLACED PATIENT ON CPAP BUT PATIENT DID NOT HAVE SUFFICIENT TIDAL VOLUMES ON LOWER PRESSURE SUPPORTS AT THIS TIME. CPAP SET AT 5/12 WITH TIDAL VOLUMES AROUND 300ML CURRENTLY.
[2021-12-30 12:00] VITALS: BP 110/70
--- NOTE | 2021-12-30 12:00 | NUR ---
COVERED POTASSIUM OF 3.0 WITH KRIDER. WILL CHECK AGAIN TOMORROW. ON TRACH TO VENT. PT IS RESTING. PT BREATHING IS EVEN AND UNLABORED. NO SIGNS OR SYMPTOMS OF DISTRESS. SAFETY MEASURES IN PLACE. PT IS STABLE.
[2021-12-30] MEDS: POTASSIUM CHLORIDE 40 MEQ, LIDOCAINE MPF 1% 25 MG in NACL 0.9% 250 ML IV PRN (12:41)
--- NOTE | 2021-12-30 13:57 | NUR ---
12/30/21 RD FOLLOW UP COMPLETED PLEASE REFER TO NUTRITION ASSESSMENT UNDER CARE ACTIVITY FOR ESTIMATED NUTRITIONAL NEEDS. 1. WHEN/IF MEDICALLY APPROPRIATE TO INITIATE TF, RECOMMEND JEVITY 1.2 WITH A GOAL RATE OF 50 ML/HR X 24 HR -FWF: 100 ML Q6H OR PER MD -START AT 10 ML/HR AND INCREASE BY 10 ML Q4H TOLERATED -WILL PROVIDE 1440 KCAL AND 67 GM PROTEIN, MEETING 100% OF ESTIMATED NUTRITIONAL NEEDS 2. CONSIDER TPN IF PT NOT ON TF 3. RECOMMEND SWALLOW EVAL BEFORE STARTING ORAL INTAKE 4. RD TO FOLLOW-UP 2-3 DAYS, HIGH RISK VERONICA ALVARADO RD
[2021-12-30 16:00] VITALS: BP 140/91
--- NOTE | 2021-12-30 16:00 | NUR ---
PT HEART RATE HAS GONE DOWN FROM 140 TO 115. NOW LESS IN STRESS. PT IS RESTING. PT BREATHING IS EVEN AND UNLABORED. NO SIGNS OR SYMPTOMS OF DISTRESS. SAFETY MEASURES IN PLACE. PT IS STABLE.
--- NOTE | 2021-12-30 18:30 | NUR ---
EXPLAINED TO PT MOM ABOUT THE NG TUBE AND WHY IT IS IMPORTANT TO GET FEEDINGS FOR PT. PT MOM UNDERSTOOD AND AGREED TO NG TUBE WITH FEEDINGS. PT IS RESTING. PT BREATHING IS EVEN AND UNLABORED. NO SIGNS OR SYMPTOMS OF DISTRESS. SAFETY MEASURES IN PLACE. PT IS STABLE.
--- NOTE | 2021-12-30 19:30 | NUR ---
ENDORSED PT TO WRAPPER OPERATOR NURSE FOR CONTINUITY OF CARE. POC DISCUSSED.
--- NOTE | 2021-12-30 19:30 | NUR ---
RECEIVED BEDSIDE REPORT FROM DAY SHIFT RN FOR CONTINUITY OF CARE. PT WITH TRACH TO VENT 96% SATING. AVITIA CATH IN PLACE, DRAINING CLEAR YELLOW URINE. IV FLUIDS RUNNING PER MD ORDER, PT IS NOT IN ANY DISTRESS. BREATHING EVENT AND UNLABORED. ASPIRATION PRECAUTION IN PLACE, ALL SAFETY MEASURES IN PLACE. WILL CONTINUE TO MONITOR.
--- NOTE | 2021-12-30 19:34 | NUR ---
RECEIVED PT TRACH TO VENT WITH A PORTEX 8 ON A GE CARESCAPE R860 VENTILATOR SETTINGS SIMV VT400, RR18, PEEP+5, PS12, FIO2 30%. PT PRESENTS AWAKE AND COOPERATIVE, NO SIGNS OF RESPIRATORY DISTRESS NOTED AT THIS TIME CURRENTLY SATING 95%. ANTERIOR AUSCULTATION REVEALED BS COARSE CRACKLES THROUGHOUT ALL LUNG FERMIN, SXN SCANT PALE/YELLOW THICK SECRETIONS. HOB ELEVATED, ORAL CARE DONE, AMBU BAG AT BEDSIDE, VENT PLUGGED INTO RED OUTLET, ALARMS ARE ON AND AUDIBLE. WILL CONTINUE TO MONITOR.
[2021-12-30 20:00] VITALS: BP 122/76
--- NOTE | 2021-12-30 20:00 | NUR ---
NG TUBE INSERTED, WAITING FOR CHEST X-RAY RESULT FOR PLACEMENT.
--- NOTE | 2021-12-30 22:15 | NUR ---
CHEST X-RAY SHOWS NG TUBE IN PLACE. TUBE FEEDING STARTED PER MD ORDER.
[2021-12-31] VITALS: BP 138/93
--- NOTE | 2021-12-31 | NUR ---
PT WAS CLEANED AND CHANGED. PT HAD BOWEL MOVEMENT. PT IS NOT IS IN DISTRESS, IV FLUID RUNNING PER MD ORDER, FEEDING IS RUNNING PER MD ORDER. PT TOLERATING WELL. SAFETY MEASURES TAKEN. WILL CONTINUE TO MONITOR PT.
[2021-12-31] MEDS: PIPERACILLIN/TAZOBACTAM 3.375 GM in DEXTROSE 5% 50 ML IV SCH ×5 (00:10→23:46)
[2021-12-31] MEDS: DEXT 5% /NACL 0.9% 1,000 ML IV SCH ×2 (01:00→18:35)
--- NOTE | 2021-12-31 03:10 | NUR ---
PT IS SLEEPING COMFORTABLY IN BED. PT IS NOT IN DISTRESS. PT BREATHING EVEN AND UNLABORED. IV FLUIDS RUNNING PER MD ORDER. FEEDING RUNNING PER MD ORDER. ALL SAFETY MEASURES TAKEN. WILL CONTINUE TO MONITOR THE PT.
[2021-12-31 04:00] VITALS: BP 133/96
[2021-12-31 05:54] LABS: BASOPHILS % (AUTO) 0.4 % (0.0-2.0); EOSINOPHILS % (AUTO) 0.4 % (0.0-4.0); HEMATOCRIT 36.4 % (36-52); HEMOGLOBIN 12.3 g/dL (12.0-18.0); LYMPHOCYTES % (AUTO) 13.4 % (20.5-51.1); MEAN CORPUSCULAR HEMOGLOBIN 29 pg (27-31); MEAN CORPUSCULAR HGB CONC 34 g/dL (33-37); MONOCYTES # (AUTO) 0.5 K/uL (0.8-1.0); MONOCYTES % (AUTO) 6.1 % (1.7-9.3); NEUTROPHILS # (AUTO) 6.1 K/uL (1.8-7.7); NEUTROPHILS % (AUTO) 79.7 % (42.2-75.2); PLATELET COUNT (AUTO) 183 K/uL (140-450); RED BLOOD CELL COUNT(AUTO) 4.18 MIL/uL (4.20-6.10); RED CELL DISTRIBUTION WIDTH 14.3 % (11.6-13.7); WHITE BLOOD COUNT (AUTO) 7.7 K/uL (4.8-10.8)
[2021-12-31 06:37] LABS: CREATININE 0.3 mg/dL (0.6-1.3)
[2021-12-31 06:57] LABS: ANION GAP 12.9 (8-16)
--- NOTE | 2021-12-31 07:16 | NUR ---
PT IS AWAKE AND COMFORTABLY IN BED. PT IS NOT IN DISTRESS. PT BREATHING EVEN AND UNLABORED. IV FLUIDS RUNNING PER MD ORDER. FEEDING RUNNING PER MD ORDER. ALL SAFETY MEASURES TAKEN. ENDORSED TO AM NURSE PT IS STABLE.
--- NOTE | 2021-12-31 07:20 | NUR ---
RECEIVED REPORT FROM SUBSCRIPTION AGENT NURSE FOR CONTINUITY OF CARE. PT AWAKE IN BED, NON VERBAL. ON TRACH TO VENT WITH SETTINGS FIO2 30 PEEP 5 VT 400 RATE 18, BREATHING SYMMETRICAL. NGT IN PLACE WITH JEVITY 1.2 AT 50CC/HR. HOB KEPT ELEVATED. WITH RAC 18 RUNNING D5NS AT 80CC/HR. AVITIA CATHETER INTACT AND PATENT DRAINING YELLOW URINE ON GRAVITY. FLACC O. ALL SAFETY MEASURES IN PLACE.
[2021-12-31 07:35] LABS: POTASSIUM 2.9 mmol/L (3.5-5.1)
--- NOTE | 2021-12-31 07:35 | NUR ---
RECEIVED CALL FROM LAB REGARDING POTASSIUM 2.9. PT HAS PRN K ALREADY IN PLACE. CALLED PHARMACY, AWAITING PHARMACY TO SEND MEDICATION. DR DE LUNA ALSO MADE AWARE.
[2021-12-31 08:00] VITALS: BP 124/94
[2021-12-31] MEDS: POTASSIUM CHLORIDE 40 MEQ, LIDOCAINE MPF 1% 25 MG in NACL 0.9% 250 ML IV PRN (08:14)
[2021-12-31] MEDS: PANTOPRAZOLE 40 MG INJ VIAL IVP SCH (09:27)
--- NOTE | 2021-12-31 09:38 | NUR ---
SCHEDULED AM MEDICATIONS GIVEN ORDERED.
--- NOTE | 2021-12-31 10:50 | NUR ---
PT MORE ALERT TODAY AND RESPONSIVE, PT MOUTHING WORDS. ABLE TO RESPOND BY MOUTHING WORDS, NODDING HEAD OR BLINKING EYES. PT ABLE TO FOLLOW SOME COMMANDS. DENIES PAIN AT THIS TIME.
[2021-12-31 12:00] VITALS: BP 102/71
[2021-12-31] MEDS ORDERED: KCL 20 MEQ/WATER INJ PREMIX 100 ML IV SCH (14:00)
--- NOTE | 2021-12-31 14:30 | NUR ---
PT ASLEEP IN BED. ON TRACH TO VENT, BREATHING SYMMETRICAL. FLACC O. AVITIA CATHETER INTACT AND PATENT DRAINING YELLOW URINE. FREQUENT ROUNDS DONE. ALL SAFETY MEASURES IN PLACE
[2021-12-31 16:00] VITALS: BP 92/65
--- NOTE | 2021-12-31 17:30 | NUR ---
PT AWAKE, ABLE TO MAKE SOME NEEDS KNOWN BY MOUTHING WORDS, POINTING, NODDING/SHAKING HEAD AND BY BLINKING HIS EYES. PT ABLE TO FOLLOW SOME COMMANDS. ON TRACH TO VENT, BREATHING SYMMETRICAL. DENIES PAIN AT THIS TIME. NGT IN PLACE, HOB KEPT ELEVATED. NO NAUSEA/VOMITING NOTED. FREQUENT ROUNDS DONE.
--- NOTE | 2021-12-31 19:10 | NUR ---
ENDORSED PT TO PROFILE GRINDER TECHNICIAN NURSE. PT IN STABLE CONDITION
--- NOTE | 2021-12-31 19:20 | NUR ---
RECEIVED BEDSIDE REPORT FROM DAY SHIFT RN FOR CONTINUITY OF CARE. PATIENT SLEEPING COMFORTABLY ON BED, NOT IN SOB OR DISTRESS. IV FLUIDS AND FEEDING FORMULA RUNNING MD ORDERED. VAITIA CATH IN PLACE DRAINING CLEAR YELLOW. TRACH TO VENT 94% SATING. ALL SAFETY PRECAUTION TAKEN, WILL CONTINUE WITH PLAN OF CARE.
[2021-12-31 20:00] VITALS: BP 116/78
--- NOTE | 2021-12-31 20:50 | NUR ---
ALL DUE MEDS GIVEN, NO ADVERSE REACTION NOTED. WILL CONTINUE TO MONITOR THE PATIENT.
--- NOTE | 2021-12-31 23:54 | NUR ---
IV ANTIBIOTIC ADMINISTERED MD ORDER. NO ADVERSE REACTION NOTED. WILL CONTINUE TO MONITOR THE PATIENT.
[2022-01-01] VITALS (8 sets, daily range): BP systolic 95–122; BP diastolic 57–84
--- NOTE | 2022-01-01 02:10 | NUR ---
PATIENT IS SLEEPING. NO SOB OR DISTRESS. IV FLUIDS AND FEEDING FORMULA RUNNING MD ORDER. SAFETY MEASURES IN PLACE. CALL LIGHT WITHIN REACH.
--- NOTE | 2022-01-01 04:05 | NUR ---
PATIENT IS SLEEPING. NO SOB OR DISTRESS. IV FLUIDS AND FEEDING FORMULA RUNNING MD ORDER. SAFETY MEASURES IN PLACE. CALL LIGHT WITHIN REACH. WILL CONTINUE MONITORING.
[2022-01-01] MEDS: PIPERACILLIN/TAZOBACTAM 3.375 GM in DEXTROSE 5% 50 ML IV SCH ×3 (05:01→18:05)
[2022-01-01] MEDS: DEXT 5% /NACL 0.9% 1,000 ML IV SCH ×2 (06:38→21:00)
[2022-01-01 07:16] LABS: BASOPHILS % (AUTO) 0.4 % (0.0-2.0); EOSINOPHILS # (AUTO) 0.1 K/uL (0-0.4); EOSINOPHILS % (AUTO) 1.3 % (0.0-4.0); HEMATOCRIT 36.8 % (36-52); HEMOGLOBIN 12.1 g/dL (12.0-18.0); LYMPHOCYTES # (AUTO) 1.4 K/uL (2.0-11.5); LYMPHOCYTES % (AUTO) 17.5 % (20.5-51.1); MEAN CORPUSCULAR HEMOGLOBIN 29 pg (27-31); MEAN CORPUSCULAR HGB CONC 33 g/dL (33-37); MEAN CORPUSCULAR VOLUME 88.3 fL (80-94); MONOCYTES # (AUTO) 0.5 K/uL (0.8-1.0); MONOCYTES % (AUTO) 6.7 % (1.7-9.3); NEUTROPHILS # (AUTO) 5.8 K/uL (1.8-7.7); NEUTROPHILS % (AUTO) 74.1 % (42.2-75.2); PLATELET COUNT (AUTO) 199 K/uL (140-450); RED BLOOD CELL COUNT(AUTO) 4.17 MIL/uL (4.20-6.10); RED CELL DISTRIBUTION WIDTH 14.7 % (11.6-13.7); WHITE BLOOD COUNT (AUTO) 7.8 K/uL (4.8-10.8)
--- NOTE | 2022-01-01 07:29 | NUR ---
ENDORSED TO DAY SHIFT RN FOR CONTINUING OF PATIENT CARE. PATIENT STABLE.
--- NOTE | 2022-01-01 07:30 | NUR ---
RECEIVED BEDSIDE REPORT FROM REVIEW APPRAISER RN FOR CONTINUITY OF CARE. PATIENT AWAKE AND ALERT, ABLE TO MAKE NEEDS KNOWN. TRACH TO VENT WITH O2 SATURATION AT 99%. NOT IN SOB OR DISTRESS. IV FLUIDS INFUSING WELL. IV SITE ON RFA 18. INTACT AND PATENT. FEEDING FORMULA RUNNING MD ORDERED. AVITIA CATH IN PLACE DRAINING CLEAR YELLOW. PATIENT DENIES PAIN AT THE MOMENT. PLAN OF CARE DISCUSSED. ALL SAFETY PRECAUTION TAKEN, CALL LIGHT WITHIN REACH. WILL CONTINUE TO MONITOR.
[2022-01-01 07:38] LABS: ANION GAP 11.7 (8-16); CARBON DIOXIDE 24.2 mmol/L (21-32); CREATININE 0.3 mg/dL (0.6-1.3); POTASSIUM 3.9 mmol/L (3.5-5.1)
[2022-01-01] MEDS: PANTOPRAZOLE 40 MG INJ VIAL IVP SCH (09:01)
--- NOTE | 2022-01-01 09:35 | NUR ---
ALL SCHEDULED MEDS GIVEN. PT IS STABLE. NO DISTRESS NOTED. WILL CONTINUE TO MONITOR.
--- NOTE | 2022-01-01 10:10 | NUR ---
RT PLACED PATIENT ON CPAP TRIALS
--- NOTE | 2022-01-01 10:57 | NUR ---
(01/01/22) RD FOLLOW UP COMPLETED PLEASE REFER TO NUTRITION PROGRESS NOTE UNDER CARE ACTIVITY FOR ESTIMATED NUTRITION NEEDS. RD RECOMMENDATIONS: 1. CONSIDER INCREASING JEVITY 1.2 WITH A GOAL RATE OF 60 ML/HR X 24 HR -FWF: 100 ML Q6H OR PER MD -WILL PROVIDE 1440 ML TOTAL VOLUME, 1728 KCAL AND 80 GM PROTEIN 2. IF PT PASSES SWALLOW EVAL, CONSIDER REGULAR DIET IN CONSISTENCY/TEXTURES PER SLUBBER MACHINE OPERATOR REC. 3. RD TO FOLLOW-UP 2-3 DAYS, HIGH RISK JORDY MCMAHON MS, RDN
[2022-01-01] MEDS ORDERED: MAGNESIUM OXIDE 400 MG TAB NG SCH (12:05)
--- NOTE | 2022-01-01 13:55 | NUR ---
SPEECH THERAPIST AT PATIENT'S BEDSIDE.
--- NOTE | 2022-01-01 14:05 | NUR ---
assisted speech therapist with trial on passy zaynab - pt had passy zaynab placed in line with vent on cpap - cuff verified to be deflated - pt tolerated - plan for expanding cpap and lowering ps as tolerated - speech therapist will return during the week for further swallow evals on passy.
--- NOTE | 2022-01-01 15:10 | NUR ---
CHECKED ON PATIENT. PT IS STABLE. NO DISTRESS NOTED. WILL CONTINUE TO MONITOR.
--- NOTE | 2022-01-01 18:15 | NUR ---
ALL SCHEDULED MEDS GIVEN. PT IS STABLE. NO DISTRESS NOTED. WILL CONTINUE TO MONITOR.
--- NOTE | 2022-01-01 19:40 | NUR ---
ENDORSED TO HASHER OPERATOR NURSE FOR CONTINUITY OF CARE. PT IS STABLE.
[2022-01-01] MEDS: ONDANSETRON 4 MG/2 ML VIAL IM/IVP PRN (23:31)
[2022-01-02] VITALS: BP 117/65
[2022-01-02] MEDS: PIPERACILLIN/TAZOBACTAM 3.375 GM in DEXTROSE 5% 50 ML IV SCH ×4 (00:21→18:18)
--- NOTE | 2022-01-02 00:39 | NUR ---
PATIENT AWAKE HAS TRACH TO VENT PUT ON SIMV RATE 18, TV 400, FI02 35%, PEEP 5 SAT94%. LUNGS DIMINISH SUCTION PATIENT HAS THICK CREAMY SECRETION PATIENT CAN SUCTION HIS ON MOUTH.PATIENT HAS NGT IN LEFT NARE INFUSING JEVITY AT 50 HOUR. PATIENT HAS D5NS INFUSING AT 80 HOUR. C/O OF NAUSEA MEDICATED WITH ZOFRAN IVP AT 2325. 0000 PATIENT SLEEPING NO SIGNS OF DISTRESS. TEMP 97.7.
[2022-01-02 04:00] VITALS: BP 118/70
[2022-01-02] MEDS: DEXT 5% /NACL 0.9% 1,000 ML IV SCH ×2 (05:00→18:18)
[2022-01-02 08:00] VITALS: BP 101/68
[2022-01-02 08:00] LABS: BASOPHILS # (AUTO) 0.1 K/uL (0.00-0.22); BASOPHILS % (AUTO) 0.8 % (0.0-2.0); EOSINOPHILS # (AUTO) 0.2 K/uL (0-0.4); EOSINOPHILS % (AUTO) 2.4 % (0.0-4.0); HEMATOCRIT 36.2 % (36-52); HEMOGLOBIN 11.9 g/dL (12.0-18.0); LYMPHOCYTES # (AUTO) 1.5 K/uL (2.0-11.5); LYMPHOCYTES % (AUTO) 20.8 % (20.5-51.1); MEAN CORPUSCULAR HEMOGLOBIN 29 pg (27-31); MEAN CORPUSCULAR HGB CONC 33 g/dL (33-37); MEAN CORPUSCULAR VOLUME 88.5 fL (80-94); MONOCYTES # (AUTO) 0.5 K/uL (0.8-1.0); NEUTROPHILS # (AUTO) 4.9 K/uL (1.8-7.7); PLATELET COUNT (AUTO) 242 K/uL (140-450); RED BLOOD CELL COUNT(AUTO) 4.09 MIL/uL (4.20-6.10); RED CELL DISTRIBUTION WIDTH 14.3 % (11.6-13.7)
--- NOTE | 2022-01-02 08:00 | NUR ---
Received report from elva ANDRADE. patient alert, awake, oriented, nonverbal able to make needs known by mouth reader and hand writing. patient c/o nausea, able to oral suction himself. ngt @ right nare, unable to hear ( epigastric sound ) for placement. patient ngt tip is slightly pulled out. unable to place back. advised patient will reinsert when he feel better with nausea. call light within reach. encourage to call when assistance needed.
[2022-01-02 08:18] LABS: ANION GAP 11.7 (8-16); CARBON DIOXIDE 24.2 mmol/L (21-32); CREATININE 0.3 mg/dL (0.6-1.3); POTASSIUM 3.9 mmol/L (3.5-5.1)
[2022-01-02] MEDS: PANTOPRAZOLE 40 MG INJ VIAL IVP SCH (10:02)
[2022-01-02] MEDS: ONDANSETRON 4 MG/2 ML VIAL IM/IVP PRN (10:36)
--- NOTE | 2022-01-02 11:00 | NUR ---
patient refused to NGT placement, stated doesn't like tube feeding and I keep on feeling nauseated. education provided but still refused. will try again later.
[2022-01-02 12:00] VITALS: BP 118/80
[2022-01-02 16:00] VITALS: BP 114/77
--- NOTE | 2022-01-02 16:18 | NUR ---
Dr. Gonzalez informed patient was evaluated swallowing yesterday per speech therapy clarification order. aware patient has ivf infusing. order recived to reevaluate swallow tomorrow. noted and carried out.
--- NOTE | 2022-01-02 17:44 | NUR ---
patient has MDRO on zosyn but culture and sensitivity (resistance) ID dr. tirado consulted. s/w aliyah answering service.
[2022-01-02] MEDS ORDERED: GENTAMICIN PER PHARMACY MC PRN (19:10)
--- NOTE | 2022-01-02 19:20 | NUR ---
ID consult made rounds.
[2022-01-02 20:00] VITALS: BP 91/65
[2022-01-02] MEDS ORDERED: GENTAMICIN 120 MG in DEXTROSE 5% 100 ML IV SCH (20:00)
[2022-01-03] VITALS: BP 90/72
--- NOTE | 2022-01-03 01:19 | NUR ---
PATIENT AWAKE ALERT NPO TO HAVE SWALLOW EVAL IN A.M. PATIENT HAS NO NGT DAY NURSE REJI TOOK OUT SAID WAS AWARE. ON MONITOR SINUS NO C/O OF PAIN OR NAUSEA HAS TRACH TO VENT SIMV RATE 18, TV 400, FI02 40%, PEEP 5 SAT 98% D5NS INFUSING AT 100 HOUR. HAS 18 GA RIGHT WRIST. TEMP 97.5 PATIENT IS IN ISOLATION FOR MDRO. TO RECEIVE GENT AT 0500
[2022-01-03 04:00] VITALS: BP 95/74
[2022-01-03] MEDS ORDERED: GENTAMICIN 80 MG/2 ML VIAL ONE (04:49)
[2022-01-03] MEDS: GENTAMICIN 100 MG in DEXTROSE 5% 100 ML IV SCH ×3 (05:00→20:49)
--- NOTE | 2022-01-03 07:30 | NUR ---
RECEIVED REPORT FROM PACKAGING SPECIALIST NURSE FOR CONTINUITY OF CARE. PT AWAKE IN BED, ABLE TO MAKE SOME NEEDS KNOWN BY MOUTHING WORDS, NODDING/SHAKING HEAD. ON TRACH TO VENT WITH SETTINGS FIO2 30. PEEP 5, VT 400, RATE 18. BREATHING SYMMETRICAL. WITH RAC 18G RUNNING D5NS AT 100CC/HR. AVITIA CATHETER INTACT AND PATENT. NO NGT NOTED PER REPORT NGT WAS REMOVED YESTERDAY, PENDING SWALLOW RE-EVAL TODAY. CALL LIGHT WITHIN REACH. ALL SAFETY MEASURES IN PLACE.
[2022-01-03 08:00] VITALS: BP 109/70
[2022-01-03] MEDS: DEXT 5% /NACL 0.9% 1,000 ML IV SCH ×2 (08:39→20:50)
[2022-01-03] MEDS: PANTOPRAZOLE 40 MG INJ VIAL IVP SCH (09:35)
--- NOTE | 2022-01-03 09:47 | NUR ---
SCHEDULED AM MEDICATIONS GIVEN ORDERED.
--- NOTE | 2022-01-03 11:19 | NUR ---
PT HAS AVITIA CATHETER, NO INDICATION NOTED FOR USE. DR MORRIS MADE AWARE, OBTAINED ORDER TO DC CATHETER.
--- NOTE | 2022-01-03 11:26 | NUR ---
AVITIA CATHETER REMOVED, PT TOLERATED WELL, NO BLEEDING NOTED.
[2022-01-03 12:00] VITALS: BP 108/80
--- NOTE | 2022-01-03 14:00 | NUR ---
PT SEEN BY SPEECH THERAPIST.
[2022-01-03] MEDS ORDERED: MAG SULF 2000 MG/WATER PREMIX 50 ML IV PRN (14:35)
[2022-01-03] MEDS ORDERED: POTASSIUM CHLORIDE 10 MEQ TABER PO PRN (14:35)
[2022-01-03 16:00] VITALS: BP 105/84
--- NOTE | 2022-01-03 17:08 | NUR ---
PLACED ON CPAP TRIAL NOTED GOOD CHEST RISE DEEP TRACHEAL SUCTION FOR MODERATE SEMI THICK PALE YELLOW SECRETIONS AIRWAY PATENT
--- NOTE | 2022-01-03 18:19 | NUR ---
PT AWAKE IN BED, ABLE TO MAKE SOME NEEDS KNOWN. DENIES PAIN AT THIS TIME. CALL LIGHT WITHIN REACH. ALL SAFETY MEASURES IN PLACE.
--- NOTE | 2022-01-03 19:33 | NUR ---
ENDORSED PT TO RF DESIGN ENGINEER NURSE.
--- NOTE | 2022-01-03 19:33 | NUR ---
PT CURRENT DIET IS TUBE FEEDING, PT DOESN'T HAVE NGT ANYMORE, REFUSES RE-INSERTION, DR MORRIS MADE AWARE, OBTAINED ORDER TO CHANGE DIET TO NPO
--- NOTE | 2022-01-03 19:37 | NUR ---
1914 PATIENT IS CURRENTLY ON CPAP MODE ON VENT.NO SOB NOTED. PATIENT WILL STAY ON THIS MODE UNLESS PT BECOMES SOB.
[2022-01-03 20:00] VITALS: BP 130/86
--- NOTE | 2022-01-03 20:40 | NUR ---
Handoff from _Alondra Hidalgo RN. Patient had x1 incontinence episode. Perineal care and repositioning. Given oral care at this time. SCD's on and functioning without incident. Patient has even unlabored breathing on cpap trial since 1700 from ventilator. Family hopeful patient can get calories without inserting peg tube. Patient NPO pending further swallow evaluation 01/04/22 per day team RN. Tony Murillo RN
--- NOTE | 2022-01-03 21:47 | NUR ---
PLACED PATIENT BACK ON SIMV MODE ON VENT. PATIENT SAID HE WAS TIRED AND WANTED TO SLEEP
[2022-01-04] VITALS: BP 112/76
[2022-01-04 04:00] VITALS: BP 97/63
[2022-01-04] MEDS: GENTAMICIN 100 MG in DEXTROSE 5% 100 ML IV SCH ×3 (04:34→20:56)
--- NOTE | 2022-01-04 07:02 | NUR ---
HANDOFF WITH BETTINA LESLIE RN. RICARDO TREVIZO RN
--- NOTE | 2022-01-04 07:15 | NUR ---
RECEIVED REPORT FROM CLIENT EXPERIENCE SPECIALIST NURSE FOR CONTINUITY OF CARE. PT ASLEP IN BED. ON TRACH TO VENT WITH SETTINGS FIO2 30, VT 400, PEEP 5, RATE 18, BREATHING SYMMETRICAL. FLACC O. RAC 18G, RUNNING DRNS AT 100CC/HR. CALL LIGHT WITHIN REACH. ALL SAFETY MEASURES IN PLACE.
[2022-01-04 08:00] VITALS: BP 122/83
[2022-01-04] MEDS: PANTOPRAZOLE 40 MG INJ VIAL IVP SCH (08:44)
[2022-01-04] MEDS: DEXT 5% /NACL 0.9% 1,000 ML IV SCH ×2 (08:58→22:17)
[2022-01-04 10:21] LABS: BASOPHILS % (AUTO) 0.5 % (0.0-2.0); EOSINOPHILS # (AUTO) 0.1 K/uL (0-0.4); EOSINOPHILS % (AUTO) 1.8 % (0.0-4.0); HEMATOCRIT 39.5 % (36-52); HEMOGLOBIN 13.2 g/dL (12.0-18.0); LYMPHOCYTES # (AUTO) 1.1 K/uL (2.0-11.5); LYMPHOCYTES % (AUTO) 12.9 % (20.5-51.1); MEAN CORPUSCULAR HEMOGLOBIN 29 pg (27-31); MEAN CORPUSCULAR HGB CONC 33 g/dL (33-37); MEAN CORPUSCULAR VOLUME 87.1 fL (80-94); MONOCYTES # (AUTO) 0.6 K/uL (0.8-1.0); MONOCYTES % (AUTO) 6.8 % (1.7-9.3); NEUTROPHILS # (AUTO) 6.4 K/uL (1.8-7.7); PLATELET COUNT (AUTO) 358 K/uL (140-450); RED BLOOD CELL COUNT(AUTO) 4.53 MIL/uL (4.20-6.10); RED CELL DISTRIBUTION WIDTH 14.3 % (11.6-13.7); WHITE BLOOD COUNT (AUTO) 8.2 K/uL (4.8-10.8)
--- NOTE | 2022-01-04 10:50 | NUR ---
NOTED IV LINE ON RAC PULLED OUT, RE-INSERTED ANOTHER LINE ON RIGHT FOREARM 22G, NO S/SX OF INFILTRATION NOTED.
[2022-01-04 11:29] LABS: ANION GAP 11.4 (8-16); CARBON DIOXIDE 25.6 mmol/L (21-32); CREATININE 0.3 mg/dL (0.6-1.3)
[2022-01-04 12:06] VITALS: BP 119/82
--- NOTE | 2022-01-04 13:24 | NUR ---
PT PLACED ON SBT CPAP 5 PS 10 FIO2 30%. ALARMS ON AND FUNCTIONING. WILL CONTINUE TO MONITOR.
--- NOTE | 2022-01-04 14:43 | NUR ---
PT HAS ORDER FOR TUBE FEEDING, PT DOESN'T HAVE PEG TUBE AT THIS TIME. REFUSES NGT PLACEMENT, DR MORRIS MADE AWARE, ORDER FOR CONSULT WITH DR SELLERS.
--- NOTE | 2022-01-04 15:00 | NUR ---
LEFT MESSAGE TO DR CRISOSTOMO REGARDING CONSULT
--- NOTE | 2022-01-04 15:51 | NUR ---
01/04/22 RD FOLLOW UP COMPLETED PLEASE REFER TO NUTRITION ASSESSMENT UNDER CARE ACTIVITY FOR ESTIMATED NUTRITIONAL NEEDS. 1. RECOMMEND CONTINUING TUBE FEEDING FOR NUTRITION -VITAL AF 1.2 WITH A GOAL RATE OF 50 ML/HR AND FWF 100 ML Q4H PER MD -WILL PROVIDE 1440 KCAL AND 90 GM PROTEIN, MEETING 100% OF ESTIMATED NUTRITIONAL NEEDS 2. CONSIDER TPN IF PT NOT ON TF 3. IF PT PASSES SWALLOW EVAL, RECOMMEND CLEAR LIQUID DIET AND ADVANCE TO REGULAR WITH TEXTURE MODIFICATION PER SPEECH THERAPIST 4. RD TO FOLLOW-UP 2-3 DAYS, HIGH RISK VERONICA ALVARADO RD
[2022-01-04 16:00] VITALS: BP 125/79
--- NOTE | 2022-01-04 17:35 | NUR ---
PT IN BED AWAKE, ABLE TO MAKE SOME NEEDS KNOWN. BREATHING SYMMETRICAL. PT ON SBT CPAP EARLIER, NOW BACK ON TRACH TO VENT. DENIES PAIN AT THIS TIME.
--- NOTE | 2022-01-04 18:41 | NUR ---
SPOKE WITH DR CRISOSTOMO REGARDING CONSULT, PT FAILED ST EVAL 3X AND AGREEING TO PEG TUBE PLACEMENT AT THIS TIME.
--- NOTE | 2022-01-04 19:26 | NUR ---
ENDORSED PT TO CUSTOMS VERIFIER NURSE.
[2022-01-04 20:00] VITALS: BP 127/84
[2022-01-04] MEDS: ONDANSETRON 4 MG/2 ML VIAL IM/IVP PRN (20:56)
--- NOTE | 2022-01-04 21:01 | NUR ---
REPORT RECEIVED FROM BETTINA LESLIE RN. PATIENT IS POSSIBLE SURGERY 01/05/22 FOR G-TUBE PLACEMENT, HELD HEPARIN SUBCUTANEOUS. PATIENT COMPLAINT OF NAUSEA TO CHARGE NURSE, MADI Muniz GIVEN PRN ONDANSETRON PER ORDERS. RICARDO TREVIZO RN
[2022-01-05] VITALS: BP 122/82
[2022-01-05 04:00] VITALS: BP 126/82
[2022-01-05] MEDS: GENTAMICIN 100 MG in DEXTROSE 5% 100 ML IV SCH ×3 (05:30→21:23)
--- NOTE | 2022-01-05 07:03 | NUR ---
HANDOFF WITH LUPE [place]. RICARDO TREVIZO RN
--- NOTE | 2022-01-05 07:30 | NUR ---
RECEIVED PATIENT ON BED ON HIGH FOWLERS POSITION; AWAKE, ALERT, ABLE TO MAKE HIS NEEDS KNOWN THRU WHISPERS AND GESTURES. ON TRACH TO VENT AT 30% FIO2, S02 98%. IVF D5 NS AT 120 ML/HR VIA RH 22G; PATENT AND INTACT. ABDOMEN IS SOFT,ACTIVE BOWEL SOUNDS; KEPT STILL NPO. WITH AVITIA CATH IN SITU TO GRAVITY DRAINAGE BAG DRAINING TO CLEAR YELLOW URINE OUTPUT; INTACT. CALL LIGHT WITHIN REACH. WILL CONTINUE TO MONITOR
[2022-01-05 08:00] VITALS: BP 104/74
--- NOTE | 2022-01-05 09:00 | NUR ---
DUE MEDS GIVEN
[2022-01-05] MEDS: PANTOPRAZOLE 40 MG INJ VIAL IVP SCH (09:26)
[2022-01-05] MEDS: DEXT 5% /NACL 0.9% 1,000 ML IV SCH (10:41)
--- NOTE | 2022-01-05 11:00 | NUR ---
CM AT BEDSIDE, SPOKE TO PT AND PT'S MOTHER
[2022-01-05 12:00] VITALS: BP 113/78
--- NOTE | 2022-01-05 13:00 | NUR ---
SPEECH THERAPIST AT BEDSIDE, SPOKE TO PT AND PT'S MOTHER
--- NOTE | 2022-01-05 13:51 | NUR ---
PT PLACED ON SBT 2 HOURS SET CPAP 5 PS 10 AND FIO2 30%. ALARMS ON AND FUNCTIONING. WILL CONTINUE TO MONITOR.
[2022-01-05] MEDS: ONDANSETRON 4 MG/2 ML VIAL IM/IVP PRN (15:35)
--- NOTE | 2022-01-05 15:35 | NUR ---
PT AWAKE IN BED, NO SOB, WITH C/O NAUSEA, ZOFRAN GIVEN ORDERED
[2022-01-05 16:00] VITALS: BP 119/67
--- NOTE | 2022-01-05 16:01 | NUR ---
PT COMPLETED SBT SUCCESSFULLY VT RANGING FROM 360-390 ml. PT WILL BE KEPT ON SBT FOR LONGER PERIOD IF TOLERATED. ALARMS ON AND FUNCTIONING. WILL CONTINUE TO MONITOR.
--- NOTE | 2022-01-05 17:43 | NUR ---
PT RETURNED TO A/C SIMV PT TOLERATED ABOUT TWO HOURS TOTAL OF SBT, WHEN ATTEMPTED TO INCREASE SBT TIME PT HAD EPISODES OF LOW VT AND INCREASED RR. PT AWAKE AND ALERT, FAMILY BEDSIDE. ALARMS ON AND FUNCTIONING.
--- NOTE | 2022-01-05 18:30 | NUR ---
PT RESTING, NO DISTRESS NOTED, NO C/O PAIN
[2022-01-05 20:00] VITALS: BP 123/76
[2022-01-06] VITALS: BP 116/74
[2022-01-06] MEDS: DEXT 5% /NACL 0.9% 1,000 ML IV SCH ×2 (01:37→11:39)
[2022-01-06 04:00] VITALS: BP 113/79
[2022-01-06] MEDS: GENTAMICIN 100 MG in DEXTROSE 5% 100 ML IV SCH ×3 (05:20→21:47)
--- NOTE | 2022-01-06 07:01 | NUR ---
HANDOFF WITH LUPE [place]. RICARDO TREVIZO RN
--- NOTE | 2022-01-06 07:30 | NUR ---
RECEIVED PATIENT ON BED ON HIGH FOWLERS POSITION; AWAKE, ALERT, ABLE TO MAKE HIS NEEDS KNOWN THRU WHISPERS AND GESTURES. ON TRACH TO VENT AT 30% FIO2, S02 98%. IVF D5 NS AT 120 ML/HR VIA RH 22G; PATENT AND INTACT. ABDOMEN IS SOFT,ACTIVE BOWEL SOUNDS; KEPT NPO. WITH AVITIA CATH IN SITU TO GRAVITY DRAINAGE BAG DRAINING TO CLEAR YELLOW URINE OUTPUT; INTACT. CALL LIGHT WITHIN REACH. WILL CONTINUE TO MONITOR
[2022-01-06 07:44] LABS: ANION GAP 14.4 (8-16); CREATININE 0.4 mg/dL (0.6-1.3)
[2022-01-06 07:53] LABS: POTASSIUM 2.4 mmol/L (3.5-5.1)
[2022-01-06 08:00] VITALS: BP 126/82
--- NOTE | 2022-01-06 08:40 | NUR ---
DUE MEDS GIVEN. TOLERATED WELL
--- NOTE | 2022-01-06 09:15 | NUR ---
DR ANGEL AT BEDSIDE FOR EGD PEG
[2022-01-06] MEDS ORDERED: diphenhydrAMINE 50 MG/ML VIAL ONE (09:22)
[2022-01-06] MEDS ORDERED: fentaNYL citrate 0.05 MG/ML VIAL ONE (09:23)
[2022-01-06] MEDS ORDERED: MIDAZOLAM 2 MG/2 ML VIAL ONE (09:23)
[2022-01-06] MEDS: PANTOPRAZOLE 40 MG INJ VIAL IVP SCH (09:26)
--- NOTE | 2022-01-06 09:45 | NUR ---
EGD PEG DONE. PT ASLEEP IN BED. WILL MONITOR VS Q15
[2022-01-06] MEDS ORDERED: ceFAZolin 1,000 MG VIAL ONE (10:07)
[2022-01-06] MEDS ORDERED: fentaNYL citrate 0.05 MG/ML VIAL IVP ONE (10:35)
[2022-01-06] MEDS ORDERED: MIDAZOLAM 2 MG/2 ML VIAL IVP ONE (10:35)
--- NOTE | 2022-01-06 11:30 | NUR ---
PT AWAKE IN BED, NO APPARENT DISTRESS, NO C/O PAIN
[2022-01-06 12:00] VITALS: BP 113/72
--- NOTE | 2022-01-06 14:42 | NUR ---
TUBE FEEDING STARTED ORDERED
--- NOTE | 2022-01-06 15:24 | NUR ---
CHECKED IN ON PT VENTILATOR INITIATED BACK INTO A/C SIMV DUE TO PERIODS OF APNEA. ALARMS ON AND FUNCTIONING. WILL CONTINUE TO MONITOR.
[2022-01-06 16:00] VITALS: BP 114/83
[2022-01-06] MEDS ORDERED: Z-GUARD PASTE TP PRN (17:20)
--- NOTE | 2022-01-06 17:39 | NUR ---
PT RESTING IN BED, NO C/O PAIN, NO SOB, TOLERATING TUBE FEEDING WELL 10CC RESIDUALS
[2022-01-06 23:42] VITALS: BP 98/56
[2022-01-07] MEDS: DEXT 5% /NACL 0.9% 1,000 ML IV SCH ×2 (00:09→12:50)
[2022-01-07 04:00] VITALS: BP 101/63
[2022-01-07] MEDS: GENTAMICIN 100 MG in DEXTROSE 5% 100 ML IV SCH (05:15)
[2022-01-07 07:28] LABS: ANION GAP 12.6 (8-16); CARBON DIOXIDE 22.2 mmol/L (21-32); CREATININE 0.4 mg/dL (0.6-1.3); POTASSIUM 3.8 mmol/L (3.5-5.1)
--- NOTE | 2022-01-07 07:35 | NUR ---
RECEIVED REPORT FROM LUPE RN. PT A/O X3. HOB ELEVATED. ABLE TO GESTURE AND MOUTH WORDS. DENIES PAIN. ON FIO2 30%, PEEP 5. TRACH TO VENT. GTUBE FEEDING @ 40 ML/HR WITH H20 100 ML FLUSH Q.4 HR. PEG TUBE DRESSING C/D/I. ALL NEEDS MET AT THIS TIME. SAFETY MEASURES IN PLACE. WILL MONITOR CLOSELY.
[2022-01-07 08:00] VITALS: BP 106/71
[2022-01-07] MEDS: PANTOPRAZOLE 40 MG INJ VIAL IVP SCH (09:14)
--- NOTE | 2022-01-07 09:15 | NUR ---
PT TOLERATING GTUBE FEEDING WITH 2ML RESIDUAL. HOB ELEVATED. NO SOB OR RESPIRATORY DISTRESS. ON RA. SUCTIONED PT X2. TOLERATED WELL. MOM (MIGUEL) AT BEDSIDE. NEEDS ALL MET AT THIS TIME. SAFETY MEASURES IN PLACE. WILL CONTINUE TO MONITOR.
--- NOTE | 2022-01-07 10:37 | NUR ---
01/07/22 RD FOLLOW UP COMPLETED PLEASE REFER TO NUTRITION ASSESSMENT UNDER CARE ACTIVITY FOR ESTIMATED NUTRITIONAL NEEDS. 1. RECOMMEND INCREASING THE JEVITY 1.2 GOAL RATE TO 50 ML/HR TOLERATED -FWF: 100 ML Q4H OR PER MD -PT WILL RECEIVE 1440 KCAL AND 67 GM PROTEIN AT A GOAL RATE OF 50 ML/HR MEETING 100% OF ESTIMATED NUTRITIONAL NEEDS 2. MONITOR BLOOD GLUCOSE LEVELS 3. IF BLOOD SUGAR IS NOT STABLE, RECOMMEND VITAL AF 1.2 WITH A GOAL RATE OF 50 ML/HR WITH THE SAME FWF -START AT 20 ML/HR AND INCREASE BY 10 ML Q4H TOLERATED 4. RD TO FOLLOW-UP 2-3 DAYS, HIGH RISK TAMMY ALVARADO RD Addendum: 01/07/22 at [address] RECEIVED A CALL FROM COUNCILLOR [employer] REGARDING BOLUS RECOMMENDATIONS: NICKIE WILL RECOMMEND TWOCAL HN (LUTHER) 3 CANS/DAY, 3 FEEDS/DAY AT 8AM, 2PM, AND 8PM -FLUSH THE TUBE WITH 150 ML FREE WATER BEFORE AND AFTER FEEDING -WILL PROVIDE 1425 KCAL, 60 GM PROTEIN AND 1400 ML FREE WATER DAILY, MEETING 100% OF ESTIMATED NUTRITIONAL NEEDS TAMMY ALVARADO RD Addendum: 01/07/22 at [address] IF PT DOES NOT TOLERATE TWOCAL HN, RECOMMEND JEVITY 1.2 (LUTHER) 5 CARTONS/DAY, 3 FEEDS/DAY AT 8 AM (2 CARTONS), 2 PM (1 CARTON), AND 8 PM (2 CARTONS) -FLUSH THE TUBE WITH 70 ML FREE WATER BEFORE AND AFTER FEEDING -WILL PROVIDE 1425 KCAL, 66 GM PROTEIN AND 1375 ML FREE WATER DAILY, MEETING 100% OF ESTIMATED NUTRITIONAL NEEDS TAMMY ALVARADO RD
[2022-01-07] MEDS ORDERED: IV Gentamycin IV (11:23)
[2022-01-07 12:00] VITALS: BP 125/91
[2022-01-07 12:52] VITALS: BP 125/91
--- NOTE | 2022-01-07 13:18 | NUR ---
DISCHARGE INSTRUCTIONS GIVEN TO MOM (MIGUEL EVANGELISTA) VIA TELEPHONE. VERBALIZED UNDERSTANDING.
--- NOTE | 2022-01-07 14:30 | NUR ---
CHARGE NURSE AND TEACHERS' ASSISTANT COMMUNICATING WITH DR. MENEZES REGARDING MEDICATION PRESCRIPTION WITH IV ANTIBIOTIC. CHARGE NURSE AND TEACHERS' ASSISTANT STATES PT IS OKAY FOR DISCHARGE. PACKET PRINTED OUT. WILL SPEAK WITH PT'S MOM (MIGUEL) REGARDING DISCHARGE INSTRUCTIONS.
--- NOTE | 2022-01-07 15:01 | NUR ---
PT IV DISCONTINUED. CATHETER INTACT. NO ACTIVE BLEEDING. GTUBE FEEDING STOPPED AND FLUSHED WITH 100 ML WATER. <5 ML RESIDUAL. HOB ELEVATED. PT TOLERATED WELL. NEEDS ALL MET AT THIS TIME. PT TRANSPORTED OUT VIA [facility].
== END 2022-01-07 15:15 | disposition home or self-care (01) | DRG 870 ==
LOC: MED 11:02 → MIC 13:31 → MTU 12-27 23:25
PROVIDERS: ADMIT Family Medicine; ATTEND Family Medicine
PROC: 5A1955Z Respiratory Ventilation, Greater than 96 Consecutive Hours (ICD-10-PCS; principal; 2021-12-26)
PROC: 0DH68UZ Insertion of Feeding Device into Stomach, Via Natural or Artificial Opening Endoscopic (ICD-10-PCS; 2022-01-06)
DX: A41.9 Sepsis, unspecified organism (principal); G93.41 Metabolic encephalopathy; J69.0 Pneumonitis due to inhalation of food and vomit; J15.1 Pneumonia due to Pseudomonas; J96.21 Acute and chronic respiratory failure with hypoxia; J96.22 Acute and chronic respiratory failure with hypercapnia; R65.21 Severe sepsis with septic shock; E46 Unspecified protein-calorie malnutrition; E87.2 Acidosis; Z68.1 Body mass index [BMI] 19.9 or less, adult; I10 Essential (primary) hypertension; Z20.822 Contact with and (suspected) exposure to COVID-19; G71.00 Muscular dystrophy, unspecified; R13.12 Dysphagia, oropharyngeal phase; E87.6 Hypokalemia; E83.42 Hypomagnesemia; E86.0 Dehydration; G71.01 Duchenne or Becker muscular dystrophy; Z87.01 Personal history of pneumonia (recurrent); Z93.0 Tracheostomy status
CPT/HCPCS: 36415; 36600; 70450; 71045; 80048; 80053; 80170; 81001; 82150; 82803; 83036; 83605; 83690; 83735; 83880; 84100; 84132; 84436; 84439; 84443; 84479; 84484; 85025; 85610; 85730; 87040; 87070; 87081; 87086; 87205; 92526; 93005; 94002; 94003; 96360; 99291; A4649; C9113; J0690; J0692; J1200; J1580; J1644; J2001; J2250; J2405; J2543; J3010; J3475; J3480; J3490; J7030; J7060; Q0092